=== PATIENT | female | born 1935 | race Caucasian/White ===

== ENCOUNTER 2023-08-30 10:30 | Inpatient (IN) ==
--- NOTE | 2023-08-30 11:06 | Emergency Department Note ---
Impression & Plan Closed left humeral fracture, Anterior subluxation of shoulder, Closed fracture of pubic ramus ED Provider Note NAME: FARHAT PACHECO AGE: 88 SEX: F : 1935 ARRIVES VIA: Ambulance INFORMANT: Patient, ED PROVIDER(S): Cedric Cui MD CHIEF COMPLAINT: Fall, shoulder and hip pain MEDICAL DECISION MAKING: Patient presents after a fall and associated shoulder and hip pain and was not ambulatory after the incident. No head strike or LOC with the patient does take Eliquis. CT of the head and cervical spine obtained along with plain films of the left upper and left lower extremity. Patient did not initially request any pain medication but was offered Tylenol which she was agreeable to. Patient also ordered an ice pack. Patient CT and cervical spine negative. The patient was noted be tachycardic and the patient did miss her morning medications the patient was ordered for Toprol 50 mg. EKG does show A-fib with RVR. Patient does not have any chest pains or shortness of breath. Patient's left upper extremity x-rays show concern for fracture dislocation of the left humerus. I did speak with Dr. Kerns stated that this could be secondary to hematoma but may be difficult for reduction in light of the patient's associated fracture pattern. He recommended CT of the shoulder which was ordered. Si[place] the shoulder does show impacted fracture subluxation. You further reviewed this and discussed this with some colleagues who recommended a splint. The patient and family were informed of the findings. The patient was trialed with a bout of ambulation given the patient's pubic rami fractures but the patient was unable to do this. Blood work was obtained and IV was established. Patient with a white count of 11.3 with hemoglobin 11 platelet count is unremarkable. Patient's creatinine 1.2. I did speak with case management to ascertain whether the patient could go to rehab today and they stated that this could not be done unless they were admitted. I subsequently did speak with the on-call hospitalist service and the patient was admitted by Dr. Skelton. Definitive Fracture Care note: Dx: Left humerus fracture sling, Plan: Immobilization, rest, ice, elevation, analgesia, orthopedic follow up in 3-5 days. Discussion w/ other healthcare providers: Dr. Skelton inpatient medicine service Dr. Kerns orthopedics ED case management Prior /Outside records reviewed: I reviewed the patient's outpatient medication list which includes atorvastatin metformin vitamin D3 metoprolol vitamin B12 Eliquis diltiazem furosemide glimepiride Differential diagnosis: Fracture, dislocation, contusion, strain, sprain, ICH, hemothorax, intra- abdominal injury, anemia among other causes were considered. Diagnostics, as interpreted by me: ECG: A-fib RVR, rate 107, normal QRS, left axis deviation no ST elevations. T wave inversions inferiorly and laterally. Cardiac monitoring: An order was placed for continuous cardiac monitoring. The monitor shows a rate of 95 with irregular irregular rhythm. Patient was placed on pulse oximetry Medical decision rules: None Imaging studies: I informally interpreted the patient's left shoulder x-ray which does show fracture dislocation of the left humerus with formal report to follow. I informally interpreted the patient's left hip and pelvis x-ray which does show pubic rami fracture. HPI: Patient presents due to concern for fall that occurred just prior to arrival. Patient reportedly was down for about an hour. The patient states that she was going to flower picker her dog when everything happened so quickly she fell to her left side. The patient was unable to get on her own. Patient currently complains of left shoulder and hip pain. Patient denies any chest pains or shortness of breath no head or neck pain. The patient does take Eliquis for what she believes is atrial flutter last took it yesterday morning. Patient denies any difficulty breathing or chest pain or shortness of breath no nausea vomiting and no LOC. PAST MEDICAL HISTORY: See Below PAST SURGICAL HISTORY: See Below SOCIAL HISTORY: See Below HOME MEDICATIONS: See Below ALLERGIES: See Below VITALS: See Below PHYSICAL EXAMINATION: GENERAL: NAD, non-toxic. EYE EXAM: Normal conjunctiva. PERRL, no anisocoria and EOM's grossly intact w/o pain. Head: Normocephalic atraumatic. OROPHARYNX: Moist mucus membranes, grossly normal dentition. NECK: Trachea midline, no stridor. No midline C-spine TTP. LUNGS: Clear to auscultation. Normal chest wall mechanics. HEART: NSR, no MRG. ABDOMEN: Abdomen soft, non-tender, no masses, no rebound or guarding. BACK: No CVA TTP. SKIN: No rashes and no bruising. UPPER EXTREMITIES: Left lateral shoulder pain with possible deformity, no pain to the distal humerus elbow forearm or wrist or hand. Median ulnar and radial nerves intact. LOWER EXTREMITIES: Grossly normal, no edema. Able to raise the right lower extremity off the bed decreased mobility left lower extremity secondary to pain, pain noted to the left lateral hip. NEURO EXAM: A&O x3, cranial nerves II-XII grossly intact, normal speech, moves all 4 extremities. Past Med/Surg History Medical History Atrial flutter Hyperlipidemia GERD (gastroesophageal reflux disease) Diabetes Surgical History H/O: hysterectomy Social History Smoking Status: Never smoker Preferred Language: Pashto Communication Ability: Effective Hearing Ability: Normal current occupational status: retired Feels Safe at Home: Yes Allergies Allergies Allergy/AdvReac Type Severity Reaction Status Date / Time No Known Allergies Allergy Unverified 08/30/23 16:14 Home Meds Home Medications Medication Instructions Recorded Confirmed apixaban 2.5 mg tablet (Eliquis) 2.5 mg PO BID 08/30/23 08/30/23 atorvastatin 10 mg tablet 10 mg PO DAILY 08/30/23 08/30/23 diltiazem HCl 240 mg 240 mg PO DAILY 08/30/23 08/30/23 capsule,extended release 24 hr, controlled (DILT-XR) metoprolol succinate 50 mg 50 mg PO DAILY 08/30/23 08/30/23 tablet,extended release 24 hr omeprazole 20 mg capsule,delayed 20 mg PO DAILYBB 08/30/23 08/30/23 release semaglutide 7 mg tablet (Rybelsus) 7 mg PO DAILY 08/30/23 08/30/23 Results & Data (ED) Vital Signs Vital Signs - 24 hr 08/30/23 10:46 08/30/23 11:37 08/30/23 13:57 Temperature 36.5 C Temperature Source Oral Pulse Rate 89 88 Pulse Rate [Right Finger] 95 H Respiratory Rate 20 20 22 Respiratory Effort / Characteristics Respiratory Depth Blood Pressure 135/104 H Blood Pressure [Right Arm] 116/84 Blood Pressure Mean 114 Blood Pressure Mean [Right Arm] 94 Blood Pressure Position [Right Arm] Pulse Oximetry 96 97 95 Oxygen Delivery Method Room Air Room Air Room Air Sepsis Recent Fever Within 48 Hours No Sepsis New/Unexplained Change in Mental Status N/A Sepsis Action Taken by Nursing No Action Required 08/30/23 14:00 08/30/23 15:00 08/30/23 16:25 Temperature Temperature Source Pulse Rate 109 H 131 H Pulse Rate [Right Finger] 130 H Respiratory Rate 20 18 Respiratory Effort / Characteristics Respiratory Depth Blood Pressure Blood Pressure [Right Arm] 131/85 Blood Pressure Mean Blood Pressure Mean [Right Arm] 100 Blood Pressure Position [Right Arm] Pulse Oximetry 96 95 Oxygen Delivery Method Room Air Room Air Sepsis Recent Fever Within 48 Hours Sepsis New/Unexplained Change in Mental Status Sepsis Action Taken by Nursing 08/30/23 17:00 Temperature Temperature Source Pulse Rate Pulse Rate [Right Finger] 133 H Respiratory Rate 18 Respiratory Effort / Characteristics Non-Labored Spontaneous Respiratory Depth Normal Blood Pressure Blood Pressure [Right Arm] 94/74 L Blood Pressure Mean Blood Pressure Mean [Right Arm] 80 Blood Pressure Position [Right Arm] Sitting Pulse Oximetry 96 Oxygen Delivery Method Room Air Sepsis Recent Fever Within 48 Hours Sepsis New/Unexplained Change in Mental Status Sepsis Action Taken by [facility] Medications Current Medication List: was personally reviewed by me Laboratory Data Attestation: I reviewed the patient's lab results. 08/30/23 16:08 08/30/23 16:08 Lab Results 08/30/23 Range/Units 16:08 WBC 11.32 H (4.8-10.8) K/ul RBC 3.75 L (4.20-5.40) M/uL Hgb 11.2 L (12.0-16.0) g/dl Hct 34.3 L (37.0-47.0) % MCV 91.5 (80.0-100.0) fL MCH 29.9 (25.0-34.0) pg MCHC 32.7 (32.0-36.0) g/dL RDW Std Deviation 41.5 (36.4-46.3) fL RDW Coeff of Joshua 12.4 (11.5-14.5) % Plt Count 171 (130-400) K/uL MPV 12.0 (9.4-12.4) fL Immature Gran % (Auto) 0.5 % Neut % (Auto) 85.0 % Lymph % (Auto) 7.7 % [place] % (Auto) 6.5 % Eos % (Auto) 0.1 % Baso % (Auto) 0.2 % Neut # (Auto) 9.62 H (1.40-6.50) K/uL Lymph # (Auto) 0.87 L (1.20-3.40) K/uL [place] # (Auto) 0.74 H (0.11-0.59) K/uL Eos # (Auto) 0.01 (0.00-0.50) K/uL Baso # (Auto) 0.02 (0.00-0.20) K/uL Immature Gran # (Auto) 0.06 (0.01-0.20) K/uL PT 11.8 (9.0-12.0) Seconds INR 1.1 (0.9-1.1) Sodium 138 (136-145) mmol/L Potassium 4.2 (3.5-5.1) mmol/L Chloride 106 (98-107) mmol/L Carbon Dioxide 22 (21-32) mmol/L Anion Gap 10 (3-11) BUN 31 H (6-23) mg/dl Creatinine 1.22 H (0.6-1.2) mg/dl Est Cr Clr Drug Dosing 31.0 ml/min Est GFR ( Amer) 46.5 ml/min Est GFR (Non-Af Amer) 40.1 ml/min BUN/Creatinine Ratio 25.4 H (10-20) Glucose 196 H (70-99(Fasting)) mg/dl Calcium 9.2 (8.6-10.3) mg/dl Magnesium 1.5 L (1.7-2.4) mg/dl Total Bilirubin 0.8 (0.2-1.0) mg/dl AST 18 (13-39) U/L ALT 15 (7-52) U/L Alkaline Phosphatase 72 (34-104) U/L Total Protein 6.7 (6.0-8.3) gm/dl Albumin 4.1 (3.4-5.0) gm/dl Globulin 2.6 (2.5-4.0) gm/dl Albumin/Globulin Ratio 1.6 (0.9-2) TSH 0.639 (0.300-4.500) uIu/ml Administered Medications Discontinued Medications Acetaminophen (Acetaminophen 500 Mg Tab) 1,000 mg PO NOW STA Stop: 08/30/23 11:25 Last Admin: 08/30/23 11:32 Dose: 1,000 mg Documented By: MICHAEL Metoprolol Tartrate (Metoprolol Tartrate 50 Mg Tab) 50 mg PO NOW STA Stop: 08/30/23 14:39 Last Admin: 08/30/23 14:46 Dose: 50 mg Documented By: DERIK Imaging Data Radiologist's Impression: Cervical Spine CT 08/30/23 11:23 CT cervical spine wo con CLINICAL HISTORY: Trauma TECHNIQUE: Multidetector row helical CT of the cervical spine was performed without administration of intravenous contrast. Coronal and sagittal reformations were obtained. Automated dose lowering techniques and/or adjustment according to patient size were utilized for this exam. Comparison: None available at the time of this dictation. FINDINGS: No acute fractures or subluxations are identified. Degenerative changes are seen in the visualized spine. The alignment is normal. Soft tissues are unremarkable. IMPRESSION: Degenerative changes without evidence of acute bony injury. ACT 112: Negative or not required by law. Electronically signed by: Kulwinder Blake M.D. 08/30/2023 12:30 PM Femur X-Ray 08/30/23 11:23 XR femur LT 2V routine HISTORY: 88 years-old Female fall, pain acute left thigh pain status post fall COMPARISON: Pelvis and left hip radiographs of same day TECHNIQUE: 2 views of the left femur FINDINGS: Age-indeterminate nondisplaced fracture of the left inferior pubic ramus. Demineralized appearance of the bones. Vascular calcifications. 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 No acute femoral fracture identified IMPRESSION: 1. No acute femoral fracture. 2. Age-indeterminate nondisplaced left inferior pubic ramus fracture. ACT 112: Negative or not required by law. The above report was generated using voice recognition software. It may contain grammatical, syntax or spelling errors. Electronically signed by: Juan Jose Boss M.D. 08/30/2023 1:[address] 08/30/23 11:23 CT head/brain wo con CLINICAL HISTORY: 88 years-old Female with Trauma. Acute head trauma TECHNIQUE: Multiple axial CT images of the head were obtained without contrast. A dose lowering technique was utilized adhering to the principles of ALARA. COMPARISON: CT cervical spine of same day FINDINGS: No acute intracranial hemorrhage, midline shift, intracranial mass, hydrocephalus, territorial ischemia or abnormal extra-axial collection. Involutional changes with chronic microvascular ischemic disease. The calvarium is intact. The paranasal sinuses, mastoid air cells, and middle ear cavities are clear. IMPRESSION: No acute intracranial abnormality or calvarial fracture. ACT 112: Negative or not required by law. The above report was generated using voice recognition software. It may contain grammatical, syntax or spelling errors. Electronically signed by: Juan Jose Boss M.D. 08/30/2023 12:40 PM Hip/Pelvis X-Ray 08/30/23 11:23 XR hip LT 2V w pelvis CLINICAL HISTORY: fall, pain COMPARISON STUDY: None. FINDINGS: Mild deformity at the left inferior pubic ramus consistent with an age-indeterminate fracture. Otherwise, no fracture or dislocation within the right or left femur. Soft tissues are unremarkable. Mild vascular calcifications are noted. IMPRESSION: Age-indeterminate nondisplaced fracture within the left inferior pubic ramus. ACT 112: Negative or not required by law. Electronically signed by: Nico Allen M.D. 08/30/2023 1:21 PM Humerus X-Ray 08/30/23 11:23 XR humerus LT 2V CLINICAL HISTORY: fall, pain COMPARISON STUDY: None. FINDINGS: There is a displaced left humeral head/neck fracture with anterior dislocation of the humeral head in relation to the glenoid. The mid to distal left humerus is intact. Soft tissue swelling within the left shoulder. IMPRESSION: Left humeral head/neck fracture with anterior dislocation. ACT 112: Negative or not required by law. Electronically signed by: Nico Allen M.D. 08/30/2023 1:22 PM Shoulder X-Ray 08/30/23 11:23 XR shoulder LT min 2V routine CLINICAL HISTORY: fall, pain TECHNIQUE: 3 views of the left shoulder were obtained. Comparison: None available at the time of this dictation. FINDINGS: Impacted fracture of the humeral head is seen. There is anterior dislocation of the glenohumeral joint. Soft tissue swelling is seen about the shoulder. IMPRESSION: Fracture dislocation of the humeral head. ACT 112: Negative or not required by law. Electronically signed by: Kulwinder Blake M.D. 08/30/2023 1:[address] 08/30/23 13:46 CT shoulder LT wo con HISTORY: 88 years-old Female eval shoulder dislocation/frx acute left shoulder pain with fracture status post fall COMPARISON: Radiographs of the left shoulder same day TECHNIQUE: Multiple axial CT images of the left shoulder were obtained without IV contrast. Additional 3-D rendering images were generated from a separate workstation and sent for review. A dose lowering technique was used consistent with the principals of KRISTINE. FINDINGS: Study is mildly motion degraded. Small moderate joint effusion/hemarthrosis of the glenohumeral joint with deep tissue edema/hemorrhage extending into the adjacent musculature and axillary space. Cardiomegaly with coronary arterial and mitral annular calcifications. The imaged lung mcallister appear clear. Demineralized appearance of the bones. Benign-appearing bone island of the glenoid. Moderate moderate osteophyte is the glenohumeral and AC joints. There is inferior subluxation of the glenohumeral joint with an acute comminuted, impacted and displaced proximal humeral fracture. Fractures involve the greater and lesser tuberosities and surgical neck. 3 cm of impaction with posterior lateral displacement measuring up to approximately 2 cm. No large intra- articular loose bodies identified. Tendons and ligaments are not well evaluated by CT technique. There is mild atrophy of the rotator cuff musculature. IMPRESSION: 1. Acute comminuted, impacted and displaced proximal humeral fracture as above. 2. Posttraumatic joint effusion/hemarthrosis with inferior glenohumeral subluxation. ACT 112: Negative or not required by law. The above report was generated using voice recognition software. It may contain grammatical, syntax or spelling errors. Electronically signed by: Juan Jose Boss M.D. 08/30/2023 3:02 PM Discharge Plan Visit Data Chief Complaint: Fall Stated Complaint: FALL, L SHOULDER PAIN ED Provider: Cedric Cui Discharge Problem: Closed left humeral fracture, Anterior subluxation of shoulder, Closed fracture of pubic ramus Patient Disposition: Admitted As Inpatient Discharge Instructions Interventions: ED Discharge Assessment Last Done: 08/30/23 17:59 Discharge Problem: Closed left humeral fracture Qualifiers: Encounter type: initial encounter Humerus Location: proximal Fracture morphology: other fracture Fracture alignment: displaced Qualified Code(s): S 42.292A - Other displaced fracture of upper end of left humerus, initial encounter for closed fracture Anterior subluxation of shoulder Qualifiers: Encounter type: initial encounter Laterality: left Qualified Code(s): S43.012A - Anterior subluxation of left humerus, initial encounter Closed fracture of pubic ramus Qualifiers: Encounter type: initial encounter Laterality: left Qualified Code(s): S32.592A - Other specified fracture of left pubis, initial encounter for closed fracture
[2023-08-30] MEDS: ACETAMINOPHEN 500 MG TAB PO STA (11:32)
--- NOTE | 2023-08-30 12:32 | CT Scan Report ---
CT cervical spine wo con CLINICAL HISTORY: Trauma TECHNIQUE: Multidetector row helical CT of the cervical spine was performed without administration of intravenous contrast. Coronal and sagittal reformations were obtained. Automated dose lowering techn iques and/or adjustment according to patient size were utilized for this exam. Comparison: None available at the time of this dictation. FINDINGS: No acute fractures or subluxations are identified. Degenerative changes are seen in the visualized sp ine. The alignment is normal. Soft tissues are unremarkable. IMPRESSION: Degenerative changes without evidence of acute bony injury. ACT 112: Negative or not required by law. Electronically signed by: Kulwinder Blake M.D. 08/30/2023 12:30 PM
--- NOTE | 2023-08-30 12:41 | CT Scan Report ---
CT head/brain wo con CLINICAL HISTORY: 88 years-old Female with Trauma. Acute head trauma TECHNIQUE: Multiple axial CT images of the head were obtained without contrast. A dose lowering tech nique was utilized adhering to the principles of ALARA. COMPARISON: CT cervical spine of same day FINDINGS: No acute intracranial hemorrhage, midline shift, intracranial mass, hydrocephalus, territorial ischem ia or abnormal extra-axial collection. Involutional changes with chronic microvascular ischemic disea se. The calvarium is intact. The paranasal sinuses, mastoid air cells, and middle ear cavities are clear . IMPRESSION: No acute intracranial abnormality or calvarial fracture. ACT 112: Negative or not required by law. The above report was generated using voice recognition software. It may contain grammatical, syntax o r spelling errors. Electronically signed by: Juan Jose Boss M.D. 08/30/2023 12:40 PM
--- NOTE | 2023-08-30 13:10 | XRay Report ---
XR shoulder LT min 2V routine CLINICAL HISTORY: fall, pain TECHNIQUE: 3 views of the left shoulder were obtained. Comparison: None available at the time of this dictation. FINDINGS: Impacted fracture of the humeral head is seen. There is anterior dislocation of the glenohumeral join t. Soft tissue swelling is seen about the shoulder. IMPRESSION: Fracture dislocation of the humeral head. ACT 112: Negative or not required by law. Electronically signed by: Kulwinder Blake M.D. 08/30/2023 1:08 PM
--- NOTE | 2023-08-30 13:22 | XRay Report ---
XR hip LT 2V w pelvis CLINICAL HISTORY: fall, pain COMPARISON STUDY: None. FINDINGS: Mild deformity at the left inferior pubic ramus consistent with an age-indeterminate fractu re. Otherwise, no fracture or dislocation within the right or left femur. Soft tissues are unremarkab le. Mild vascular calcifications are noted. IMPRESSION: Age-indeterminate nondisplaced fracture within the left inferior pubic ramus. ACT 112: Negative or not required by law. Electronically signed by: Nico Allen M.D. 08/30/2023 1:21 PM
--- NOTE | 2023-08-30 13:23 | XRay Report ---
XR humerus LT 2V CLINICAL HISTORY: fall, pain COMPARISON STUDY: None. FINDINGS: There is a displaced left humeral head/neck fracture with anterior dislocation of the humer al head in relation to the glenoid. The mid to distal left humerus is intact. Soft tissue swelling wi thin the left shoulder. IMPRESSION: Left humeral head/neck fracture with anterior dislocation. ACT 112: Negative or not required by law. Electronically signed by: Nico Allen M.D. 08/30/2023 1:22 PM
--- NOTE | 2023-08-30 13:34 | XRay Report ---
XR femur LT 2V routine HISTORY: 88 years-old Female fall, pain acute left thigh pain status post fall COMPARISON: Pelvis and left hip radiographs of same day TECHNIQUE: 2 views of the left femur FINDINGS: Age-indeterminate nondisplaced fracture of the left inferior pubic ramus. Demineralized appearance of the bones. Vascular calcifications. 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 No acute femoral fr acture identified IMPRESSION: 1. No acute femoral fracture. 2. Age-indeterminate nondisplaced left inferior pubic ramus fracture. ACT 112: Negative or not required by law. The above report was generated using voice recognition software. It may contain grammatical, syntax o r spelling errors. Electronically signed by: Juan Jose Boss M.D. 08/30/2023 1:33 PM
[2023-08-30] MEDS: METOPROLOL TARTRATE 50 MG TAB PO STA (14:46)
--- NOTE | 2023-08-30 15:03 | CT Scan Report ---
CT shoulder LT wo con HISTORY: 88 years-old Female eval shoulder dislocation/frx acute left shoulder pain with fracture st atus post fall COMPARISON: Radiographs of the left shoulder same day TECHNIQUE: Multiple axial CT images of the left shoulder were obtained without IV contrast. Additiona l 3-D rendering images were generated from a separate workstation and sent for review. A dose lowerin g technique was used consistent with the principals of KRISTINE. FINDINGS: Study is mildly motion degraded. Small moderate joint effusion/hemarthrosis of the glenohumeral joint with deep tissue edema/hemorrhage extending into the adjacent musculature and axillary space. Cardio megaly with coronary arterial and mitral annular calcifications. The imaged lung mcallister appear clear. Demineralized appearance of the bones. Benign-appearing bone island of the glenoid. Moderate moderate osteophyte is the glenohumeral and AC joints. There is inferior subluxation of the glenohumeral join t with an acute comminuted, impacted and displaced proximal humeral fracture. Fractures involve the g reater and lesser tuberosities and surgical neck. 3 cm of impaction with posterior lateral displaceme nt measuring up to approximately 2 cm. No large intra-articular loose bodies identified. Tendons and ligaments are not well evaluated by CT technique. There is mild atrophy of the rotator cu ff musculature. IMPRESSION: 1. Acute comminuted, impacted and displaced proximal humeral fracture as above. 2. Posttraumatic joint effusion/hemarthrosis with inferior glenohumeral subluxation. ACT 112: Negative or not required by law. The above report was generated using voice recognition software. It may contain grammatical, syntax o r spelling errors. Electronically signed by: Juan Jose Boss M.D. 08/30/2023 3:02 PM
[2023-08-30 16:31] LABS: Basophils # (auto) 0.02 K/uL (0.00-0.20); Basophils % (auto) 0.2 %; Eosinophils # (auto) 0.01 K/uL (0.00-0.50); Eosinophils % (auto) 0.1 %; Hematocrit (blood only) 34.3 % (37.0-47.0); Hemoglobin 11.2 g/dl (12.0-16.0); Immature Granulocytes # (auto) 0.06 K/uL (0.01-0.20); Immature Granulocytes % (auto) 0.5 %; Lymphocytes # (auto) 0.87 K/uL (1.20-3.40); Lymphocytes % (auto) 7.7 %; Mean Corpuscular Hemoglobin 29.9 pg (25.0-34.0); Mean Corpuscular Hgb Conc 32.7 g/dL (32.0-36.0); Mean Corpuscular Volume 91.5 fL (80.0-100.0); Monocytes # (auto) 0.74 K/uL (0.11-0.59); Monocytes % (auto) 6.5 %; Neutrophils # (auto) 9.62 K/uL (1.40-6.50); Platelet Count 171 K/uL (130-400); RDW Coefficient of Variation 12.4 % (11.5-14.5); RDW Standard Deviation 41.5 fL (36.4-46.3); Red Blood Count 3.75 M/uL (4.20-5.40); White Blood Count 11.32 K/ul (4.8-10.8)
[2023-08-30 16:44] LABS: Albumin Globulin Ratio 1.6 (0.9-2); Albumin Level 4.1 gm/dl (3.4-5.0); BUN Creatinine Ratio 25.4 (10-20); Bilirubin,Total 0.8 mg/dl (0.2-1.0); Calcium 9.2 mg/dl (8.6-10.3); Est GFR (African American) 46.5 ml/min; Est GFR (Non-African American) 40.1 ml/min; Globulin 2.6 gm/dl (2.5-4.0); Magnesium 1.5 mg/dl (1.7-2.4); Potassium 4.2 mmol/L (3.5-5.1); Total Protein 6.7 gm/dl (6.0-8.3)
[2023-08-30 16:57] LABS: INR 1.1 (0.9-1.1); Prothrombin Time 11.8 Seconds (9.0-12.0); Thyroid Stimulating Hormone 0.639 uIu/ml (0.300-4.500)
--- NOTE | 2023-08-30 17:47 | History & Physical Report ---
Date of Service August 30, 2023 Assessment & Plan (1) Atrial fibrillation with rapid ventricular response: Plan: Known diagnosis Suspected due to missing her usual medications - unknown if she has paroxysmal or permanent atrial fibrillation Her usual metoprolol was given in the ER, give diltiazem now Hold Eliquis due to acute fractures pending serial hemoglobin measurements (2) Fracture of left inferior pubic ramus: Plan: Hold Eliquis until hemoglobin stability established WBAT Consult orthopedics (3) Closed left humeral fracture: Plan: Arm sling consult orthopedics (4) Anterior subluxation of shoulder: (5) Hyperlipidemia: Plan: Continue atorvastatin (6) GERD (gastroesophageal reflux disease): Plan: Switch omeprazole for pantoprazole per hospital formuilary (7) Diabetes: Plan: HbA1C with AM labs Continue Rybelsus Novolog: --Goal BSG Range: Low 110 mg/dL, High 140 mg/dL --Correction Factor: 45 mg/dL/unit No carb coverage --BSGs ACHS if eating, q6h if npo Plan VTE Prophylaxis - deferred pending repeat serial hemoglobin Diet - T2DM Disposition - admit to med/tele Admission and Anticipated Discharge Date Admission Date: August 30, 2023 History of Present Illness Chief Complaint: Left shoulder pain Left hip pain Primary Care Provider: Keesha Younger MD Alicia Burden is an 88 year old female who presents to the ER after ground- level fall from standing while taking her dog outside this morning. Patient was on the ground for 1 hour when her family member went to check on her and found her on the ground. She did not hit her head but landed on the left side with left shoulder pain and left hip pain. She lives by herself at home. She is on Eliquis. Landed on grass. No chest pain, dizziness or shortness of breath prior to falling. No LOC. Lost her balance as she leaned over. Atrial fibrillation is known diagnosis. She missed all her morning medications. Poker Manager is Alfredo Pierce - Dr Gianna Luna. Allergies Allergy/AdvReac Type Severity Reaction Status Date / Time No Known Allergies Allergy Unverified 08/30/23 16:14 Home Medications Medication Instructions Recorded Confirmed Type apixaban 2.5 mg tablet (Eliquis) 2.5 mg PO BID 08/30/23 08/30/23 History atorvastatin 10 mg tablet 10 mg PO DAILY 08/30/23 08/30/23 History diltiazem HCl 240 mg 240 mg PO DAILY 08/30/23 08/30/23 History capsule,extended release 24 hr, controlled (DILT-XR) metoprolol succinate 50 mg 50 mg PO DAILY 08/30/23 08/30/23 History tablet,extended release 24 hr omeprazole 20 mg capsule,delayed 20 mg PO DAILYBB 08/30/23 08/30/23 History release semaglutide 7 mg tablet (Rybelsus) 7 mg PO DAILY 08/30/23 08/30/23 History Past Med/Surg History Medical History (Updated 08/30/23 @ 20:04 by Kendall Skelton MD) Atrial fibrillation Atrial flutter Hyperlipidemia GERD (gastroesophageal reflux disease) Diabetes Surgical History H/O: hysterectomy Social History Smoking Status: Never smoker Hx Alcohol Use: No Hx Substance Use: No Preferred Language: Urdu Communication Ability: Effective Hearing Ability: Normal Second Baker Required: No Beliefs That Will Affect Care: None Current Living Situation: Alone current occupational status: retired Other Information That Helps Us Care for You: No Feels Safe at Home: Yes Safety Concerns: Feels Safe At This Time Assistive Devices: Denture - Upper and Glasses Review of Systems Review of Systems: All systems reviewed & are unremarkable except as noted in HPI & below Physical Exam Constitutional: WD/WN, vitals as above Eyes: PERRL, conjunctivae normal, anicteric sclerae ENMT: Mouth: + dry oral mucous membranes Respiratory: normal respiratory effort, lungs clear to auscultation Cardiovascular: Rate/Rhythm: + tachycardic and + irregularly irregular Heart Sounds: no murmur Extremities: normal capillary refill; no calf tenderness and no pedal edema Gastrointestinal (Abdomen): normal bowel sounds, soft, nontender, no hepatosplenomegaly Musculoskeletal: painful swollen left shoulder, normal radial pulse distally with normal sensation 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 No pain on internal/external rotation of hips b/l Skin: no rashes, warm and dry Neurologic: awake; + does not move all extremities (movement of left shoulder painful) and not confused Psychiatric: A+Ox3, euthymic affect Results & Data Results & Data Vital Signs (Past 12 Hours) Vital Signs Temp Pulse Pulse Resp BP BP Pulse Ox 08/30/23 16:25 131 H 18 95 08/30/23 15:00 130 H 20 131/85 96 08/30/23 14:00 109 H 08/30/23 13:57 95 H 22 116/84 95 08/30/23 11:37 88 20 97 08/30/23 10:46 36.5 C 89 20 135/104 H 96 O2 Del Method 08/30/23 16:25 Room Air 08/30/23 15:00 Room Air 08/30/23 14:00 08/30/23 13:57 Room Air 08/30/23 11:37 Room Air 08/30/23 10:46 Room Air Laboratory Results Abnormal lab results 08/30/23 Range/Units 16:08 WBC 11.32 H (4.8-10.8) K/ul RBC 3.75 L (4.20-5.40) M/uL Hgb 11.2 L (12.0-16.0) g/dl Hct 34.3 L (37.0-47.0) % Neut # (Auto) 9.62 H (1.40-6.50) K/uL Lymph # (Auto) 0.87 L (1.20-3.40) K/uL [place] # (Auto) 0.74 H (0.11-0.59) K/uL BUN 31 H (6-23) mg/dl Creatinine 1.22 H (0.6-1.2) mg/dl BUN/Creatinine Ratio 25.4 H (10-20) Glucose 196 H (70-99(Fasting)) mg/dl Magnesium 1.5 L (1.7-2.4) mg/dl Diagnostic Findings CT head/brain wo con CLINICAL HISTORY: 88 years-old Female with Trauma. Acute head trauma TECHNIQUE: Multiple axial CT images of the head were obtained without contrast. A dose lowering technique was utilized adhering to the principles of ALARA. COMPARISON: CT cervical spine of same day FINDINGS: No acute intracranial hemorrhage, midline shift, intracranial mass, hydrocephalus, territorial ischemia or abnormal extra-axial collection. Involutional changes with chronic microvascular ischemic disease. The calvarium is intact. The paranasal sinuses, mastoid air cells, and middle ear cavities are clear. IMPRESSION: No acute intracranial abnormality or calvarial fracture. CT cervical spine wo con CLINICAL HISTORY: Trauma TECHNIQUE: Multidetector row helical CT of the cervical spine was performed without administration of intravenous contrast. Coronal and sagittal reformations were obtained. Automated dose lowering techniques and/or adjustment according to patient size were utilized for this exam. Comparison: None available at the time of this dictation. FINDINGS: No acute fractures or subluxations are identified. Degenerative changes are seen in the visualized spine. The alignment is normal. Soft tissues are unremarkable. IMPRESSION: Degenerative changes without evidence of acute bony injury. XR hip LT 2V w pelvis CLINICAL HISTORY: fall, pain COMPARISON STUDY: None. FINDINGS: Mild deformity at the left inferior pubic ramus consistent with an age-indeterminate fracture. Otherwise, no fracture or dislocation within the right or left femur. Soft tissues are unremarkable. Mild vascular calcifications are noted. IMPRESSION: Age-indeterminate nondisplaced fracture within the left inferior pubic ramus. XR humerus LT 2V CLINICAL HISTORY: fall, pain COMPARISON STUDY: None. FINDINGS: There is a displaced left humeral head/neck fracture with anterior dislocation of the humeral head in relation to the glenoid. The mid to distal left humerus is intact. Soft tissue swelling within the left shoulder. IMPRESSION: Left humeral head/neck fracture with anterior dislocation. XR shoulder LT min 2V routine CLINICAL HISTORY: fall, pain TECHNIQUE: 3 views of the left shoulder were obtained. Comparison: None available at the time of this dictation. FINDINGS: Impacted fracture of the humeral head is seen. There is anterior dislocation of the glenohumeral joint. Soft tissue swelling is seen about the shoulder. IMPRESSION: Fracture dislocation of the humeral head. CT shoulder LT wo con HISTORY: 88 years-old Female eval shoulder dislocation/frx acute left shoulder pain with fracture status post fall COMPARISON: Radiographs of the left shoulder same day TECHNIQUE: Multiple axial CT images of the left shoulder were obtained without IV contrast. Additional 3-D rendering images were generated from a separate workstation and sent for review. A dose lowering technique was used consistent with the principals of KRISTINE. FINDINGS: Study is mildly motion degraded. Small moderate joint effusion/hemarthrosis of the glenohumeral joint with deep tissue edema/hemorrhage extending into the adjacent musculature and axillary space. Cardiomegaly with coronary arterial and mitral annular calcifications. The imaged lung mcallister appear clear. Demineralized appearance of the bones. Benign-appearing bone island of the glenoid. Moderate moderate osteophyte is the glenohumeral and AC joints. There is inferior subluxation of the glenohumeral joint with an acute comminuted, impacted and displaced proximal humeral fracture. Fractures involve the greater and lesser tuberosities and surgical neck. 3 cm of impaction with posterior lateral displacement measuring up to approximately 2 cm. No large intra- articular loose bodies identified. Tendons and ligaments are not well evaluated by CT technique. There is mild atrophy of the rotator cuff musculature. IMPRESSION: 1. Acute comminuted, impacted and displaced proximal humeral fracture as above. 2. Posttraumatic joint effusion/hemarthrosis with inferior glenohumeral subluxation. XR femur LT 2V routine HISTORY: 88 years-old Female fall, pain acute left thigh pain status post fall COMPARISON: Pelvis and left hip radiographs of same day TECHNIQUE: 2 views of the left femur FINDINGS: Age-indeterminate nondisplaced fracture of the left inferior pubic ramus. Demineralized appearance of the bones. Vascular calcifications. 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 No acute femoral fracture identified IMPRESSION: 1. No acute femoral fracture. 2. Age-indeterminate nondisplaced left inferior pubic ramus fracture. Medications Administered ER Medications Given: Acetaminophen 1000mg PO Metoprolol tartrate 50mg PO ECG Rate (beats per minute): 107 Rhythm: atrial fibrillation Findings: + nonspecific-ST abn Comparison ECG Date: no prior available Code Status & VTE Plan Code Status DNR/DNI per patient wishes VTE Prophylaxis Plan VTE Prophylaxis will be ordered: No PG Care Time/CCT Total # of Minutes Spent Total Time Spent with Patient: Total time spent is greater than 50% in coordination of care (as documented) at patient's floor/unit and/or counseling patient: Coding Level of Care Code 48610 INT INP/OBS CARE 3/75MIN Diagnoses Atrial fibrillation with rapid ventricular response I48.91 Fracture of left inferior pubic ramus S32.592A Closed left humeral fracture S42.302A Anterior subluxation of shoulder S43.013A Hyperlipidemia E78.5 GERD (gastroesophageal reflux disease) K21.9 Diabetes E11.9
[2023-08-30] MEDS ORDERED: GLUCOSE 40% GEL 15 GM TUBE PO PRN (19:36)
[2023-08-30] MEDS ORDERED: DEXTROSE 50% 50 ML SYRINGE IV PRN (19:36)
[2023-08-30] MEDS ORDERED: CARBOHYDRATES FOR HYPOGLYCEMIA PO PRN (19:36)
[2023-08-30] MEDS ORDERED: GLUCOSE 10 TAB/TUBE PO PRN (19:36)
[2023-08-30] MEDS ORDERED: GLUCAGON FOR INJ 1 MG VIAL SQ PRN (19:36)
[2023-08-30] MEDS: LACTATED RINGER'S 500 ML IV ONE (19:45)
[2023-08-30] MEDS: dilTIAZem HCL 240 MG CAPCR PO STA (20:47)
[2023-08-30] MEDS ORDERED: APIXABAN 2.5 MG TAB PO SCH (21:00)
[2023-08-30] MEDS: INSULIN ASPART PER UNIT CHARGE SC SCH (23:05)
[2023-08-30] MEDS: MAGNESIUM SULFATE / D5W 1 GM/100 ML BAG IV SCH (23:07)
[2023-08-31] MEDS: METOPROLOL TARTRATE 1 MG/ML VIAL IV ONE (00:23)
[2023-08-31] MEDS: LACTATED RINGER'S 500 ML IV ONE (00:25)
[2023-08-31] MEDS: ACETAMINOPHEN 500 MG TAB PO PRN (00:30)
[2023-08-31 00:46] LABS: Hematocrit (blood only) 31.1 % (37.0-47.0); Hemoglobin 10.3 g/dl (12.0-16.0)
[2023-08-31] MEDS: PANTOprazole 40 MG TAB PO SCH (05:26)
[2023-08-31 05:27] LABS: Appearance Urine Clear (Clear); Bilirubin Urine Negative (Negative); Blood Urine Negative (Negative); Color Urine Yellow; Glucose Urine UA 3+ (Negative); Ketones Urine Trace (Negative); Leukocyte Esterase Urine Negative (Negative); Nitrite Urine Negative (Negative); Protein Urine Negative (Negative); Specific Gravity Urine 1.023 (1.000-1.030); Urobilinogen Urine Negative (Negative)
[2023-08-31 06:53] LABS: Basophils # (auto) 0.01 K/uL (0.00-0.20); Basophils % (auto) 0.1 %; Eosinophils # (auto) 0.03 K/uL (0.00-0.50); Eosinophils % (auto) 0.4 %; Hematocrit (blood only) 29.5 % (37.0-47.0); Hemoglobin 9.7 g/dl (12.0-16.0); Immature Granulocytes # (auto) 0.05 K/uL (0.01-0.20); Immature Granulocytes % (auto) 0.6 %; Lymphocytes # (auto) 1.35 K/uL (1.20-3.40); Lymphocytes % (auto) 15.8 %; Mean Corpuscular Hgb Conc 32.9 g/dL (32.0-36.0); Mean Corpuscular Volume 91.3 fL (80.0-100.0); Mean Platelet Volume 12.3 fL (9.4-12.4); Monocytes # (auto) 0.61 K/uL (0.11-0.59); Monocytes % (auto) 7.1 %; Platelet Count 134 K/uL (130-400); RDW Coefficient of Variation 12.7 % (11.5-14.5); RDW Standard Deviation 42.3 fL (36.4-46.3); Red Blood Count 3.23 M/uL (4.20-5.40); White Blood Count 8.55 K/ul (4.8-10.8)
[2023-08-31 07:03] LABS: Estimated Average Glucose 237 mg/dl; Hemoglobin A1C 9.9 % (4.5-5.6)
[2023-08-31 07:12] LABS: BUN Creatinine Ratio 26.2 (10-20); Calcium 8.7 mg/dl (8.6-10.3); Est GFR (African American) 46.5 ml/min; Est GFR (Non-African American) 40.1 ml/min; Potassium 4.1 mmol/L (3.5-5.1)
[2023-08-31] MEDS: METOPROLOL SUCC 50MG EXT REL TAB PO SCH (10:26)
[2023-08-31] MEDS: dilTIAZem HCL 240 MG CAPCR PO SCH (10:26)
[2023-08-31] MEDS: ATORVASTATIN 10 MG TAB PO SCH (12:58)
--- NOTE | 2023-08-31 14:30 | Orthopedic Consultation ---
Date of Consultation August 31, 2023 Assessment & Plan (1) Fracture of left inferior pubic ramus: -Non-operative management -May continue to WBAT -PT/OT -Follow up with Orthopedics as an outpatient after discharge (2) Closed left humeral fracture: -Discussed risks vs. benefits of non-operative treatment vs. surgical intervention for reverse shoulder replacement -At this point in time, non-operative treatment is a good option -Recommend sling and non-weight bearing activity through the left arm. May remove sling to practice elbow ROM a few times a day to avoid getting stiff -Follow up with Orthopedics as an outpatient for reevaluation and to discuss further plan. If she fails non-operative treatment, may consider reverse shoulder replacement if she is medically optimized -May continue Eliquis from an orthopedic standpoint as we are not currently planning to do surgery while she is inpatient Follow-up with Dr. Humphries in orthopedic surgery clinic after discharge. Please call [facility] at [phone] to make an appointment. Orthopedics will sign off. History of Present Illness Reason for Consultation: Left humeral fracture Left inferior pubic ramus fracture Attending Physician: Shayy Miller MD History of Present Illness Ms. Burden is an 88 year old female with history of a-fib with RVR on Eliquis who presents for evaluation after suffering a ground-level fall when she lost her balance and fell onto her left side in the grass while taking her dog out yesterday morning. She did present to the ED and was found to have a left humeral fracture as well as left inferior pubic ramus fracture. Orthopedics was consulted for further evaluation. Allergies Allergy/AdvReac Type Severity Reaction Status Date / Time No Known Allergies Allergy Unverified 08/30/23 16:14 Home Medications Medication Instructions Recorded Confirmed Type apixaban 2.5 mg tablet (Eliquis) 2.5 mg PO BID 08/30/23 08/30/23 History atorvastatin 10 mg tablet 10 mg PO DAILY 08/30/23 08/30/23 History diltiazem HCl 240 mg 240 mg PO DAILY 08/30/23 08/30/23 History capsule,extended release 24 hr, controlled (DILT-XR) metoprolol succinate 50 mg 50 mg PO DAILY 08/30/23 08/30/23 History tablet,extended release 24 hr omeprazole 20 mg capsule,delayed 20 mg PO DAILYBB 08/30/23 08/30/23 History release semaglutide 7 mg tablet (Rybelsus) 7 mg PO DAILY 08/30/23 08/30/23 History Patient History Medical History Atrial fibrillation Atrial flutter Hyperlipidemia GERD (gastroesophageal reflux disease) Diabetes Surgical History H/O: hysterectomy Social History Smoking Status: Never smoker Hx Alcohol Use: No Hx Substance Use: No Preferred Language: Serbian Communication Ability: Effective Hearing Ability: Normal 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 Edema and ecchymosis about the shoulder with tenderness to palpation. ROM limited secondary to pain. Full digital range of motion. Sensa tion and radial pulse intact LLE: No ecchymosis or significant edema. Tender to palpation over the left hip. Compartments soft. No pain with log roll. Notes pain with hip flexion but able to lift leg off bed. Dorsi/plantarflexion intact. D/p pulse intact Neurologic: Awake, alert and oriented x 3 Results & Data Vital Signs (Past 12 Hours) Vital Signs Temp Pulse Pulse Resp BP BP Pulse Ox 08/31/23 11:49 36.3 C L 89 17 95/61 L 94 08/31/23 08:20 36.8 C 79 18 108/77 96 08/31/23 07:31 91 H O2 Del Method 08/31/23 11:49 Room Air 08/31/23 08:20 Room Air 08/31/23 07:31 Diagnostic Findings Imaging reviewed by radiologist and myself as below: Left hip/pelvis XR: Age indeterminate non-displaced fracture within the left inferior pubic ramus Left humeral/shoulder XR: Fracture dislocation of humeral head Left shoulder CT: Acute comminuted, impacted and displaced proximal humeral fracture. Post-traumatic joint effusion/hemarthrosis with inferior glenohumeral subluxation (2) Closed left humeral fracture Encounter type: initial encounter Fracture alignment: displaced Fracture morphology: other fracture Humerus Location: proximal Qualified Code(s): S42.292A - Other displaced fracture of upper end of left humerus, initial encounter for closed fracture
--- NOTE | 2023-08-31 16:45 | Hospitalist Progress Note ---
Date of Service August 31, 2023 Assessment & Plan (1) Atrial fibrillation with rapid ventricular response: Plan: Known diagnosis Suspected due to missing her usual medications - unknown if she has paroxysmal or permanent atrial fibrillation Her usual metoprolol was given in the ER, give diltiazem now Hold Eliquis due to acute fractures pending serial hemoglobin measurements (2) Fracture of left inferior pubic ramus: Plan: continue Eliquis WBAT ortho input appreciated (3) Closed left humeral fracture: Plan: Arm sling pain control conservative treatment (4) Anterior subluxation of shoulder: (5) Hyperlipidemia: Plan: Continue atorvastatin (6) GERD (gastroesophageal reflux disease): Plan: Switch omeprazole for pantoprazole per hospital formuilary (7) Diabetes: Plan: HbA1C with AM labs Continue Ryzoiesus Novolog: --Goal BSG Range: Low 110 mg/dL, High 140 mg/dL --Correction Factor: 45 mg/dL/unit No carb coverage --BSGs ACHS if eating, q6h if npo Plan VTE Prophylaxis - deferred pending repeat serial hemoglobin Diet - T2DM Disposition - admit to med/tele Admission and Anticipated Discharge Date Admission Date: August 30, 2023 Subjective comfortable Review of Systems Review of Systems: pain in left arm, pelvis , denies CP, SOB, fever, chills Physical Exam Physical Exam: head atraumatic neck supple chest CTA b/l heart S1S2 regular abdomen soft , nt, nd extremities left arm in sling neuro AAO times 3 Results & Data Results & Data Vital Signs (Past 12 Hours) Vital Signs Temp Pulse Pulse Resp BP BP Pulse Ox 08/31/23 16:02 37.0 C 73 16 106/71 97 08/31/23 11:49 36.3 C L 89 17 95/61 L 94 08/31/23 08:20 36.8 C 79 18 108/77 96 08/31/23 07:31 91 H O2 Del Method 08/31/23 16:02 Room Air 08/31/23 11:49 Room Air 08/31/23 08:20 Room Air 08/31/23 07:31 PG Care Time/CCT Total # of Minutes Spent Total Time Spent with Patient: Total time spent is greater than 50% in coordination of care (as documented) at patient's floor/unit and/or counseling patient: Coding Level of Care Code 64416 SUB INP/OBS CARE MIN Diagnoses Atrial fibrillation with rapid ventricular response I48.91 Fracture of left inferior pubic ramus S32.592A Closed left humeral fracture S42.292A Encounter type: initial encounter Fracture alignment: displaced Fracture morphology: other fracture Humerus Location: proximal Anterior subluxation of shoulder S43.012A Encounter type: initial encounter Laterality: left Hyperlipidemia E78.5 GERD (gastroesophageal reflux disease) K21.9 Diabetes E11.9 (3) Closed left humeral fracture Encounter type: initial encounter Fracture alignment: displaced Fracture morphology: other fracture Humerus Location: proximal Qualified Code(s): S42.292A - Other displaced fracture of upper end of left humerus, initial encounter for closed fracture (4) Anterior subluxation of shoulder Encounter type: initial encounter Laterality: left Qualified Code(s): S43.012A - Anterior subluxation of left humerus, initial encounter
[2023-08-31] MEDS: APIXABAN 2.5 MG TAB PO SCH (20:37)
[2023-09-01 06:26] LABS: Hematocrit (blood only) 30.3 % (37.0-47.0); Mean Corpuscular Hemoglobin 30.2 pg (25.0-34.0); Mean Corpuscular Volume 91.5 fL (80.0-100.0); Mean Platelet Volume 12.2 fL (9.4-12.4); Platelet Count 136 K/uL (130-400); RDW Coefficient of Variation 12.8 % (11.5-14.5); RDW Standard Deviation 42.1 fL (36.4-46.3); Red Blood Count 3.31 M/uL (4.20-5.40); White Blood Count 8.64 K/ul (4.8-10.8)
[2023-09-01 06:51] LABS: Albumin Globulin Ratio 1.5 (0.9-2); Albumin Level 3.7 gm/dl (3.4-5.0); Bilirubin,Total 0.9 mg/dl (0.2-1.0); Calcium 8.7 mg/dl (8.6-10.3); Creatinine Clr Calc Pharmacy 34.4 ml/min; Est GFR (African American) 52.6 ml/min; Est GFR (Non-African American) 45.4 ml/min; Globulin 2.4 gm/dl (2.5-4.0); Magnesium 1.8 mg/dl (1.7-2.4); Potassium 3.9 mmol/L (3.5-5.1); Total Protein 6.1 gm/dl (6.0-8.3)
--- NOTE | 2023-09-01 07:07 | Electrocardiogram Report ---
Test Reason : Blood Pressure : / mmHG Vent. Rate : 107 BPM Atrial Rate : 000 BPM P-R Int : 000 ms QRS Dur : 078 ms QT Int : 348 ms P-R-T Axes : 000 008 -18 degrees QTc Int : 464 ms Atrial fibrillation with rapid ventricular response Nonspecific T wave abnormality Abnormal ECG No previous ECGs available Confirmed by Reilly Bro ([id number]) on 09/01/2023 7:07:06 AM Referred By: REFERRED SELF Confirmed By:Reilly Bro
[2023-09-01] MEDS: CHOLECALCIFEROL 25 MCG (1000 UNITS) TAB PO SCH (07:44)
[2023-09-01] MEDS: METOPROLOL TARTRATE 1 MG/ML VIAL IV PRN (08:49)
[2023-09-01] MEDS ORDERED: METOPROLOL TARTRATE 25 MG TAB PO SCH (11:30)
--- NOTE | 2023-09-01 11:55 | Hospitalist Progress Note ---
Date of Service September 01, 2023 Assessment & Plan (1) Atrial fibrillation with rapid ventricular response: Plan: Known diagnosis Suspected due to missing her usual medications - unknown if she has paroxysmal or permanent atrial fibrillation on Cardizem 240 mg , metoprolol 50 mg continue eliquis increase Metoprolol consult cdl b driver monitor on tele (2) Fracture of left inferior pubic ramus: Plan: continue Eliquis WBAT ortho input appreciated (3) Closed left humeral fracture: Plan: Arm sling pain control conservative treatment (4) Anterior subluxation of shoulder: (5) Hyperlipidemia: Plan: Continue atorvastatin (6) GERD (gastroesophageal reflux disease): Plan: Switch omeprazole for pantoprazole per hospital formuilary (7) Diabetes: Plan: HbA1C with AM labs Continue Rybelsus Novolog: --Goal BSG Range: Low 110 mg/dL, High 140 mg/dL --Correction Factor: 45 mg/dL/unit No carb coverage --BSGs ACHS if eating, q6h if npo (8) Age-related osteoporosis with current pathological fracture: Plan: conservative treatment ortho input appreciated pain control PT Plan VTE Prophylaxis - deferred pending repeat serial hemoglobin Diet - T2DM Disposition - admit to med/tele Admission and Anticipated Discharge Date Admission Date: August 30, 2023 Subjective comfortable , denies pain, HR is elevated Review of Systems Review of Systems: pain in left arm, pelvis , denies CP, SOB, fever, chills Physical Exam Physical Exam: head atraumatic neck supple chest CTA b/l heart S1S2 tachycardic abdomen soft , nt, nd extremities left arm in sling neuro AAO times 3 Results & Data Results & Data Vital Signs (Past 12 Hours) Vital Signs Temp Pulse Pulse Resp BP BP Pulse Ox 09/01/23 09:16 132 H 18 104/69 09/01/23 09:13 151 H 104/69 09/01/23 08:49 161 H 09/01/23 08:42 170 H 09/01/23 07:42 36.8 C 162 H 20 116/73 95 09/01/23 07:38 09/01/23 05:55 109 H 09/01/23 02:57 36.7 C 95 H 20 103/68 95 O2 Del Method 09/01/23 09:16 09/01/23 09:13 09/01/23 08:49 09/01/23 08:42 09/01/23 07:42 Room Air 09/01/23 07:38 Room Air 09/01/23 05:55 09/01/23 02:57 Room Air PG Care Time/CCT Total # of Minutes Spent Total Time Spent with Patient: Total time spent is greater than 50% in coordination of care (as documented) at patient's floor/unit and/or counseling patient: Coding Level of Care Code 31979 SUB INP/OBS CARE 2/35MIN Diagnoses Atrial fibrillation with rapid ventricular response I48.91 Fracture of left inferior pubic ramus S32.592A Closed left humeral fracture S42.292A Encounter type: initial encounter Fracture alignment: displaced Fracture morphology: other fracture Humerus Location: proximal Anterior subluxation of shoulder S43.012A Encounter type: initial encounter Laterality: left Hyperlipidemia E78.5 GERD (gastroesophageal reflux disease) K21.9 Diabetes E11.9 Age-related osteoporosis with current pathological fracture M80.00XA (3) Closed left humeral fracture Encounter type: initial encounter Fracture alignment: displaced Fracture morphology: other fracture Humerus Location: proximal Qualified Code(s): S42.292A - Other displaced fracture of upper end of left humerus, initial encounter for closed fracture (4) Anterior subluxation of shoulder Encounter type: initial encounter Laterality: left Qualified Code(s): S43.012A - Anterior subluxation of left humerus, initial encounter
[2023-09-01] MEDS: METOPROLOL SUCC 50MG EXT REL TAB PO SCH (12:57)
[2023-09-01] MEDS: DIGOXIN 250 MCG in SYRINGE 9 ML IV STA (13:51)
[2023-09-01] MEDS: DIGOXIN 0.25 MG TAB PO SCH (16:09)
--- NOTE | 2023-09-01 16:42 | Cardiology Consultation ---
Date of Consultation September 01, 2023 Assessment & Plan (1) Atrial fibrillation with rapid ventricular response: (2) Murmur: Plan ASSESSMENT/PLAN: 1. Atrial fibrillation: Likely permanent but details not known. Asymptomatic but heart rate more elevated at times while here. May be due to pain from her fractures. She has received digoxin from the primary hospitalist service in addition to beta-chaim and diltiazem. Mildly hypotensive today. Perhaps as more time elapses from her fractures, may be able to discontinue digoxin and use home doses of beta-chaim and calcium channel chaim. For now, can continue current regimen. Monitor digoxin level periodically. Continue anticoagulation for stroke risk reduction. Her weight is borderline above cutoff for increased dose of Eliquis. She chronically takes 2.5 mg twice daily and details not known. If her weight remains as is, would consider increasing Eliquis to 5 mg twice daily. 2. Murmur: Suspect aortic valve stenosis/sclerosis. Will order echo. 3. Disposition: Cardiology will continue to follow. Please call with questions or concerns. Echo likely tomorrow. When discharged, she should follow-up with her primary residential construction instructor within 1 to 2 weeks. Patient care communicated with primary hospitalist, Dr. Miller. Thank you for allowing me to participate in the care of your patient. Please call for any other questions or concerns. Sincerely, Miguel Bro M.D. History of Present Illness Reason for Consultation: Atrial fibrillation Requesting Physician: Shayy Miller MD Attending Physician: Shayy Miller MD History of Present Illness Ms. Burden is a very pleasant 88-year-old female with a history significant for permanent atrial fibrillation, dyslipidemia, type 2 diabetes and GERD. Her primary residential construction instructor is Dr. Luna in [place]. She was admitted on 08/30/2023 after falling and fracturing her left inferior pubic ramus and left humerus. She was initially significantly tachycardic, heart rate improved only to become more significantly tachycardic, especially this morning with heart rates in the 150s to 160s. She states that she has been compliant with her home dose of diltiazem 240 mg daily and metoprolol succinate 50 mg daily. She denies palpitations, chest pain, shortness of breath, syncope, near syncope, or worsening edema. She has occasional edema if she is on her feet for long periods of time. She has some discomfort from her fractures, but not significantly painful at this moment. Review of systems: As above. Review of systems otherwise negative/unremarkable. Family history: Brother had OK in his 50s and diabetes. Social history: She denies tobacco, alcohol, or drug abuse. She lives alone. No children. She lives in [place]. Her grand niece was present at the bedside and her nephew's listened and via speaker phone. Allergies Allergy/AdvReac Type Severity Reaction Status Date / Time No Known Allergies Allergy Unverified 08/30/23 16:14 Home Medications Medication Instructions Recorded Confirmed Type apixaban 2.5 mg tablet (Eliquis) 2.5 mg PO BID 08/30/23 08/30/23 History atorvastatin 10 mg tablet 10 mg PO DAILY 08/30/23 08/30/23 History diltiazem HCl 240 mg 240 mg PO DAILY 08/30/23 08/30/23 History capsule,extended release 24 hr, controlled (DILT-XR) metoprolol succinate 50 mg 50 mg PO DAILY 08/30/23 08/30/23 History tablet,extended release 24 hr omeprazole 20 mg capsule,delayed 20 mg PO DAILYBB 08/30/23 08/30/23 History release semaglutide 7 mg tablet (Rybelsus) 7 mg PO DAILY 08/30/23 08/30/23 History Patient History Medical History Atrial fibrillation Atrial flutter Hyperlipidemia GERD (gastroesophageal reflux disease) Diabetes Surgical History H/O: hysterectomy Social History Smoking Status: Never smoker Hx Alcohol Use: No Hx Substance Use: No Preferred Language: Spanish Communication Ability: Effective Hearing Ability: Normal 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 Alert and oriented. HEENT: Anicteric sclera. Neck: No JVD. Cardiac: No ventricular heave. Irregularly irregular. Normal heart rate. Normal S1-S2. 2/6 mid peaking systolic ejection murmur. Pulmonary: Clear to auscultation bilaterally without wheezes, rales, or rhonchi. Abdomen: Soft, nontender, nondistended, with normoactive bowel sounds. No bruits noted. Extremities: 2+ radial pulses bilaterally. 2+ posterior tibialis pulses bilaterally. Trace bilateral lower extremity edema. No cyanosis. Psychiatric: Affect appears appropriate. Results & Data Vital Signs (Past 12 Hours) Vital Signs Temp Pulse Pulse Resp BP BP BP 09/01/23 16:09 90 09/01/23 15:52 36.5 C 69 20 94/61 L 09/01/23 14:04 82 09/01/23 14:01 92 H 09/01/23 13:51 106 H 09/01/23 12:51 120 H 95/61 L 09/01/23 11:54 36.5 C 99 H 16 95/65 L 09/01/23 09:16 132 H 18 104/69 09/01/23 09:13 151 H 104/69 09/01/23 08:49 161 H 09/01/23 08:42 170 H 09/01/23 07:45 193 H 09/01/23 07:42 36.8 C 162 H 20 116/73 09/01/23 07:38 09/01/23 05:55 109 H Pulse Ox O2 Del Method 09/01/23 16:09 09/01/23 15:52 100 Room Air 09/01/23 14:04 09/01/23 14:01 09/01/23 13:51 09/01/23 12:51 09/01/23 11:54 95 Room Air 09/01/23 09:16 09/01/23 09:13 09/01/23 08:49 09/01/23 08:42 09/01/23 07:45 09/01/23 07:42 95 Room Air 09/01/23 07:38 Room Air 09/01/23 05:55 Laboratory Results - last 24 hr 08/31/23 08/31/23 09/01/23 16:55 19:43 06:02 WBC 8.64 RBC 3.31 L Hgb 10.0 L Hct 30.3 L MCV 91.5 MCH 30.2 MCHC 33.0 RDW Std Deviation 42.1 RDW Coeff of Joshua 12.8 Plt Count 136 MPV 12.2 Sodium 138 Potassium 3.9 Chloride 106 Carbon Dioxide 23 Anion Gap 9 BUN 22 Creatinine 1.10 Est Cr Clr Drug Dosing 34.4 Est GFR ( Amer) 52.6 Est GFR (Non-Af Amer) 45.4 BUN/Creatinine Ratio 20.0 Glucose 178 H POC Glucose 216 H 214 H Calcium 8.7 Magnesium 1.8 Total Bilirubin 0.9 AST 21 ALT 13 Alkaline Phosphatase 67 Total Protein 6.1 Albumin 3.7 Globulin 2.4 L Albumin/Globulin Ratio 1.5 09/01/23 09/01/23 08:10 12:04 WBC RBC Hgb Hct MCV MCH MCHC RDW Std Deviation RDW Coeff of Joshua Plt Count MPV Sodium Potassium Chloride Carbon Dioxide Anion Gap BUN Creatinine Est Cr Clr Drug Dosing Est GFR ( Amer) Est GFR (Non-Af Amer) BUN/Creatinine Ratio Glucose POC Glucose 206 H 232 H Calcium Magnesium Total Bilirubin AST ALT Alkaline Phosphatase Total Protein Albumin Globulin Albumin/Globulin Ratio Laboratory Results Laboratory Results - last 24 hr 08/31/23 08/31/23 09/01/23 16:55 19:43 06:02 WBC 8.64 RBC 3.31 L Hgb 10.0 L Hct 30.3 L MCV 91.5 MCH 30.2 MCHC 33.0 RDW Std Deviation 42.1 RDW Coeff of Joshua 12.8 Plt Count 136 MPV 12.2 Sodium 138 Potassium 3.9 Chloride 106 Carbon Dioxide 23 Anion Gap 9 BUN 22 Creatinine 1.10 Est Cr Clr Drug Dosing 34.4 Est GFR ( Amer) 52.6 Est GFR (Non-Af Amer) 45.4 BUN/Creatinine Ratio 20.0 Glucose 178 H POC Glucose 216 H 214 H Calcium 8.7 Magnesium 1.8 Total Bilirubin 0.9 AST 21 ALT 13 Alkaline Phosphatase 67 Total Protein 6.1 Albumin 3.7 Globulin 2.4 L Albumin/Globulin Ratio 1.5 09/01/23 09/01/23 08:10 12:04 WBC RBC Hgb Hct MCV MCH MCHC RDW Std Deviation RDW Coeff of Joshua Plt Count MPV Sodium Potassium Chloride Carbon Dioxide Anion Gap BUN Creatinine Est Cr Clr Drug Dosing Est GFR ( Amer) Est GFR (Non-Af Amer) BUN/Creatinine Ratio Glucose POC Glucose 206 H 232 H Calcium Magnesium Total Bilirubin AST ALT Alkaline Phosphatase Total Protein Albumin Globulin Albumin/Globulin Ratio Diagnostic Findings Telemetry personally reviewed: Atrial fibrillation with episodes of rapid ventricular response, especially this morning. Labs reviewed from 09/01/2023 notable for normal transaminase levels, stable renal function, normal potassium, mild but stable anemia. TSH normal on 08/30/2023. ECG personally reviewed for 824 1403: A-fib 107 bpm. Nonspecific T wave abnormality. History and physical report reviewed. Orthopedic consultation from 08/31/2023 reviewed. Medications Administered Current Inpatient Medications Acetaminophen (Acetaminophen 500 Mg Tab) 1,000 mg PO Q8H PRN PRN Reason: Pain or Fever Stop: 09/29/23 22:49 Last Admin: 09/01/23 14:27 Dose: 1,000 mg Apixaban (Apixaban 2.5 Mg Tab) 2.5 mg PO BID JOSE Stop: 09/30/23 20:59 Last Admin: 09/01/23 07:45 Dose: 2.5 mg Atorvastatin Calcium (Atorvastatin 10 Mg Tab) 10 mg PO DAILY JOSE Stop: 09/30/23 08:59 Last Admin: 09/01/23 07:45 Dose: 10 mg Dextrose (Dextrose 50% 50 Ml Syringe) 25 - 50 ml IV UD PRN; Protocol PRN Reason: Hypoglycemia Protocol Stop: 09/29/23 19:35 Digoxin (Digoxin 0.25 Mg Tab) 0.25 mg PO DAILY@1600 JOSE Stop: 10/01/23 15:59 Last Admin: 09/01/23 16:09 Dose: 0.25 mg Diltiazem HCl (Diltiazem Hcl 240 Mg Capcr) 240 mg PO DAILY JOSE Stop: 09/30/23 08:59 Last Admin: 09/01/23 07:45 Dose: 240 mg Glucagon (Glucagon For Inj 1 Mg Vial) 1 mg SQ UD PRN; Protocol PRN Reason: Hypoglycemia Protocol Stop: 09/29/23 19:35 Glucose (Glucose 40% Gel 15 Gm Tube) 15 - 30 gm PO UD PRN; Protocol PRN Reason: Hypoglycemia Protocol Stop: 09/29/23 19:35 Glucose (Glucose 10 Tab/Tube) 4 - 8 tab PO UD PRN; Protocol PRN Reason: Hypoglycemia Treatment Stop: 09/29/23 19:35 Insulin Aspart (Insulin Aspart Per Unit Charge) 0 units SC ACHS [facility] Stop: 09/29/23 20:59 Last Admin: 09/01/23 12:48 Dose: 3 units Metoprolol Succinate (Metoprolol Succ 50mg Ext Rel Tab) [facility] Stop: 10/02/23 08:59 Metoprolol Tartrate (Metoprolol Tartrate 1 Mg/Ml Vial) 5 mg IV Q4H PRN PRN Reason: Tachycardia HR > 140 Stop: 09/29/23 23:13 Last Admin: 09/01/23 08:49 Dose: 5 mg Miscellaneous (Order Awaiting Action: Semaglutide) 1 each N/A QS [facility] Stop: 09/30/23 00:00 Last Admin: 09/01/23 09:55 Dose: Not Given Miscellaneous (Carbohydrates For Hypoglycemia ) 15 - 30 gm PO UD PRN PRN Reason: Hypoglycemia Protocol Stop: 09/29/23 19:35 Pantoprazole Sodium ([facility]antoprazole 40 Mg Tab) [facility] Protocol Stop: 09/30/23 06:29 Last Admin: 09/01/23 05:09 Dose: 40 mg Vitamin D (Cholecalciferol 25 Mcg (1000 Units) Tab) 25 mcg PO [facility] Stop: 10/01/23 08:59 Last Admin: 09/01/23 07:44 Dose: 25 mcg PG Care Time/CCT Total # of Minutes Spent Total Time Spent with Patient: Total time spent is greater than 50% in coordination of care (as documented) at patient's floor/unit and/or counseling patient: Coding Level of Care Code 27698 INT INP/OBS CARE 3/75MIN Diagnoses Atrial fibrillation with rapid ventricular response I48.91 Murmur R01.1
[2023-09-02 06:29] LABS: Hematocrit (blood only) 31.8 % (37.0-47.0); Hemoglobin 10.3 g/dl (12.0-16.0); Mean Corpuscular Hemoglobin 29.8 pg (25.0-34.0); Mean Corpuscular Hgb Conc 32.4 g/dL (32.0-36.0); Mean Corpuscular Volume 91.9 fL (80.0-100.0); Mean Platelet Volume 12.1 fL (9.4-12.4); Platelet Count 136 K/uL (130-400); RDW Coefficient of Variation 12.6 % (11.5-14.5); RDW Standard Deviation 41.8 fL (36.4-46.3); Red Blood Count 3.46 M/uL (4.20-5.40); White Blood Count 7.33 K/ul (4.8-10.8)
[2023-09-02 06:51] LABS: Albumin Globulin Ratio 1.3 (0.9-2); Albumin Level 3.6 gm/dl (3.4-5.0); BUN Creatinine Ratio 19.6 (10-20); Calcium 8.8 mg/dl (8.6-10.3); Creatinine Clr Calc Pharmacy 35.3 ml/min; Est GFR (African American) 54.4 ml/min; Globulin 2.8 gm/dl (2.5-4.0); Magnesium 1.7 mg/dl (1.7-2.4); Potassium 3.9 mmol/L (3.5-5.1); Total Protein 6.4 gm/dl (6.0-8.3)
[2023-09-02] MEDS: METOPROLOL SUCC 50MG EXT REL TAB PO SCH (08:52)
--- NOTE | 2023-09-02 16:00 | Orthopedic Consultation ---
Date of Consultation September 02, 2023 Assessment & Plan (1) Closed fracture of left proximal humerus: I had a very long discussion with her regarding her injury and potential treatment options. Options include nonoperative management, initial nonoperative management with subsequent delayed conversion to reverse total shoulder arthroplasty, or immediate surgical management with reverse total shoulder arthroplasty. She is minimally active and this is her nondominant arm, and I think she would have reasonable function of that left shoulder with nonoperative management. We discussed expected long-term function of this option. I advised her that if we tried initial nonoperative management and she was unhappy with her function, we could always convert to reverse total shoulder arthroplasty on a delayed basis. Initial treatment with reverse total shoulder arthroplasty is a reasonable option and would likely lead to better, more predictable motion and function, but does carry some risk. This is a large surgical procedure done without tourniquet control. She is on Eliquis for atrial fibrillation. To proceed with surgery, we would have to get clearance from cardiology to stop her Eliquis for 3 days prior to surgery. This would increase her risk of stroke while she is off anticoagulation. This surgery is also performed in the beachchair position, also increasing her risk of stroke. After an extensive discussion of the pros and cons of each of these approaches, she elected for nonoperative management for now. Continue her sling for comfort and support. No weightbearing through the left arm. Follow-up with me in orthopedic surgery clinic in 1 to 2 weeks. Please call [facility] at [phone] to make an appointment. History of Present Illness Reason for Consultation: Left proximal humerus fracture Attending Physician: Shayy Miller MD History of Present Illness I was asked to see Ms. Burden by my partner, Dr. Kerns, for her left proximal humerus fracture. She is an 88-year-old [id number] female who injured her left shoulder during a ground-level fall on 08/30/23. She really cannot say how she fell, but it does not sound like she tripped. She denies loss of consciousness. She does recall the entire fall. She fell directly onto her left side and had immediate pain in her left shoulder. She does have atrial fibrillation with rapid ventricular response, and is on chronic Eliquis for this. Cardiology is actually recommending increase in her Eliquis dosing. She is scheduled for an echocardiogram tomorrow. She is resting comfortably in her bed. She denies significant pain in her left shoulder. She does endorse some mild discomfort in the shoulder with movement, but not a lot of pain at rest. She reports she is minimally active. She really only plays bingo. She denies any other hobbies or activities that involve significant shoulder motion or heavy lifting. Allergies Allergy/AdvReac Type Severity Reaction Status Date / Time No Known Allergies Allergy Unverified 08/30/23 16:14 Home Medications Medication Instructions Recorded Confirmed Type apixaban 2.5 mg tablet (Eliquis) 2.5 mg PO BID 08/30/23 08/30/23 History atorvastatin 10 mg tablet 10 mg PO DAILY 08/30/23 08/30/23 History diltiazem HCl 240 mg 240 mg PO DAILY 08/30/23 08/30/23 History capsule,extended release 24 hr, controlled (DILT-XR) metoprolol succinate 50 mg 50 mg PO DAILY 08/30/23 08/30/23 History tablet,extended release 24 hr omeprazole 20 mg capsule,delayed 20 mg PO DAILYBB 08/30/23 08/30/23 History release semaglutide 7 mg tablet (Rybelsus) 7 mg PO DAILY 08/30/23 08/30/23 History Patient History Medical History Atrial fibrillation Atrial flutter Hyperlipidemia GERD (gastroesophageal reflux disease) Diabetes Surgical History H/O: hysterectomy Social History Smoking Status: Never smoker Hx Alcohol Use: No Hx Substance Use: No Preferred Language: Ivorian Communication Ability: Effective Hearing Ability: Normal Store Team Member Required: No Beliefs That Will Affect Care: None Current Living Situation: Alone current occupational status: retired Other Information That Helps Us Care for You: No Feels Safe at Home: Yes Safety Concerns: Feels Safe At This Time Assistive Devices: None Physical Exam Physical Exam: Examination of the left shoulder reveals surprisingly minimal swelling and ecchymosis. No open wounds. Motor and sensory function is intact in the median, ulnar, radial, and axillary nerve distributions. Results & Data Vital Signs (Past 12 Hours) Vital Signs Temp Pulse Pulse Resp BP Pulse Ox O2 Del Method 09/02/23 14:00 121 H 09/02/23 11:48 106 H 09/02/23 11:44 18 09/02/23 11:34 36.6 C 84 104/68 96 Room Air 09/02/23 10:53 192 H 09/02/23 08:53 188 H 09/02/23 08:50 190 H 09/02/23 07:59 36.5 C 106 H 18 125/87 96 Room Air 09/02/23 07:10 Room Air 09/02/23 05:57 115 H Diagnostic Findings X-rays and CT scan of the left shoulder were reviewed. They show a relatively mildly comminuted but moderately displaced impacted left proximal humerus fracture. No articular surface head-splitting component to the fracture. (1) Closed fracture of left proximal humerus Encounter type: initial encounter Fracture morphology: other fracture Fracture alignment: displaced Qualified Code(s): S42.292A - Other displaced fracture of upper end of left humerus, initial encounter for closed fracture
--- NOTE | 2023-09-02 16:03 | Hospitalist Progress Note ---
Date of Service September 02, 2023 Assessment & Plan (1) Atrial fibrillation with rapid ventricular response: Plan: Known diagnosis Suspected due to missing her usual medications - unknown if she has paroxysmal or permanent atrial fibrillation on Cardizem 240 mg , metoprolol 50 mg continue eliquis continue Metoprolol cardiology input appreciated monitor on tele started on Digoxin, level 1.1 HR remains elevated (2) Fracture of left inferior pubic ramus: Plan: continue Eliquis WBAT ortho input appreciated rehab (3) Closed left humeral fracture: Plan: Arm sling pain control conservative treatment , will be evaluated by shoulder ortho (4) Anterior subluxation of shoulder: (5) Hyperlipidemia: Plan: Continue atorvastatin (6) GERD (gastroesophageal reflux disease): Plan: Switch omeprazole for pantoprazole per hospital formuilary (7) Diabetes: Plan: HbA1C with AM labs Continue Gloriafaheem Novolog: --Goal BSG Range: Low 110 mg/dL, High 140 mg/dL --Correction Factor: 45 mg/dL/unit No carb coverage --BSGs ACHS if eating, q6h if npo (8) Age-related osteoporosis with current pathological fracture: Plan: conservative treatment ortho input appreciated pain control PT (9) Anemia: Plan: obtain iron study b12, folate, monitor CBC Plan VTE Prophylaxis - deferred pending repeat serial hemoglobin Diet - T2DM Disposition - admit to med/tele Admission and Anticipated Discharge Date Admission Date: August 30, 2023 Subjective comfortable , denies pain, HR is elevated Review of Systems Review of Systems: pain in left arm, pelvis , denies CP, SOB, fever, chills Physical Exam Physical Exam: head atraumatic neck supple chest CTA b/l heart S1S2 tachycardic abdomen soft , nt, nd extremities left arm in sling neuro AAO times 3 Results & Data Results & Data Vital Signs (Past 12 Hours) Vital Signs Temp Pulse Pulse Resp BP Pulse Ox O2 Del Method 09/02/23 14:00 121 H 09/02/23 11:48 106 H 09/02/23 11:44 18 09/02/23 11:34 36.6 C 84 104/68 96 Room Air 09/02/23 10:53 192 H 09/02/23 08:53 188 H 09/02/23 08:50 190 H 09/02/23 07:59 36.5 C 106 H 18 125/87 96 Room Air 09/02/23 07:10 Room Air 09/02/23 05:57 115 H PG Care Time/CCT Total # of Minutes Spent Total Time Spent with Patient: Total time spent is greater than 50% in coordination of care (as documented) at patient's floor/unit and/or counseling patient: Coding Level of Care Code 78005 SUB INP/OBS CARE 2/35MIN Diagnoses Atrial fibrillation with rapid ventricular response I48.91 Fracture of left inferior pubic ramus S32.592A Closed left humeral fracture S42.292A Encounter type: initial encounter Fracture alignment: displaced Fracture morphology: other fracture Humerus Location: proximal Anterior subluxation of shoulder S43.012A Encounter type: initial encounter Laterality: left Hyperlipidemia E78.5 GERD (gastroesophageal reflux disease) K21.9 Diabetes E11.9 Age-related osteoporosis with current pathological fracture M80.00XA Anemia D64.9 (3) Closed left humeral fracture Encounter type: initial encounter Fracture alignment: displaced Fracture morphology: other fracture Humerus Location: proximal Qualified Code(s): S42.292A - Other displaced fracture of upper end of left humerus, initial encounter for closed fracture (4) Anterior subluxation of shoulder Encounter type: initial encounter Laterality: left Qualified Code(s): S43.012A - Anterior subluxation of left humerus, initial encounter
--- NOTE | 2023-09-02 19:02 | Cardiology Progress Note ---
Date of Service September 02, 2023 Assessment & Plan (1) Atrial fibrillation with rapid ventricular response: (2) Murmur: Plan ASSESSMENT/PLAN: 1. Atrial fibrillation: Likely permanent but details not known. Heart rate mostly elevated. Discontinue metoprolol succinate and start metoprolol tartrate 25 mg p.o. every 6 hours. Digoxin has already been added earlier this hospital stay by hospitalist service. Monitor digoxin levels. Ideally, would like to discontinue digoxin and controlled with beta-chaim and calcium channel chaim, or at very least reduce the dose of digoxin if heart rate can be better controlled with further adjustments of her other rate controlling meds. Continue anticoagulation for stroke risk reduction. Her weight is borderline above cutoff for increased dose of Eliquis. She chronically takes 2.5 mg twice daily and details not known. If her weight remains as is, would consider increasing Eliquis to 5 mg twice daily. Unclear if there were decisions made by her primary security shift supervisor for lower dose. 2. Murmur: Suspect aortic valve stenosis/sclerosis. Echo pending. 3. Disposition: Cardiology will continue to follow. Please call with questions or concerns. When discharged, she should follow-up with her primary security shift supervisor within 1 to 2 weeks. Admission and Anticipated Discharge Date Admission Date: August 30, 2023 Subjective Patient seen earlier today. She denies chest pain, shortness of breath, palpitations, syncope, or near syncope. She was seen by orthopedics earlier today and conservative measurements were decided upon. She was alone in her hospital room. Physical Exam Physical Exam: Gen.: No acute distress. Alert and oriented. HEENT: Anicteric sclera. Neck: No JVD. Cardiac: No ventricular heave. Irregularly irregular. Mild tachycardia. Normal S1-S2. 2/6 mid peaking systolic ejection murmur. Pulmonary: Clear to auscultation bilaterally without wheezes, rales, or rhonchi. Abdomen: Soft, nontender, nondistended, with normoactive bowel sounds. No bruits noted. Extremities: 2+ radial pulses bilaterally. 2+ posterior tibialis pulses bilaterally. Trace bilateral lower extremity edema. No cyanosis. Psychiatric: Affect appears appropriate. Results & Data Vital Signs (Past 12 Hours) Vital Signs Temp Pulse Pulse Resp BP BP Pulse Ox 09/02/23 16:42 140 H 09/02/23 16:08 36.6 C 104 H 16 102/68 94 09/02/23 14:00 121 H 09/02/23 11:48 106 H 09/02/23 11:44 18 09/02/23 11:34 36.6 C 84 104/68 96 09/02/23 10:53 192 H 09/02/23 08:53 188 H 09/02/23 08:50 190 H 09/02/23 07:59 36.5 C 106 H 18 125/87 96 09/02/23 07:10 O2 Del Method 09/02/23 16:42 09/02/23 16:08 Room Air 09/02/23 14:00 09/02/23 11:48 09/02/23 11:44 09/02/23 11:34 Room Air 09/02/23 10:53 09/02/23 08:53 09/02/23 08:50 09/02/23 07:59 Room Air 09/02/23 07:10 Room Air Laboratory Results Laboratory Results - last 24 hr 09/02/23 09/02/23 09/02/23 06:08 08:16 11:59 WBC 7.33 RBC 3.46 L Hgb 10.3 L Hct 31.8 L MCV 91.9 MCH 29.8 MCHC 32.4 RDW Std Deviation 41.8 RDW Coeff of Joshua 12.6 Plt Count 136 MPV 12.1 Sodium 138 Potassium 3.9 Chloride 106 Carbon Dioxide 23 Anion Gap 9 BUN 21 Creatinine 1.07 Est Cr Clr Drug Dosing 35.3 Est GFR ( Amer) 54.4 Est GFR (Non-Af Amer) 47.0 BUN/Creatinine Ratio 19.6 Glucose 192 H POC Glucose 178 H 207 H Calcium 8.8 Magnesium 1.7 Total Bilirubin 1.0 AST 17 ALT 12 Alkaline Phosphatase 71 Total Protein 6.4 Albumin 3.6 Globulin 2.8 Albumin/Globulin Ratio 1.3 Digoxin 1.1 Digitoxin Cancelled 09/02/23 09/02/23 16:50 20:19 WBC RBC Hgb Hct MCV MCH MCHC RDW Std Deviation RDW Coeff of Joshua Plt Count MPV Sodium Potassium Chloride Carbon Dioxide Anion Gap BUN Creatinine Est Cr Clr Drug Dosing Est GFR ( Amer) Est GFR (Non-Af Amer) BUN/Creatinine Ratio Glucose POC Glucose 181 H 224 H Calcium Magnesium Total Bilirubin AST ALT Alkaline Phosphatase Total Protein Albumin Globulin Albumin/Globulin Ratio Digoxin Digitoxin Diagnostic Findings Telemetry personally reviewed: Atrial fibrillation with rapid ventricular response. Orthopedic note reviewed. Hospitalist note reviewed. Labs reviewed and notable for mild anemia. Digoxin level 1.1 but not true trough. Normal transaminase levels. Medications Administered Current Inpatient Medications Acetaminophen (Acetaminophen 500 Mg Tab) 1,000 mg PO Q8H PRN PRN Reason: Pain or Fever Stop: 09/29/23 22:49 Last Admin: 09/02/23 21:18 Dose: 1,000 mg Apixaban (Apixaban 2.5 Mg Tab) 2.5 mg PO BID JOSE Stop: 09/30/23 20:59 Last Admin: 09/02/23 20:31 Dose: 2.5 mg Atorvastatin Calcium (Atorvastatin 10 Mg Tab) 10 mg PO DAILY JOSE Stop: 09/30/23 08:59 Last Admin: 09/02/23 08:52 Dose: 10 mg Dextrose (Dextrose 50% 50 Ml Syringe) 25 - 50 ml IV UD PRN; Protocol PRN Reason: Hypoglycemia Protocol Stop: 09/29/23 19:35 Digoxin (Digoxin 0.25 Mg Tab) 0.25 mg PO DAILY@1600 [facility] Stop: 10/01/23 15:59 Last Admin: 09/02/23 16:42 Dose: 0.25 mg Diltiazem HCl (Diltiazem Hcl 240 Mg Capcr) 240 mg PO DAILY JOSE Stop: 09/30/23 08:59 Last Admin: 09/02/23 08:53 Dose: 240 mg Glucagon (Glucagon For Inj 1 Mg Vial) 1 mg SQ UD PRN; Protocol PRN Reason: Hypoglycemia Protocol Stop: 09/29/23 19:35 Glucose (Glucose 40% Gel 15 Gm Tube) 15 - 30 gm PO UD PRN; Protocol PRN Reason: Hypoglycemia Protocol Stop: 09/29/23 19:35 Glucose (Glucose 10 Tab/Tube) 4 - 8 tab PO UD PRN; Protocol PRN Reason: Hypoglycemia Treatment Stop: 09/29/23 19:35 Insulin Aspart (Insulin Aspart Per Unit Charge) 0 units SC ACHS JOSE Stop: 09/29/23 20:59 Last Admin: 09/02/23 20:31 Dose: 2 units Metoprolol Tartrate (Metoprolol Tartrate 1 Mg/Ml Vial) 5 mg IV Q4H PRN PRN Reason: Tachycardia HR > 140 Stop: 09/29/23 23:13 Last Admin: 09/01/23 08:49 Dose: 5 mg Metoprolol Tartrate (Metoprolol Tartrate 25 Mg Tab) 25 mg PO Q6H [facility] Stop: 10/02/23 19:14 Last Admin: 09/02/23 20:31 Dose: 25 mg Miscellaneous (Order Awaiting Action: Semaglutide) 1 each N/A QS [facility] Stop: 09/30/23 00:00 Last Admin: 09/02/23 08:53 Dose: Not Given Miscellaneous (Carbohydrates For Hypoglycemia ) 15 - 30 gm PO UD PRN PRN Reason: Hypoglycemia Protocol Stop: 09/29/23 19:35 Pantoprazole Sodium ([facility]ole 40 Mg Tab) [facility] Protocol Stop: 09/30/23 06:29 Last Admin: 09/02/23 06:32 Dose: 40 mg Vitamin D (Cholecalciferol 25 Mcg (1000 Units) Tab) 25 mcg PO QAM [facility] Stop: 10/01/23 08:59 Last Admin: 09/02/23 08:52 Dose: 25 mcg PG Care Time/CCT Total # of Minutes Spent Total Time Spent with Patient: Total time spent is greater than 50% in coordination of care (as documented) at patient's floor/unit and/or counseling patient: Coding Level of Care Code 30217 SUB INP/OBS CARE 3/50MIN Diagnoses Atrial fibrillation with rapid ventricular response I48.91 Murmur R01.1
[2023-09-02] MEDS: METOPROLOL TARTRATE 25 MG TAB PO SCH (20:31)
[2023-09-03 05:55] LABS: Hematocrit (blood only) 32.3 % (37.0-47.0); Hemoglobin 10.6 g/dl (12.0-16.0); Mean Corpuscular Hgb Conc 32.8 g/dL (32.0-36.0); Mean Corpuscular Volume 91.5 fL (80.0-100.0); Mean Platelet Volume 11.9 fL (9.4-12.4); Platelet Count 159 K/uL (130-400); RDW Coefficient of Variation 12.5 % (11.5-14.5); RDW Standard Deviation 41.3 fL (36.4-46.3); Red Blood Count 3.53 M/uL (4.20-5.40); White Blood Count 7.48 K/ul (4.8-10.8)
[2023-09-03 06:09] LABS: Albumin Globulin Ratio 1.3 (0.9-2); Albumin Level 3.7 gm/dl (3.4-5.0); BUN Creatinine Ratio 23.4 (10-20); Bilirubin,Total 1.3 mg/dl (0.2-1.0); Creatinine Clr Calc Pharmacy 35.3 ml/min; Est GFR (African American) 54.4 ml/min; Globulin 2.8 gm/dl (2.5-4.0); Magnesium 1.7 mg/dl (1.7-2.4); Total Protein 6.5 gm/dl (6.0-8.3)
[2023-09-03 06:35] LABS: Folate (Folic Acid),Ser orPlas 9.79 ng/ml (>5.38)
--- NOTE | 2023-09-03 08:52 | Cardiology Progress Note ---
Date of Service September 03, 2023 Assessment & Plan (1) Atrial fibrillation with rapid ventricular response: (2) Aortic stenosis: Plan ASSESSMENT/PLAN: 1. Atrial fibrillation: Likely permanent but details not known. Heart rate mostly elevated but improved with increased metoprolol on 09/02/2023 evening. Will increase metoprolol to 50 mg every 6 hours and discontinue digoxin. Digoxin can be resumed if necessary but heart rate seems to increase with activity and beta-chaim and diltiazem should offer better control in such situations. If need be, diltiazem can be increased as well. On discharge, metoprolol can be condensed to once daily dosing with metoprolol succinate, or twice daily dosing of tartrate. Continue anticoagulation for stroke risk reduction. Her weight is borderline above cutoff for increased dose of Eliquis. She chronically takes 2.5 mg twice daily and details not known. If her weight remains as is, would consider increasing Eliquis to 5 mg twice daily. Unclear if there were decisions made by her primary patching machine operator for lower dose. 2. Aortic stenosis: Moderate. Recommend outpatient surveillance with her primary patching machine operator. 3. Disposition: I will be away from the hospital after this evening. Please call on-call patching machine operator for any questions or concerns. Cardiology will sign off at this time. She should follow-up with her primary patching machine operator upon discharge. Patient care communicated with primary hospitalist, Dr. Miller. Admission and Anticipated Discharge Date Admission Date: August 30, 2023 Subjective Patient seen this morning. She denies chest pain, shortness of breath, syncope, near syncope, palpitations, or edema. Family was present at the bedside. Physical Exam Physical Exam: Gen.: No acute distress. Alert and oriented. HEENT: Anicteric sclera. Neck: No JVD. Cardiac: No ventricular heave. Irregularly irregular. Normal S1-S2. 2/6 mid peaking systolic ejection murmur. Pulmonary: Clear to auscultation bilaterally without wheezes, rales, or rhonchi. Abdomen: Soft, nontender, nondistended, with normoactive bowel sounds. No bruits noted. Extremities: 2+ radial pulses bilaterally. 2+ posterior tibialis pulses bilaterally. No significant pitting edema. No cyanosis. Psychiatric: Affect appears appropriate. Results & Data Vital Signs (Past 12 Hours) Vital Signs Temp Pulse Pulse Resp BP BP Pulse Ox 09/03/23 08:40 93 H 09/03/23 07:58 36.6 C 101 H 18 125/90 94 09/03/23 04:04 36.7 C 65 17 122/63 95 09/02/23 22:49 36.4 C L 58 L 18 134/79 96 O2 Del Method 09/03/23 08:40 09/03/23 07:58 Room Air 09/03/23 04:04 Room Air 09/02/23 22:49 Room Air Laboratory Results Laboratory Results - last 24 hr 09/02/23 09/02/23 09/02/23 06:08 11:59 16:50 WBC RBC Hgb Hct MCV MCH MCHC RDW Std Deviation RDW Coeff of Joshua Plt Count MPV Sodium Potassium Chloride Carbon Dioxide Anion Gap BUN Creatinine Est Cr Clr Drug Dosing Est GFR ( Amer) Est GFR (Non-Af Amer) BUN/Creatinine Ratio Glucose POC Glucose 207 H 181 H Calcium Magnesium Iron Unsaturated IBC Total Bilirubin AST ALT Alkaline Phosphatase Total Protein Albumin Globulin Albumin/Globulin Ratio Vitamin B12 Folate Digoxin 1.1 Digitoxin Cancelled 09/02/23 09/03/23 09/03/23 20:19 05:35 08:12 WBC 7.48 RBC 3.53 L Hgb 10.6 L Hct 32.3 L MCV 91.5 MCH 30.0 MCHC 32.8 RDW Std Deviation 41.3 RDW Coeff of Joshua 12.5 Plt Count 159 MPV 11.9 Sodium 137 Potassium 4.0 Chloride 105 Carbon Dioxide 22 Anion Gap 10 BUN 25 H Creatinine 1.07 Est Cr Clr Drug Dosing 35.3 Est GFR ( Amer) 54.4 Est GFR (Non-Af Amer) 47.0 BUN/Creatinine Ratio 23.4 H Glucose 215 H POC Glucose 224 H 203 H Calcium 9.0 Magnesium 1.7 Iron 25 L Unsaturated IBC 278 Total Bilirubin 1.3 H AST 16 ALT 12 Alkaline Phosphatase 71 Total Protein 6.5 Albumin 3.7 Globulin 2.8 Albumin/Globulin Ratio 1.3 Vitamin B12 352 Folate 9.79 Digoxin Digitoxin Pending Diagnostic Findings Labs reviewed from 09/03/2023 demonstrated stable renal function, mild anemia. Telemetry personally reviewed: Atrial fibrillation with improved heart rate. During daylight hours, heart rate became more tachycardic, but improved from the previous days. ECHO 09/03/23: 1. Normal left ventricular size and systolic function. EF 60-65%. No regional wall motion abnormalities. Moderate concentric left ventricular hypertrophy. 2. Severe left atrial dilation. 3. Moderate aortic stenosis. 4. Moderate mitral annular calcification. Mild mitral regurgitation. 5. Top normal right ventricular systolic pressure; RVSP 37 mmHg. 6. Technically difficult study, enhanced with IV Definity. 7. No prior study available for comparison. Medications Administered Current Inpatient Medications Acetaminophen (Acetaminophen 500 Mg Tab) 1,000 mg PO Q8H PRN PRN Reason: Pain or Fever Stop: 09/29/23 22:49 Last Admin: 09/03/23 04:49 Dose: 1,000 mg Apixaban (Apixaban 2.5 Mg Tab) 2.5 mg PO BID JOSE Stop: 09/30/23 20:59 Last Admin: 09/02/23 20:31 Dose: 2.5 mg Atorvastatin Calcium (Atorvastatin 10 Mg Tab) 10 mg PO DAILY JOSE Stop: 09/30/23 08:59 Last Admin: 09/02/23 08:52 Dose: 10 mg Dextrose (Dextrose 50% 50 Ml Syringe) 25 - 50 ml IV UD PRN; Protocol PRN Reason: Hypoglycemia Protocol Stop: 09/29/23 19:35 Digoxin (Digoxin 0.25 Mg Tab) 0.25 mg PO DAILY@1600 [facility] Stop: 10/01/23 15:59 Last Admin: 09/02/23 16:42 Dose: 0.25 mg Diltiazem HCl (Diltiazem Hcl 240 Mg Capcr) 240 mg PO DAILY JOSE Stop: 09/30/23 08:59 Last Admin: 09/02/23 08:53 Dose: 240 mg Glucagon (Glucagon For Inj 1 Mg Vial) 1 mg SQ UD PRN; Protocol PRN Reason: Hypoglycemia Protocol Stop: 09/29/23 19:35 Glucose (Glucose 40% Gel 15 Gm Tube) 15 - 30 gm PO UD PRN; Protocol PRN Reason: Hypoglycemia Protocol Stop: 09/29/23 19:35 Glucose (Glucose 10 Tab/Tube) 4 - 8 tab PO UD PRN; Protocol PRN Reason: Hypoglycemia Treatment Stop: 09/29/23 19:35 Insulin Aspart (Insulin Aspart Per Unit Charge) 0 units SC ACHS JOSE Stop: 09/29/23 20:59 Last Admin: 09/02/23 20:31 Dose: 2 units Metoprolol Tartrate (Metoprolol Tartrate 1 Mg/Ml Vial) 5 mg IV Q4H PRN PRN Reason: Tachycardia HR > 140 Stop: 09/29/23 23:13 Last Admin: 09/01/23 08:49 Dose: 5 mg Metoprolol Tartrate (Metoprolol Tartrate 25 Mg Tab) 25 mg PO Q6H [facility] Stop: 10/02/23 19:14 Last Admin: 09/03/23 01:25 Dose: 25 mg Miscellaneous (Order Awaiting Action: Semaglutide) 1 each N/A QS [facility] Stop: 09/30/23 00:00 Last Admin: 09/02/23 21:53 Dose: Not Given Miscellaneous (Carbohydrates For Hypoglycemia ) 15 - 30 gm PO UD PRN PRN Reason: Hypoglycemia Protocol Stop: 09/29/23 19:35 Pantoprazole Sodium (Pantoprazole 40 Mg Tab) [facility] Protocol Stop: 09/30/23 06:29 Last Admin: 09/03/23 04:49 Dose: 40 mg Vitamin D (Cholecalciferol 25 Mcg (1000 Units) Tab) 25 mcg PO QAM [facility] Stop: 10/01/23 08:59 Last Admin: 09/02/23 08:52 Dose: 25 mcg PG Care Time/CCT Total # of Minutes Spent Total Time Spent with Patient: Total time spent is greater than 50% in coordination of care (as documented) at patient's floor/unit and/or counseling patient: Coding Level of Care Code 27234 SUB INP/OBS CARE 3/50MIN Diagnoses Atrial fibrillation with rapid ventricular response I48.91 Aortic stenosis I35.0
--- NOTE | 2023-09-03 14:17 | Hospitalist Progress Note ---
Date of Service September 03, 2023 Assessment & Plan (1) Atrial fibrillation with rapid ventricular response: Plan: Known diagnosis Suspected due to missing her usual medications - unknown if she has paroxysmal or permanent atrial fibrillation on Cardizem 240 mg , metoprolol 25 mg Q6 continue eliquis continue Metoprolol cardiology input appreciated monitor on tele started on Digoxin, level 1.1 (2) Fracture of left inferior pubic ramus: Plan: continue Eliquis WBAT ortho input appreciated rehab (3) Closed left humeral fracture: Plan: Arm sling pain control conservative treatment , patient wants conservative approach, no surgery (4) Anterior subluxation of shoulder: (5) Hyperlipidemia: Plan: Continue atorvastatin (6) GERD (gastroesophageal reflux disease): Plan: Switch omeprazole for pantoprazole per hospital formuilary (7) Diabetes: Plan: HbA1C with AM labs Continue Rybelsus Novolog: --Goal BSG Range: Low 110 mg/dL, High 140 mg/dL --Correction Factor: 45 mg/dL/unit No carb coverage --BSGs ACHS if eating, q6h if npo (8) Age-related osteoporosis with current pathological fracture: Plan: conservative treatment ortho input appreciated pain control PT (9) Anemia: Plan: iron deficiency b12, folate, monitor CBC venofer monitor CBC Plan VTE Prophylaxis - deferred pending repeat serial hemoglobin Diet - T2DM Disposition - admit to med/tele Admission and Anticipated Discharge Date Admission Date: August 30, 2023 Subjective reports feeling better, no shoulder surgery, HR is better controlled, insurance denied rehab Review of Systems Review of Systems: pain in left arm, pelvis , denies CP, SOB, fever, chills , HR is better Physical Exam Physical Exam: head atraumatic neck supple chest CTA b/l heart irregularly irregular abdomen soft , nt, nd extremities left arm in sling neuro AAO times 3 Results & Data Results & Data Vital Signs (Past 12 Hours) Vital Signs Temp Pulse Pulse Resp BP BP Pulse Ox 09/03/23 11:21 36.3 C L 96 H 20 109/77 97 09/03/23 08:40 93 H 09/03/23 07:58 36.6 C 101 H 18 125/90 94 09/03/23 04:04 36.7 C 65 17 122/63 95 O2 Del Method 09/03/23 11:21 Room Air 09/03/23 08:40 09/03/23 07:58 Room Air 09/03/23 04:04 Room Air Laboratory Results Abnormal lab results 09/02/23 09/02/23 09/03/23 Range/Units 16:50 20:19 05:35 RBC 3.53 L (4.20-5.40) M/uL Hgb 10.6 L (12.0-16.0) g/dl Hct 32.3 L (37.0-47.0) % BUN 25 H (6-23) mg/dl BUN/Creatinine Ratio 23.4 H (10-20) Glucose 215 H (70-99(Fasting)) mg/dl POC Glucose 181 H 224 H (70-99) mg/dl Iron 25 L (35-150) mcg/dl Total Bilirubin 1.3 H (0.2-1.0) mg/dl 09/03/23 09/03/23 Range/Units 08:12 12:13 RBC (4.20-5.40) M/uL Hgb (12.0-16.0) g/dl Hct (37.0-47.0) % BUN (6-23) mg/dl BUN/Creatinine Ratio (10-20) Glucose (70-99(Fasting)) mg/dl POC Glucose 203 H 216 H (70-99) mg/dl Iron (35-150) mcg/dl Total Bilirubin (0.2-1.0) mg/dl PG Care Time/CCT Total # of Minutes Spent Total Time Spent with Patient: Total time spent is greater than 50% in coordination of care (as documented) at patient's floor/unit and/or counseling patient: Coding Level of Care Code 28885 SUB INP/OBS CARE 2/35MIN Diagnoses Atrial fibrillation with rapid ventricular response I48.91 Fracture of left inferior pubic ramus S32.592A Closed left humeral fracture S42.292A Encounter type: initial encounter Fracture alignment: displaced Fracture morphology: other fracture Humerus Location: proximal Anterior subluxation of shoulder S43.012A Encounter type: initial encounter Laterality: left Hyperlipidemia E78.5 GERD (gastroesophageal reflux disease) K21.9 Diabetes E11.9 Age-related osteoporosis with current pathological fracture M80.00XA Anemia D64.9 (3) Closed left humeral fracture Encounter type: initial encounter Fracture alignment: displaced Fracture morphology: other fracture Humerus Location: proximal Qualified Code(s): S42.292A - Other displaced fracture of upper end of left humerus, initial encounter for closed fracture (4) Anterior subluxation of shoulder Encounter type: initial encounter Laterality: left Qualified Code(s): S43.012A - Anterior subluxation of left humerus, initial encounter
--- NOTE | 2023-09-03 14:40 | XCELERA ---
[id number] [id number]
[2023-09-03] MEDS: METOPROLOL TARTRATE 50 MG TAB PO SCH (15:55)
[2023-09-04 07:49] LABS: Hematocrit (blood only) 32.9 % (37.0-47.0); Hemoglobin 11.1 g/dl (12.0-16.0); Mean Corpuscular Hemoglobin 30.4 pg (25.0-34.0); Mean Corpuscular Hgb Conc 33.7 g/dL (32.0-36.0); Mean Corpuscular Volume 90.1 fL (80.0-100.0); Platelet Count 212 K/uL (130-400); RDW Coefficient of Variation 12.6 % (11.5-14.5); RDW Standard Deviation 40.9 fL (36.4-46.3); Red Blood Count 3.65 M/uL (4.20-5.40); White Blood Count 7.92 K/ul (4.8-10.8)
--- NOTE | 2023-09-04 12:17 | Hospitalist Progress Note ---
Date of Service September 04, 2023 Assessment & Plan (1) Atrial fibrillation with rapid ventricular response: Plan: much better controlled rate Suspected due to missing her usual medications - unknown if she has paroxysmal or permanent atrial fibrillation on Cardizem 240 mg , metoprolol 25 mg Q6 continue eliquis continue Metoprolol cardiology input appreciated monitor on tele started on Digoxin, level 1.1 ECHO EF 60-65 %, severely dilated left atrium , moderate (2) Fracture of left inferior pubic ramus: Plan: continue Eliquis WBAT ortho input appreciated rehab (3) Closed left humeral fracture: Plan: Arm sling pain control conservative treatment , patient wants conservative approach, no surgery (4) Anterior subluxation of shoulder: (5) Hyperlipidemia: Plan: Continue atorvastatin (6) GERD (gastroesophageal reflux disease): Plan: Switch omeprazole for pantoprazole per hospital formuilary (7) Diabetes: Plan: HbA1C with AM labs Continue Rybelsus Novolog: --Goal BSG Range: Low 110 mg/dL, High 140 mg/dL --Correction Factor: 45 mg/dL/unit No carb coverage --BSGs ACHS if eating, q6h if npo (8) Age-related osteoporosis with current pathological fracture: Plan: conservative treatment ortho input appreciated pain control PT (9) Anemia: Plan: iron deficiency b12, folate, monitor CBC venofer monitor CBC Plan VTE Prophylaxis - deferred pending repeat serial hemoglobin Diet - T2DM Disposition - admit to med/tele Admission and Anticipated Discharge Date Admission Date: August 30, 2023 Subjective reports feeling better, no shoulder surgery, HR is better controlled, insurance denied rehab , SNF on Wednesday Review of Systems Review of Systems: pain in left arm, pelvis , denies CP, SOB, fever, chills , HR is better Physical Exam Physical Exam: head atraumatic neck supple chest CTA b/l heart irregularly irregular , murmur abdomen soft , nt, nd extremities left arm in sling neuro AAO times 3 Results & Data Results & Data Vital Signs (Past 12 Hours) Vital Signs Temp Pulse Pulse Resp BP Pulse Ox O2 Del Method 09/04/23 08:32 105 H 09/04/23 08:02 36.2 C L 96 H 18 108/71 96 Room Air 09/04/23 03:43 36.4 C L 82 18 121/84 94 Room Air PG Care Time/CCT Total # of Minutes Spent Total Time Spent with Patient: Total time spent is greater than 50% in coordination of care (as documented) at patient's floor/unit and/or counseling patient: Coding Level of Care Code 77431 SUB INP/OBS CARE 2/35MIN Diagnoses Atrial fibrillation with rapid ventricular response I48.91 Fracture of left inferior pubic ramus S32.592A Closed left humeral fracture S42.292A Encounter type: initial encounter Fracture alignment: displaced Fracture morphology: other fracture Humerus Location: proximal Anterior subluxation of shoulder S43.012A Encounter type: initial encounter Laterality: left Hyperlipidemia E78.5 GERD (gastroesophageal reflux disease) K21.9 Diabetes E11.9 Age-related osteoporosis with current pathological fracture M80.00XA Anemia D64.9 (3) Closed left humeral fracture Encounter type: initial encounter Fracture alignment: displaced Fracture morphology: other fracture Humerus Location: proximal Qualified Code(s): S42.292A - Other displaced fracture of upper end of left humerus, initial encounter for closed fracture (4) Anterior subluxation of shoulder Encounter type: initial encounter Laterality: left Qualified Code(s): S43.012A - Anterior subluxation of left humerus, initial encounter
[2023-09-04] MEDS: IRON SUCROSE 200 MG in 0.9 % SODIUM CHLORIDE 100 ML IV ONE (13:12)
[2023-09-05 08:17] LABS: Basophils # (auto) 0.03 K/uL (0.00-0.20); Basophils % (auto) 0.5 %; Eosinophils # (auto) 0.22 K/uL (0.00-0.50); Eosinophils % (auto) 3.5 %; Hematocrit (blood only) 33.8 % (37.0-47.0); Hemoglobin 10.9 g/dl (12.0-16.0); Immature Granulocytes # (auto) 0.05 K/uL (0.01-0.20); Immature Granulocytes % (auto) 0.8 %; Lymphocytes # (auto) 0.91 K/uL (1.20-3.40); Lymphocytes % (auto) 14.6 %; Mean Corpuscular Hemoglobin 29.7 pg (25.0-34.0); Mean Corpuscular Hgb Conc 32.2 g/dL (32.0-36.0); Mean Corpuscular Volume 92.1 fL (80.0-100.0); Monocytes # (auto) 0.54 K/uL (0.11-0.59); Monocytes % (auto) 8.7 %; Neutrophils # (auto) 4.47 K/uL (1.40-6.50); Neutrophils % (auto) 71.9 %; Platelet Count 222 K/uL (130-400); RDW Coefficient of Variation 12.5 % (11.5-14.5); RDW Standard Deviation 42.2 fL (36.4-46.3); Red Blood Count 3.67 M/uL (4.20-5.40); White Blood Count 6.22 K/ul (4.8-10.8)
[2023-09-05 08:31] LABS: BUN Creatinine Ratio 28.3 (10-20); Calcium 9.2 mg/dl (8.6-10.3); Creatinine Clr Calc Pharmacy 41.1 ml/min; Est GFR (African American) 65.3 ml/min; Est GFR (Non-African American) 56.4 ml/min
--- NOTE | 2023-09-05 14:14 | Hospitalist Progress Note ---
Date of Service September 05, 2023 Assessment & Plan (1) Atrial fibrillation with rapid ventricular response: Plan: much better controlled rate Suspected due to missing her usual medications - unknown if she has paroxysmal or permanent atrial fibrillation on Cardizem 240 mg , metoprolol 50 mg Q6 , Digoxin 0.25 continue eliquis cardiology input appreciated monitor on tele started on Digoxin, level 1.1 ECHO EF 60-65 %, severely dilated left atrium , moderate (2) Fracture of left inferior pubic ramus: Plan: pain control WBAT ortho input appreciated SNF on Wednesday (3) Closed left humeral fracture: Plan: Arm sling pain control conservative treatment , patient wants conservative approach, no surgery (4) Anterior subluxation of shoulder: Plan: conservative treatment , no surgery , needs XR in 2 weeks (5) Hyperlipidemia: Plan: Continue atorvastatin (6) GERD (gastroesophageal reflux disease): Plan: Switch omeprazole for pantoprazole per hospital formuilary (7) Diabetes: Plan: HbA1C with AM labs Continue Ryzoies Novolog: --Goal BSG Range: Low 110 mg/dL, High 140 mg/dL --Correction Factor: 45 mg/dL/unit No carb coverage --BSGs ACHS if eating, q6h if npo (8) Age-related osteoporosis with current pathological fracture: Plan: conservative treatment ortho input appreciated pain control PT (9) Anemia: Plan: iron deficiency , stable b12, folate, monitor CBC venofer monitor CBC Plan VTE Prophylaxis - deferred pending repeat serial hemoglobin Diet - T2DM Disposition - admit to med/tele Admission and Anticipated Discharge Date Admission Date: August 30, 2023 Subjective reports feeling better, no shoulder surgery, HR is better controlled, insurance denied rehab , SNF on Wednesday Review of Systems Review of Systems: pain in left arm, pelvis , denies CP, SOB, fever, chills , HR is better , no palpitations, no constipation, diarrhea, able to transfer to the chair with help, reports feeling tired, generalized weakness Physical Exam Physical Exam: head atraumatic neck supple chest CTA b/l heart irregularly irregular , murmur abdomen soft , nt, nd extremities left arm in sling neuro AAO times 3 Results & Data Results & Data Vital Signs (Past 12 Hours) Vital Signs Temp Pulse Resp BP Pulse Ox O2 Del Method 09/05/23 11:44 36.4 C L 86 18 110/67 97 Room Air 09/05/23 07:30 36.3 C L 86 18 129/83 96 Room Air 09/05/23 03:41 36.5 C 89 18 122/74 93 Room Air PG Care Time/CCT Total # of Minutes Spent Total Time Spent with Patient: Total time spent is greater than 50% in coordination of care (as documented) at patient's floor/unit and/or counseling patient: Coding Level of Care Code 11773 SUB INP/OBS CARE 2/35MIN Diagnoses Atrial fibrillation with rapid ventricular response I48.91 Fracture of left inferior pubic ramus S32.592A Closed left humeral fracture S42.292A Encounter type: initial encounter Fracture alignment: displaced Fracture morphology: other fracture Humerus Location: proximal Anterior subluxation of shoulder S43.012A Encounter type: initial encounter Laterality: left Hyperlipidemia E78.5 GERD (gastroesophageal reflux disease) K21.9 Diabetes E11.9 Age-related osteoporosis with current pathological fracture M80.00XA Anemia D64.9 (3) Closed left humeral fracture Encounter type: initial encounter Fracture alignment: displaced Fracture morphology: other fracture Humerus Location: proximal Qualified Code(s): S42.292A - Other displaced fracture of upper end of left humerus, initial enco unter for closed fracture (4) Anterior subluxation of shoulder Encounter type: initial encounter Laterality: left Qualified Code(s): S43.012A - Anterior subluxation of left humerus, initial encounter
[2023-09-06 06:59] LABS: Basophils # (auto) 0.03 K/uL (0.00-0.20); Basophils % (auto) 0.5 %; Eosinophils # (auto) 0.21 K/uL (0.00-0.50); Eosinophils % (auto) 3.3 %; Hematocrit (blood only) 31.7 % (37.0-47.0); Hemoglobin 10.6 g/dl (12.0-16.0); Immature Granulocytes # (auto) 0.05 K/uL (0.01-0.20); Immature Granulocytes % (auto) 0.8 %; Lymphocytes # (auto) 1.02 K/uL (1.20-3.40); Lymphocytes % (auto) 16.1 %; Mean Corpuscular Hemoglobin 30.5 pg (25.0-34.0); Mean Corpuscular Hgb Conc 33.4 g/dL (32.0-36.0); Mean Corpuscular Volume 91.4 fL (80.0-100.0); Monocytes # (auto) 0.53 K/uL (0.11-0.59); Monocytes % (auto) 8.3 %; Neutrophils # (auto) 4.51 K/uL (1.40-6.50); Platelet Count 241 K/uL (130-400); RDW Coefficient of Variation 12.4 % (11.5-14.5); RDW Standard Deviation 41.3 fL (36.4-46.3); Red Blood Count 3.47 M/uL (4.20-5.40); White Blood Count 6.35 K/ul (4.8-10.8)
[2023-09-06 07:28] LABS: BUN Creatinine Ratio 27.6 (10-20); Calcium 9.2 mg/dl (8.6-10.3); Creatinine Clr Calc Pharmacy 38.6 ml/min; Est GFR (African American) 60.5 ml/min; Est GFR (Non-African American) 52.2 ml/min; Potassium 4.1 mmol/L (3.5-5.1)
[2023-09-06] MEDS: CYANOCOBALAMIN (B-12) 500 MCG TABLET PO SCH (09:09)
[2023-09-06] MEDS: CHOLECALCIFEROL 125 MCG (5,000 UNITS) TAB PO SCH (12:30)
--- NOTE | 2023-09-06 16:13 | Billing Data ---
Date of Service September 06, 2023 Coding Level of Care Code 37745 IN/OBS DISCH 30 MIN/LESS
--- NOTE | 2023-09-06 16:13 | Discharge Summary ---
Discharge Summary Date of Service September 06, 2023 Notes For Next Care Provider anticipate being able to adjust metoprolol from current dosing of tartrate 50mg qid back to prior home dosing of succinate 50mg daily as she recovers Medication Changes From Visit metoprolol currently at 50mg qid Admission HPI Per Admitting Provider Alicia Burden is an 88 year old female who presents to the ER after ground- level fall from standing while taking her dog outside this morning. Patient was on the ground for 1 hour when her family member went to check on her and found her on the ground. She did not hit her head but landed on the left side with left shoulder pain and left hip pain. She lives by herself at home. She is on Eliquis. Landed on grass. No chest pain, dizziness or shortness of breath prior to falling. No LOC. Lost her balance as she leaned over. Atrial fibrillation is known diagnosis. She missed all her morning medications. Hand Dry Cleaner is Alfredo Pierce - Dr Gianna Luna. Principal Dx & Hospital Course #1 = Principal Diagnosis (1) Atrial fibrillation with rapid ventricular response: much better controlled rate Suspected due to missing her usual medications - unknown if she has paroxysmal or permanent atrial fibrillation on Cardizem 240 mg , metoprolol 50 mg Q6 continue eliquis cardiology input appreciated ECHO EF 60-65 %, severely dilated left atrium , moderate safe for SNF (2) Fracture of left inferior pubic ramus: pain control WBAT ortho input appreciated rehab at SNF (3) Closed left humeral fracture: Arm sling pain control conservative treatment, patient wants conservative approach, no surgery outpatient ortho follow up ([facility]) (4) Anterior subluxation of shoulder: conservative treatment , no surgery , needs XR in 2 weeks ([facility]) (5) Hyperlipidemia: Continue atorvastatin (6) GERD (gastroesophageal reflux disease): PPI (7) Diabetes: A1c 9.9 (8) Age-related osteoporosis with current pathological fracture: vitamin D, outpatient bone health management (not clear what's been done before and therefore beyond calcium/vitamin D what would be appropriate next steps); vitamin D level w labs as outpt (9) Anemia: iron deficiency , stable b12 borderline - PO replacement, repeat B12 level in a few months monitor CBC periodically as outpt Plan SNF, rehab emphasis Updated Medication List Medication Instructions Recorded Confirmed Type apixaban 2.5 mg tablet (Eliquis) 2.5 mg PO BID 08/30/23 08/30/23 History atorvastatin 10 mg tablet 10 mg PO DAILY 08/30/23 08/30/23 History diltiazem HCl 240 mg 240 mg PO DAILY 08/30/23 08/30/23 History capsule,extended release 24 hr, controlled (DILT-XR) omeprazole 20 mg capsule,delayed 20 mg PO DAILYBB 08/30/23 08/30/23 History release semaglutide 7 mg tablet (Rybelsus) 7 mg PO DAILY 08/30/23 08/30/23 History acetaminophen 500 mg tablet 1,000 mg (2 x 500 mg) PO Q8H PRN 09/06/23 Rx (Tylenol Extra Strength) pain #10 tabs cholecalciferol (vitamin D3) 125 125 mcg PO QAM #30 tabs 09/06/23 Rx mcg (5,000 unit) tablet cyanocobalamin (vitamin B-12) 500 1,000 mcg (2 x 500 mcg) PO QAM #30 09/06/23 Rx mcg tablet tabs metoprolol tartrate 50 mg tablet 50 mg PO Q6H #30 tabs 09/06/23 Rx Hospital Stay Data Consultations 08/30/23 15:51 ED Decision to Admit Stat 08/30/23 23:38 Consult Orthopedic Surgery Routine 08/31/23 07:30 HIM [Consult Health Information Management] Routine 09/01/23 11:21 Consult Cardiology Routine Diagnostic Imagining Performed 08/30/23 11:23 CT cervical spine wo con Stat CT head/brain wo con Stat 08/30/23 13:46 CT shoulder LT wo con Stat Pending Results Patient Have Any Pending Studies at Discharge: No Discharge Instructions Given to Patient (Per Discharging Provider) Humerus fracture, pelvic fracturepain control has been quite easy with Tylenol as needed. Initiated vitamin Dwould consider vitamin D level in a few months to gauge progress; uncertain what other measures have been taken for her bone health prior to admissionwould have PCP follow-up in this respect A-fib/RVRseems to be improving pretty nicelywas on Toprol XL 50 mg daily and diltiazem 240 mg daily prior to admission. Current escalation of metoprolol to metoprolol tartrate 50 mg every 6 hours is assumed to likely be temporaryas she settles back to baseline, hopefully we can have her metoprolol titrated back to her previous home dosing B12 was borderline at 350supplementation initiated, repeat labs in 3-4 months Total Time Total Time Spent Total Time Spent (In Minutes): <30
== END 2023-09-06 17:55 | DRG 543 ==
LOC: ED 10:30 → SUATTDRO 17:45 → EDINP 17:45 → 2N 17:59

== ENCOUNTER 2023-12-18 15:02 | Inpatient (IN) ==
--- OUTSIDE RECORDS SUMMARY | 2023-12-18 15:06 | External Medical Summary ---
Author Name Unknown Address Unknown Organization K1F:LABORATORY [facility] [address] [facility] [place] [address] Laboratory Report Ordering Provider Test Date Status DEBRA RUBI 10/04/2023 04:56:00 Final Observation Date Value Abnormality Reference (Units ) Status SYNC LEUKOCYTES IN BLOOD BY AUTOMATED COUNT 10/04/2023 04:56:00 4.68 4.00-10.80 (K/uL) Final Segs 10/04/2023 04:56:00 57.7 40.0-75.0 (%) Final Lymphs % 10/04/2023 04:56:00 32.1 18.0-42.0 (%) Final Monos 10/04/2023 04:56:00 7.9 1.0-11.0 (%) Final Eosinophils 10/04/2023 04:56:00 1.5 0.0-6.0 (%) Final Basos 10/04/2023 04:56:00 0.4 0.0-2.0 (%) Final Immature Granulocyte, Percent 10/04/2023 04:56:00 0.4 0.0-2.0 (%) Final Absolute Segs 10/04/2023 04:56:00 2.70 1.80-7.70 (K/uL) Final Lymphs, absolute 10/04/2023 04:56:00 1.50 1.00-4.80 (K/ul) Final Monos, Abs 10/04/2023 04:56:00 0.37 0.00-1.10 (K/uL) Final Eos, Abs 10/04/2023 04:56:00 0.07 0.00-0.70 (K/uL) Final Basos, Abs 10/04/2023 04:56:00 0.02 0.00-0.20 (K/uL) Final Immature Granulocytes, Number 10/04/2023 04:56:00 0.02 0.00-0.20 (K/uL) Final Performing Location LABORATORY [facility] - [facility] [address]. [place] [address]
--- OUTSIDE RECORDS SUMMARY | 2023-12-18 15:06 | External Medical Summary ---
Author Name Unknown Address Unknown Organization K1F:LAB[facility]ATORY [facility] - [address] [facility] [place] [address] Laboratory Report Ordering Provider Test Date Status DEBRA RUBI 09/27/2023 05:40:00 Final Observation Date Value Abnormality Reference (Units ) Status SYNC LEUKOCYTES IN BLOOD BY AUTOMATED COUNT 09/27/2023 05:40:00 4.00 4.00-10.80 (K/uL) Final Segs 09/27/2023 05:40:00 53.6 40.0-75.0 (%) Final Lymphs % 09/27/2023 05:40:00 32.3 18.0-42.0 (%) Final Monos 09/27/2023 05:40:00 9.0 1.0-11.0 (%) Final Eosinophils 09/27/2023 05:40:00 3.8 0.0-6.0 (%) Final Basos 09/27/2023 05:40:00 0.8 0.0-2.0 (%) Final Immature Granulocyte, Percent 09/27/2023 05:40:00 0.5 0.0-2.0 (%) Final Absolute Segs 09/27/2023 05:40:00 2.15 1.80-7.70 (K/uL) Final Lymphs, absolute 09/27/2023 05:40:00 1.29 1.00-4.80 (K/ul) Final Monos, Abs 09/27/2023 05:40:00 0.36 0.00-1.10 (K/uL) Final Eos, Abs 09/27/2023 05:40:00 0.15 0.00-0.70 (K/uL) Final Basos, Abs 09/27/2023 05:40:00 0.03 0.00-0.20 (K/uL) Final Immature Granulocytes, Number 09/27/2023 05:40:00 0.02 0.00-0.20 (K/uL) Final Performing Location LABORATORY [facility] - [address] [place] [address]
--- OUTSIDE RECORDS SUMMARY | 2023-12-18 15:06 | External Medical Summary ---
Author Name Unknown Address Unknown Organization K1F:LABORATORY [facility] - [address] [place] [address] Laboratory Report Ordering Provider Test Date Status DEBRA RUBI 10/04/2023 04:56:00 Final Observation Date Value Abnormality Reference (Units ) Status BUN 10/04/2023 04:56:00 23 Above high normal 6-20 (mg/dL) Final Creatinine 10/04/2023 04:56:00 1.1 Above high normal 0.5-1.0 (mg/dL) Final Glomerular filtration rate/1.73 sq M.predicted [Volume Rate/Area] in Serum, Plasma or Blood by Creatinine-based formula (CKD-EPI) 10/04/2023 04:56:00 49 Below low normal >=60 (mL/min) Final eGFR is calculated based on the CKD-EPI 2020 equation Sodium 10/04/2023 04:56:00 141 135-146 (m mol/L) Final Potassium 10/04/2023 04:56:00 4.2 3.5-5.1 (m mol/L) Final Cl 10/04/2023 04:56:00 104 98-107 (mm ol/L) Final CO2 10/04/2023 04:56:00 23 22-32 (mmo l/L) Final Anion gap 10/04/2023 04:56:00 14 7-15 (mmol /L) Final Glucose 10/04/2023 04:56:00 154 Above high normal 70 -120 (mg/dL) Final Calcium 10/04/2023 04:56:00 9.6 8.4-10.2 ( mg/dL) Final Performing Location LABORATORY [facility] - [address] [address]
--- OUTSIDE RECORDS SUMMARY | 2023-12-18 15:06 | External Medical Summary ---
Author Name Unknown Address Unknown Organization K1F:LABORATORY [facility] - [facility] [place] [address] Laboratory Report Ordering Provider Test Date Status DEBRA RUBI 10/04/2023 04:56:00 Final Observation Date Value Abnormality Reference (Units ) Status WBC, Total 10/04/2023 04:56:00 4.68 4.00-10.80 (K/uL) Final RBC 10/04/2023 04:56:00 3.81 3.85-5.15 (M/uL) Final Hemoglobin 10/04/2023 04:56:00 11.9 Below low normal 12.0-15.3 (g/dL) Final HCT 10/04/2023 04:56:00 36.4 36.0-45.2 (%) Final MCV 10/04/2023 04:56:00 95.5 81.5-97.5 (fL) Final MCH 10/04/2023 04:56:00 31.2 27.0-34.0 (pg) Final MCHC 10/04/2023 04:56:00 32.7 32.0-36.0 (g/dL) Final RDW 10/04/2023 04:56:00 13.7 11.5-15.5 (%) Final Platelets 10/04/2023 04:56:00 205 140-400 (K/uL) Final MPV 10/04/2023 04:56:00 11.6 6.6-11.1 (fL) Final Nucleated erythrocytes/100 leukocytes [Ratio] in Blood by Automated count 10/04/2023 04:56:00 0 <=0 (/100 WBCs) Final Performing Location LABORATORY [facility] - [address] [place] [address]
--- OUTSIDE RECORDS SUMMARY | 2023-12-18 15:07 | External Medical Summary ---
Author Name Unknown Address Unknown Organization K1F:LABORATORY [facility] - [address] [facility] [place] [address] Laboratory Report Ordering Provider Test Date Status DEBRA RUIB 09/13/2023 06:46:00 Final Observation Date Value Abnormality Reference (Units ) Status SYNC LEUKOCYTES IN BLOOD BY AUTOMATED COUNT 09/13/2023 06:46:00 5.50 4.00-10.80 (K/uL) Final Segs 09/13/2023 06:46:00 67.5 40.0-75.0 (%) Final Lymphs % 09/13/2023 06:46:00 22.2 18.0-42.0 (%) Final Monos 09/13/2023 06:46:00 6.5 1.0-11.0 (%) Final Eosinophils 09/13/2023 06:46:00 2.5 0.0-6.0 (%) Final Basos 09/13/2023 06:46:00 0.4 0.0-2.0 (%) Final Immature Granulocyte, Percent 09/13/2023 06:46:00 0.9 0.0-2.0 (%) Final Absolute Segs 09/13/2023 06:46:00 3.71 1.80-7.70 (K/uL) Final Lymphs, absolute 09/13/2023 06:46:00 1.22 1.00-4.80 (K/ul) Final Monos, Abs 09/13/2023 06:46:00 0.36 0.00-1.10 (K/uL) Final Eos, Abs 09/13/2023 06:46:00 0.14 0.00-0.70 (K/uL) Final Basos, Abs 09/13/2023 06:46:00 0.02 0.00-0.20 (K/uL) Final Immature Granulocytes, Number 09/13/2023 06:46:00 0.05 0.00-0.20 (K/uL) Final Performing Location LABORATORY [facility] - [facility] [address]. [place] [address]
--- OUTSIDE RECORDS SUMMARY | 2023-12-18 15:07 | External Medical Summary ---
Author Name Unknown Address Unknown Organization K1F:LABORATORY [facility] - [address] [place] [address] Laboratory Report Ordering Provider Test Date Status DEBRA RUBI 09/20/2023 06:31:00 Final Observation Date Value Abnormality Reference (Units ) Status BUN 09/20/2023 06:31:00 20 6-20 (mg/dL) Final Creatinine 09/20/2023 06:31:00 1.0 0.5-1.0 (mg/dL) Final Glomerular filtration rate/1.73 sq M.predicted [Volume Rate/Area] in Serum, Plasma or Blood by Creatinine-based formula (CKD-EPI) 09/20/2023 06:31:00 54 Below low normal >=60 (mL/min) Final eGFR is calculated based on the CKD-EPI 2020 equation Sodium 09/20/2023 06:31:00 139 135-146 (m mol/L) Final Potassium 09/20/2023 06:31:00 4.6 3.5-5.1 (m mol/L) Final Cl 09/20/2023 06:31:00 105 98-107 (mm ol/L) Final CO2 09/20/2023 06:31:00 22 22-32 (mmo l/L) Final Anion gap 09/20/2023 06:31:00 12 7-15 (mmol /L) Final Glucose 09/20/2023 06:31:00 175 Above high normal 70 -120 (mg/dL) Final Calcium 09/20/2023 06:31:00 9.6 8.4-10.2 ( mg/dL) Final Performing Location LABORATORY [facility] - [address] [place] [address]
--- OUTSIDE RECORDS SUMMARY | 2023-12-18 15:07 | External Medical Summary ---
Author Name Unknown Address Unknown Organization K1F:LABORATORY [facility] - [facility] [place] [address] Laboratory Report Ordering Provider Test Date Status DEBRA RUBI 09/20/2023 06:31:00 Final Observation Date Value Abnormality Reference (Units ) Status WBC, Total 09/20/2023 06:31:00 5.62 4.00-10.80 (K/uL) Final RBC 09/20/2023 06:31:00 3.78 3.85-5.15 (M/uL) Final Hemoglobin 09/20/2023 06:31:00 11.8 Below low normal 12.0-15.3 (g/dL) Final HCT 09/20/2023 06:31:00 36.6 36.0-45.2 (%) Final MCV 09/20/2023 06:31:00 96.8 81.5-97.5 (fL) Final MCH 09/20/2023 06:31:00 31.2 27.0-34.0 (pg) Final MCHC 09/20/2023 06:31:00 32.2 32.0-36.0 (g/dL) Final RDW 09/20/2023 06:31:00 13.5 11.5-15.5 (%) Final Platelets 09/20/2023 06:31:00 290 140-400 (K/uL) Final MPV 09/20/2023 06:31:00 11.5 6.6-11.1 (fL) Final Nucleated erythrocytes/100 leukocytes [Ratio] in Blood by Automated count 09/20/2023 06:31:00 0 <=0 (/100 WBCs) Final Performing Location LABORATORY [facility] - [address] [place] [address]
--- OUTSIDE RECORDS SUMMARY | 2023-12-18 15:07 | External Medical Summary ---
Author Name Unknown Address Unknown Organization K01:[facility]ORY [facility] [place] [facility] [address] [facility] [address] Laboratory Report Ordering Provider Test Date Status DEBRA RUBI 09/13/2023 06:46:00 Final Observation Date Value Abnormality Reference (Units ) Status HbA1C 09/13/2023 06:46:00 9.4 Above high normal 4. 0-5.6 (%) Final The use of HbA1c to monitor glycemic status is based on normal hemoglobin and HbA composition. This test should not be used in patients with abnormal hemoglobin that affects the half life of the red blood cell or the in vivo glycation rates. Glucose, estimated average 09/13/2023 06:46:00 223 Above high normal <126 (mg/dL) Fin al Performing Location LAB[facility]ATORY [facility] [place] - [address] [facility] [address]
--- OUTSIDE RECORDS SUMMARY | 2023-12-18 15:07 | External Medical Summary ---
Author Name Unknown Address Unknown Organization K1F:LABORATORY [facility] - [address] [facility] [place] [address] Laboratory Report Ordering Provider Test Date Status DEBRA RUBI 09/20/2023 06:31:00 Final Observation Date Value Abnormality Reference (Units ) Status SYNC LEUKOCYTES IN BLOOD BY AUTOMATED COUNT 09/20/2023 06:31:00 5.62 4.00-10.80 (K/uL) Final Segs 09/20/2023 06:31:00 66.4 40.0-75.0 (%) Final Lymphs % 09/20/2023 06:31:00 23.5 18.0-42.0 (%) Final Monos 09/20/2023 06:31:00 7.1 1.0-11.0 (%) Final Eosinophils 09/20/2023 06:31:00 2.0 0.0-6.0 (%) Final Basos 09/20/2023 06:31:00 0.5 0.0-2.0 (%) Final Immature Granulocyte, Percent 09/20/2023 06:31:00 0.5 0.0-2.0 (%) Final Absolute Segs 09/20/2023 06:31:00 3.73 1.80-7.70 (K/uL) Final Lymphs, absolute 09/20/2023 06:31:00 1.32 1.00-4.80 (K/ul) Final Monos, Abs 09/20/2023 06:31:00 0.40 0.00-1.10 (K/uL) Final Eos, Abs 09/20/2023 06:31:00 0.11 0.00-0.70 (K/uL) Final Basos, Abs 09/20/2023 06:31:00 0.03 0.00-0.20 (K/uL) Final Immature Granulocytes, Number 09/20/2023 06:31:00 0.03 0.00-0.20 (K/uL) Final Performing Location LABORATORY [facility] - [facility] [address]. [place] [address]
--- OUTSIDE RECORDS SUMMARY | 2023-12-18 15:07 | External Medical Summary ---
Author Name Unknown Address Unknown Organization K1F:LABORATORY [facility] - [address] [place] [address] Laboratory Report Ordering Provider Test Date Status DEBRA RUBI 09/13/2023 06:46:00 Final Observation Date Value Abnormality Reference (Units ) Status BUN 09/13/2023 06:46:00 22 Above high normal 6-20 (mg/dL) Final Creatinine 09/13/2023 06:46:00 0.9 0.5-1.0 (mg/dL) Final Glomerular filtration rate/1.73 sq M.predicted [Volume Rate/Area] in Serum, Plasma or Blood by Creatinine-based formula (CKD-EPI) 09/13/2023 06:46:00 61 >=60 (mL/min) Final eGFR is calculated based on the CKD-EPI 2020 equation Sodium 09/13/2023 06:46:00 141 135-146 (m mol/L) Final Potassium 09/13/2023 06:46:00 4.4 3.5-5.1 (m mol/L) Final Cl 09/13/2023 06:46:00 105 98-107 (mm ol/L) Final CO2 09/13/2023 06:46:00 26 22-32 (mmo l/L) Final Anion gap 09/13/2023 06:46:00 10 7-15 (mmol /L) Final Glucose 09/13/2023 06:46:00 203 Above high normal 70 -120 (mg/dL) Final Calcium 09/13/2023 06:46:00 9.2 8.4-10.2 ( mg/dL) Final Performing Location LABORATORY [facility] - [address] [place] [address]
--- OUTSIDE RECORDS SUMMARY | 2023-12-18 15:07 | External Medical Summary ---
Author Name Unknown Address Unknown Organization K1F:LABORATORY [facility] - [address] [facility] [place] [address] Laboratory Report Ordering Provider Test Date Status DEBRA RUBI 09/07/2023 06:03:00 Final Observation Date Value Abnormality Reference (Units ) Status SYNC LEUKOCYTES IN BLOOD BY AUTOMATED COUNT 09/07/2023 06:03:00 5.78 4.00-10.80 (K/uL) Final Segs 09/07/2023 06:03:00 61.8 40.0-75.0 (%) Final Lymphs % 09/07/2023 06:03:00 24.6 18.0-42.0 (%) Final Monos 09/07/2023 06:03:00 9.2 1.0-11.0 (%) Final Eosinophils 09/07/2023 06:03:00 2.9 0.0-6.0 (%) Final Basos 09/07/2023 06:03:00 0.5 0.0-2.0 (%) Final Immature Granulocyte, Percent 09/07/2023 06:03:00 1.0 0.0-2.0 (%) Final Absolute Segs 09/07/2023 06:03:00 3.57 1.80-7.70 (K/uL) Final Lymphs, absolute 09/07/2023 06:03:00 1.42 1.00-4.80 (K/ul) Final Monos, Abs 09/07/2023 06:03:00 0.53 0.00-1.10 (K/uL) Final Eos, Abs 09/07/2023 06:03:00 0.17 0.00-0.70 (K/uL) Final Basos, Abs 09/07/2023 06:03:00 0.03 0.00-0.20 (K/uL) Final Immature Granulocytes, Number 09/07/2023 06:03:00 0.06 0.00-0.20 (K/uL) Final Performing Location LABORATORY [facility] - [facility] [address]. [place] [address]
--- OUTSIDE RECORDS SUMMARY | 2023-12-18 15:07 | External Medical Summary ---
Author Name Unknown Address Unknown Organization K1F:LABORATORY [facility] - [facility] [place] [address] Laboratory Report Ordering Provider Test Date Status DEBRA RUBI 09/13/2023 06:46:00 Final Observation Date Value Abnormality Reference (Units ) Status WBC, Total 09/13/2023 06:46:00 5.50 4.00-10.80 (K/uL) Final RBC 09/13/2023 06:46:00 3.57 3.85-5.15 (M/uL) Final Hemoglobin 09/13/2023 06:46:00 10.8 Below low normal 12.0-15.3 (g/dL) Final HCT 09/13/2023 06:46:00 34.2 Below low normal 36.0-45.2 (%) Final MCV 09/13/2023 06:46:00 95.8 81.5-97.5 (fL) Final MCH 09/13/2023 06:46:00 30.3 27.0-34.0 (pg) Final MCHC 09/13/2023 06:46:00 31.6 32.0-36.0 (g/dL) Final RDW 09/13/2023 06:46:00 13.2 11.5-15.5 (%) Final Platelets 09/13/2023 06:46:00 333 140-400 (K/uL) Final MPV 09/13/2023 06:46:00 11.6 6.6-11.1 (fL) Final Nucleated erythrocytes/100 leukocytes [Ratio] in Blood by Automated count 09/13/2023 06:46:00 0 <=0 (/100 WBCs) Final Performing Location LABORATORY [facility] - [address] [place] [address]
--- OUTSIDE RECORDS SUMMARY | 2023-12-18 15:07 | External Medical Summary ---
Author Name Unknown Address Unknown Organization K1F:LABORATORY [facility] - [address] [place] [address] Laboratory Report Ordering Provider Test Date Status DEBRA RUBI 09/07/2023 06:03:00 Final Observation Date Value Abnormality Reference (Units ) Status WBC, Total 09/07/2023 06:03:00 5.78 4.00-10.80 (K/uL) Final RBC 09/07/2023 06:03:00 3.60 3.85-5.15 (M/uL) Final Hemoglobin 09/07/2023 06:03:00 11.0 Below low normal 12.0-15.3 (g/dL) Final HCT 09/07/2023 06:03:00 33.9 Below low normal 36.0-45.2 (%) Final MCV 09/07/2023 06:03:00 94.2 81.5-97.5 (fL) Final MCH 09/07/2023 06:03:00 30.6 27.0-34.0 (pg) Final MCHC 09/07/2023 06:03:00 32.4 32.0-36.0 (g/dL) Final RDW 09/07/2023 06:03:00 12.7 11.5-15.5 (%) Final Platelets 09/07/2023 06:03:00 269 140-400 (K/uL) Final MPV 09/07/2023 06:03:00 11.8 6.6-11.1 (fL) Final Nucleated erythrocytes/100 leukocytes [Ratio] in Blood by Automated count 09/07/2023 06:03:00 0 <=0 (/100 WBCs) Final Performing Location [facility] - [address] [id number]
--- OUTSIDE RECORDS SUMMARY | 2023-12-18 15:07 | External Medical Summary ---
Author Name Unknown Address Unknown Organization K1F:LABORATORY [facility] - [facility] [address] [place] [id number] Laboratory Report Ordering Provider Test Date Status DEBRA RUBI 09/27/2023 05:40:00 Final Observation Date Value Abnormality Reference (Units ) Status WBC, Total 09/27/2023 05:40:00 4.00 4.00-10.80 (K/uL) Final RBC 09/27/2023 05:40:00 3.82 3.85-5.15 (M/uL) Final Hemoglobin 09/27/2023 05:40:00 11.8 Below low normal 12.0-15.3 (g/dL) Final HCT 09/27/2023 05:40:00 36.5 36.0-45.2 (%) Final MCV 09/27/2023 05:40:00 95.5 81.5-97.5 (fL) Final MCH 09/27/2023 05:40:00 30.9 27.0-34.0 (pg) Final MCHC 09/27/2023 05:40:00 32.3 32.0-36.0 (g/dL) Final RDW 09/27/2023 05:40:00 13.9 11.5-15.5 (%) Final Platelets 09/27/2023 05:40:00 192 140-400 (K/uL) Final MPV 09/27/2023 05:40:00 11.4 6.6-11.1 (fL) Final Nucleated erythrocytes/100 leukocytes [Ratio] in Blood by Automated count 09/27/2023 05:40:00 0 <=0 (/100 WBCs) Final Performing Location LABORATORY [facility] - [address] [place] [address]
--- OUTSIDE RECORDS SUMMARY | 2023-12-18 15:07 | External Medical Summary ---
Author Name Unknown Address Unknown Organization K1F:LABORATORY [facility] - [address] [place] [id number] Laboratory Report Ordering Provider Test Date Status DEBRA RUBI 09/07/2023 06:03:00 Final Observation Date Value Abnormality Reference (Units ) Status BUN 09/07/2023 06:03:00 26 Above high normal 6-20 (mg/dL) Final Creatinine 09/07/2023 06:03:00 1.0 0.5-1.0 (mg/dL) Final Glomerular filtration rate/1.73 sq M.predicted [Volume Rate/Area] in Serum, Plasma or Blood by Creatinine-based formula (CKD-EPI) 09/07/2023 06:03:00 54 Below low normal >=60 (mL/min) Final eGFR is calculated based on the CKD-EPI 2020 equation Sodium 09/07/2023 06:03:00 140 135-146 (m mol/L) Final Potassium 09/07/2023 06:03:00 4.2 3.5-5.1 (m mol/L) Final Cl 09/07/2023 06:03:00 101 98-107 (mm ol/L) Final CO2 09/07/2023 06:03:00 23 22-32 (mmo l/L) Final Anion gap 09/07/2023 06:03:00 16 Above high normal 7- 15 (mmol/L) Final Glucose 09/07/2023 06:03:00 178 Above high normal 70 -120 (mg/dL) Final Calcium 09/07/2023 06:03:00 9.4 8.4-10.2 ( mg/dL) Final Performing Location LABORATORY [facility] - [address] [place] [address]
--- OUTSIDE RECORDS SUMMARY | 2023-12-18 15:07 | External Medical Summary ---
Author Name Unknown Address Unknown Organization K1F:LABORATORY [facility] - [address] [place] [id number] Laboratory Report Ordering Provider Test Date Status DEBRA RUBI 09/27/2023 05:40:00 Final Observation Date Value Abnormality Reference (Units ) Status BUN 09/27/2023 05:40:00 20 6-20 (mg/dL) Final Creatinine 09/27/2023 05:40:00 1.0 0.5-1.0 (mg/dL) Final Glomerular filtration rate/1.73 sq M.predicted [Volume Rate/Area] in Serum, Plasma or Blood by Creatinine-based formula (CKD-EPI) 09/27/2023 05:40:00 54 Below low normal >=60 (mL/min) Final eGFR is calculated based on the CKD-EPI 2020 equation Sodium 09/27/2023 05:40:00 139 135-146 (m mol/L) Final Potassium 09/27/2023 05:40:00 4.4 3.5-5.1 (m mol/L) Final Cl 09/27/2023 05:40:00 102 98-107 (mm ol/L) Final CO2 09/27/2023 05:40:00 24 22-32 (mmo l/L) Final Anion gap 09/27/2023 05:40:00 13 7-15 (mmol /L) Final Glucose 09/27/2023 05:40:00 142 Above high normal 70 -120 (mg/dL) Final Calcium 09/27/2023 05:40:00 9.5 8.4-10.2 ( mg/dL) Final Performing Location LABORATORY [facility] - [address] [place] [address]
--- NOTE | 2023-12-18 15:41 | Emergency Department Note ---
History of Present Illness General Chief complaint: Trauma Stated complaint: FELL THIS AM, R HIP PAIN Time Seen by Provider: 12/18/23 15:22 History of Present Illness Provider complaint: Fall right hip pain Maximum Pain Intensity: 9 88-year-old female presents emergency department for fall. Patient [place] and fell while trying to get into her wheelchair. She states she landed on her right hip. Patient states she is not sure if she hit her head. She denies any headache or neck pain though. Patient is on Eliquis. Home Medications Medication Instructions Recorded Confirmed Type apixaban 2.5 mg tablet (Eliquis) 2.5 mg PO BID 08/30/23 12/18/23 History atorvastatin 10 mg tablet 10 mg PO QAM 08/30/23 12/18/23 History diltiazem HCl 240 mg 240 mg PO QAM 08/30/23 12/18/23 History capsule,extended release 24 hr, controlled (DILT-XR) omeprazole 20 mg capsule,delayed 20 mg PO DAILYBB 08/30/23 12/18/23 History release acetaminophen 500 mg tablet 1,000 mg (2 x 500 mg) PO Q8H PRN 09/06/23 12/18/23 Rx (Tylenol Extra Strength) pain #10 tabs cholecalciferol (vitamin D3) 125 125 mcg PO QAM #30 tabs 09/06/23 12/18/23 Rx mcg (5,000 unit) tablet cyanocobalamin (vitamin B-12) 500 1,000 mcg (2 x 500 mcg) PO QAM #30 09/06/23 12/18/23 Rx mcg tablet tabs amiodarone 200 mg tablet See Rx Instructions .Route .COMPLEX 12/18/23 12/18/23 History digoxin 125 mcg (0.125 mg) tablet 125 mcg PO Q OTHER DAY 12/18/23 12/18/23 History magnesium oxide 400 mg (241.3 mg 800 mg PO QAM 12/18/23 12/18/23 History magnesium) tablet metoprolol tartrate 25 mg tablet 25 mg PO TID 12/18/23 12/18/23 History semaglutide 3 mg tablet (Rybelsus) 3 mg PO QAM 12/18/23 12/18/23 History Allergies Allergy/AdvReac Type Severity Reaction Status Date / Time No Known Allergies Allergy Unverified 12/18/23 17:51 Past Med/Surg History Problem List (Updated 12/18/23 @ 21:42 by Mele Washburn MD) Closed right hip fracture (Acute) Fall Aortic stenosis Anemia Closed fracture of left proximal humerus Murmur Age-related osteoporosis with current pathological fracture Closed fracture of pubic ramus (Acute) Fracture of left inferior pubic ramus Atrial fibrillation with rapid ventricular response Anterior subluxation of shoulder (Acute) Closed left humeral fracture (Acute) Hyperlipidemia GERD (gastroesophageal reflux disease) Diabetes Medical History Atrial fibrillation Atrial flutter Surgical History H/O: hysterectomy Social History Smoking Status: Never smoker Hx Alcohol Use: No Hx Substance Use: No Preferred Language: Lithuanian Communication Ability: Effective Hearing Ability: Normal Mechanics Supervisor Required: No Beliefs That Will Affect Care: None Current Living Situation: Alone current occupational status: retired Feels Safe at Home: Yes Safety Concerns: Feels Safe At This Time Assistive Devices: Cane Physical Exam Vital Signs Vital Signs - 24 hr 12/18/23 15:10 12/18/23 15:29 12/18/23 15:29 Temperature 36.4 C L Temperature Source Temporal Artery Scan Pulse Rate 104 H Pulse Rate from SpO2 Sensor Respiratory Rate 18 Respiratory Effort / Characteristics Non-Labored Spontaneous Respiratory Depth Normal Blood Pressure 113/73 Blood Pressure [Left Arm] 104/86 Blood Pressure Mean 86 Blood Pressure Mean [Left Arm] 92 Pulse Oximetry 100 Oxygen Delivery Method Room Air Room Air Oxygen Flow Rate 94 Sepsis Recent Fever Within 48 Hours No Sepsis New/Unexplained Change in Mental Status No Sepsis Action Taken by Nursing No Action Required 12/18/23 15:52 12/18/23 15:58 12/18/23 16:00 Temperature Temperature Source Pulse Rate 88 69 Pulse Rate from SpO2 Sensor Respiratory Rate Respiratory Effort / Characteristics Respiratory Depth Blood Pressure 105/67 Blood Pressure [Left Arm] Blood Pressure Mean 76 Blood Pressure Mean [Left Arm] Pulse Oximetry 93 Oxygen Delivery Method Room Air Oxygen Flow Rate Sepsis Recent Fever Within 48 Hours Sepsis New/Unexplained Change in Mental Status Sepsis Action Taken by Nursing 12/18/23 16:48 12/18/23 17:00 12/18/23 17:06 Temperature Temperature Source Pulse Rate 83 76 69 Pulse Rate from SpO2 Sensor 88 77 75 Respiratory Rate 12 15 16 Respiratory Effort / Characteristics Respiratory Depth Blood Pressure 115/76 97/57 L Blood Pressure [Left Arm] Blood Pressure Mean 89 70 Blood Pressure Mean [Left Arm] Pulse Oximetry 94 94 93 Oxygen Delivery Method Oxygen Flow Rate Sepsis Recent Fever Within 48 Hours Sepsis New/Unexplained Change in Mental Status Sepsis Action Taken by Nursing Physical Exam GENERAL: She does not appear distressed. HENT: Exam performed. -Head: Normocephalic and atraumatic. -Right Ear: External ear normal. No mastoid erythema -Left Ear: External ear normal. No mastoid erythema NECK: Normal range of motion. Neck supple. No JVD present. No spinous process tenderness present. CV: Normal rate, irregular rhythm, normal heart sounds and intact distal pulses. There is no peripheral edema. Palpable radial pulses bue. PULM/CHEST: Effort normal and breath sounds normal. No respiratory distress. No stridor. She has no wheezes. She has no rales. -Chest Wall: She exhibits no tenderness. ABD: The abdomen is soft.There is no tenderness. There is no rebound, no guarding MUSC/SKEL: Pain on palpation of the right hip. Right lower extremity are shortened and externally rotated. NEURO: Motor and sensation grossly intact. Course Course 152: The patient was evaluated in room C2. A complete history and physical exam was performed Cardiac monitoring: An order was placed for continuous cardiac monitoring. The monitor shows a rate of 80 with atrial flutter rhythm interpreted by or Trauma alert paged as the patient is on Eliquis. 1535: X-ray shows right femoral neck fracture. 1737: Vital signs stable. Labs are unremarkable. Imaging shows no other traumatic injuries other than the right femoral neck fracture. Discussed case with Dr. Kennedy Daniels orthopedics on-call he states to admit to medicine hold [facility]. Spoke with Dr. Yamel Daniels hospitalist who states she will admit to their service. Administered Medications Acetaminophen (Acetaminophen 325 Mg Tab) 650 mg PO Q6H JOSE Stop: 01/18/24 00:00 Last Admin: 12/18/23 18:58 Dose: 650 mg Documented By: BS Morphine Sulfate (Morphine Sulfate 4 Mg/Ml 1 Ml Carp\Vial) 4 mg IV Q1H PRN PRN Reason: Severe Pain (Rating 7,8,9,10) Stop: 01/01/24 15:51 Last Admin: 12/18/23 16:35 Dose: 4 mg Documented By: LUZ MARIA Discontinued Medications Acetaminophen (Acetaminophen 500 Mg Tab) 1,000 mg PO NOW STA Stop: 12/18/23 17:58 Last Admin: 12/18/23 19:00 Dose: Not Given Documented By: LUZ MARIA Lactated Ringer's (Lr) 500 mls @ 999 mls/hr IV .Q31M ONE Stop: 12/18/23 18:31 Last Infusion: 12/18/23 20:13 Dose: Infused Documented By: LUZ MARIA Admin: 12/18/23 19:27 Dose: 999 mls/hr Documented By: LUZ MARIA Ioversol (Optiray 320 100ml) 91 ml IV ONCE ONE Stop: 12/18/23 16:25 Last Admin: 12/18/23 16:24 Dose: 91 ml Documented By: NAIF Lidocaine (Lidocaine 5% 1 Patch) 1 patch TD NOW STA Stop: 12/18/23 18:16 Last Admin: 12/18/23 18:59 Dose: 1 patch Documented By: LUZ MARIA Metoprolol Tartrate (Metoprolol Tartrate 25 Mg Tab) 25 mg PO NOW STA Stop: 12/18/23 17:59 Last Admin: 12/18/23 18:59 Dose: 25 mg Documented By: LUZ MARIA Medical Decision Making Laboratory Data Attestation: I reviewed the patient's lab results. 12/18/23 15:22 12/18/23 15:22 Lab Results 12/18/23 Range/Units 15:22 WBC 10.81 H (4.8-10.8) K/ul RBC 4.13 L (4.20-5.40) M/uL Hgb 12.6 (12.0-16.0) g/dl Hct 38.6 (37.0-47.0) % MCV 93.5 (80.0-100.0) fL MCH 30.5 (25.0-34.0) pg MCHC 32.6 (32.0-36.0) g/dL RDW Std Deviation 45.7 (36.4-46.3) fL RDW Coeff of Joshua 13.4 (11.5-14.5) % Plt Count 271 (130-400) K/uL MPV 11.6 (9.4-12.4) fL Immature Gran % (Auto) 0.9 % Neut % (Auto) 83.1 % Lymph % (Auto) 9.0 % [place] % (Auto) 6.0 % Eos % (Auto) 0.7 % Baso % (Auto) 0.3 % Neut # (Auto) 8.98 H (1.40-6.50) K/uL Lymph # (Auto) 0.97 L (1.20-3.40) K/uL [place] # (Auto) 0.65 H (0.11-0.59) K/uL Eos # (Auto) 0.08 (0.00-0.50) K/uL Baso # (Auto) 0.03 (0.00-0.20) K/uL Immature Gran # (Auto) 0.10 (0.01-0.20) K/uL PT 12.0 (9.0-12.0) Seconds INR 1.1 (0.9-1.1) APTT 24 (21-31) Seconds PTT Ratio 0.9 Sodium 136 (136-145) mmol/L Potassium 4.2 (3.5-5.1) mmol/L Chloride 99 (98-107) mmol/L Carbon Dioxide 25 (21-32) mmol/L Anion Gap 12 H (3-11) BUN 17 (6-23) mg/dl Creatinine 1.30 H (0.6-1.2) mg/dl Est Cr Clr Drug Dosing 25.4 ml/min Est GFR ( Amer) 43.0 ml/min Est GFR (Non-Af Amer) 37.1 ml/min BUN/Creatinine Ratio 13.1 (10-20) Glucose 161 H (70-99(Fasting)) mg/dl Calcium 9.9 (8.6-10.3) mg/dl Magnesium 2.2 (1.7-2.4) mg/dl Imaging Data Attestation: I personally reviewed and interpreted this imaging study as follows: My Impression: Pelvis x-ray: Right femoral neck fracture. Radiologist's Impression: Chest X-Ray 12/18/23 15:30 XR chest 1V portable HISTORY: 88 years-old Female fall acute chest trauma status post fall COMPARISON: None TECHNIQUE: AP view the chest FINDINGS: Cardiac silhouette is enlarged. Mitral annular calcifications. No pneumothorax, pleural effusion or airspace consolidation. Bones appear grossly intact. Chronic appearing left proximal humeral fracture deformity. IMPRESSION: Cardiomegaly without acute process. ACT 112: Negative or not required by law. The above report was generated using voice recognition software. It may contain grammatical, syntax or spelling errors. Electronically signed by: Juan Jose Boss M.D. 12/18/2023 4:59 PM Femur X-Ray 12/18/23 15:30 XR pelvis 1-2V routine, XR femur RT 2V routine HISTORY: 88 years-old Female fall acute pain of the pelvis and right hip status post fall COMPARISON: None TECHNIQUE: AP view the pelvis with one view of the right femur FINDINGS: PELVIS: Moderate osteoarthritis of the hips. Demineralized appearance of the bones. Arterial calcifications. Acute proximal right femoral fracture as below. FEMUR: There is an acute and impacted fracture of the right femoral neck which appears transcervical demonstrating superior displacement of approximately 1.6 cm. No dislocation. Moderate soft tissue swelling. IMPRESSION: Acute impacted and displaced transcervical right femoral fracture. ACT 112: Negative or not required by law. The above report was generated using voice recognition software. It may contain grammatical, syntax or spelling errors. Electronically signed by: Juan Jose Boss M.D. 12/18/2023 3:55 PM Pelvis X-Ray 12/18/23 15:30 XR pelvis 1-2V routine, XR femur RT 2V routine HISTORY: 88 years-old Female fall acute pain of the pelvis and right hip status post fall COMPARISON: None TECHNIQUE: AP view the pelvis with one view of the right femur FINDINGS: PELVIS: Moderate osteoarthritis of the hips. Demineralized appearance of the bones. Arterial calcifications. Acute proximal right femoral fracture as below. FEMUR: There is an acute and impacted fracture of the right femoral neck which appears transcervical demonstrating superior displacement of approximately 1.6 cm. No dislocation. Moderate soft tissue swelling. IMPRESSION: Acute impacted and displaced transcervical right femoral fracture. ACT 112: Negative or not required by law. The above report was generated using voice recognition software. It may contain grammatical, syntax or spelling errors. Electronically signed by: Juan Jose Boss M.D. 12/18/2023 3:55 PM Abdomen/Pelvis CT 12/18/23 15:[address] WITH IV CONTRAST HISTORY: Acute abdominal trauma status post fall fall TECHNIQUE: Multiaxial CT images of the abdomen and pelvis were performed following the IV administration of 91 cc of Optiray, A dose lowering technique was utilized adhering to the principles of ALARA. COMPARISON STUDY: Right femur radiographs of same day. FINDINGS: Cardiomegaly with dense mitral annular and annular calcifications. Mild bibasilar atelectasis. No free air. Unremarkable spleen, moderately atrophic pancreas and liver. Patent hepatic and portal veins. Thickening of the adrenal glands suggestive of hyperplasia. Filling defects in the gallbladder lumen suggestive of tumefactive sludge versus cholelithiasis. There are a few cysts noted within the kidneys. 4 mm nonobstructing right renal calculus. 4 mm calculus at the interpolar left kidney. No ureteral calculi or hydronephrosis. Pelvic basin phleboliths. Decompressed urinary bladder. Atherosclerosis of the aorta. No lymphadenopathy. No retroperitoneal hemorrhage identified. Mild distal esophageal wall thickening. Duodenal diverticulum. No bowel obstruction or bowel wall thickening. No free fluid. Colonic diverticulosis. The appendix is not well visualized. Degenerative changes of the spine, pelvis and hips. Chronic right-sided rib fractures. Nondisplaced left sacral insufficiency fracture with marginal sclerosis. Acute comminuted, impacted and mildly displaced right femoral neck fracture. Healing subacute left pelvic ring fractures with healing sclerosis. IMPRESSION: 1. Acute, comminuted, mildly angulated, displaced and impacted right femoral neck fracture. 2. Healing subacute nondisplaced left sacral and pelvic ring fracture deformities. 3. No evidence of acute solid organ injury. 4. Nonobstructing bilateral nephrolithiasis. 5. Gallbladder sludge versus cholelithiasis. 6. Additional findings as above. ACT 112: Negative or not required by law. The above report was generated using voice recognition software. It may contain grammatical, syntax or spelling errors. Electronically signed by: Juan Jose Boss M.D. 12/18/2023 4:[address] 12/18/23 15:38 CT cervical spine wo con CLINICAL HISTORY: 88 years-old Female with fall. Acute neck injury status post fall COMPARISON: Head CT of same day, CT cervical spine 08/30/2023 TECHNIQUE: Multiple axial CT images of the cervical spine were obtained without contrast. A dose lowering technique was utilized adhering to the principles of ALARA. FINDINGS: Demineralized appearance of the bones with multilevel degenerative changes redemonstrated. No acute fracture or subluxation is identified. Thyroid goiter. Intralobular septal thickening of the lungs. Small right mastoid effusion. No pneumothorax. IMPRESSION: No acute cervical spine fracture or subluxation identified. ACT 112: Negative or not required by law. The above report was generated using voice recognition software. It may contain grammatical, syntax or spelling errors. Electronically signed by: Juan Jose Boss M.D. 12/18/2023 4:[address] 12/18/23 15:38 CT head/brain wo con CLINICAL HISTORY: 88 years-old Female with fall. Acute head trauma status post fall TECHNIQUE: Multiple axial CT images of the head were obtained without contrast. A dose lowering technique was utilized adhering to the principles of ALARA. CT DOSE: 1466.24 mGy.cm COMPARISON: None. FINDINGS: No acute intracranial hemorrhage, midline shift, intra-axial mass, hydrocephalus, territorial ischemia or abnormal extra-axial collection. Involutional changes with chronic microvascular ischemic disease. Cerebral vascular calcifications. Unchanged 7 mm ossification adjacent to the posterior right superior cerebrum on image 25 series 2. The calvarium is intact. The paranasal sinuses, mastoid air cells, and middle ear cavities are clear. IMPRESSION: No acute intracranial abnormality. ACT 112: Negative or not required by law. The above report was generated using voice recognition software. It may contain grammatical, syntax or spelling errors. Electronically signed by: Juan Jose Boss M.D. 12/18/2023 4:28 PM ECG Data Attestation: I personally reviewed and interpreted this ECG as follows: Rate (beats per minute): 81 Rhythm: + atrial flutter ECG Intervals/blocks: + Normal QRS and + Normal QT-c ECG ST segments: + Normal ST segments [facility] Narrative 1522: The patient was evaluated in room C2. A complete history and physical exam was performed Cardiac monitoring: An order was placed for continuous cardiac monitoring. The monitor shows a rate of 80 with atrial flutter rhythm interpreted by or Trauma alert paged as the patient is on Eliquis. 1535: X-ray shows right femoral neck fracture. 1737: Vital signs stable. Labs are unremarkable. Imaging shows no other traumatic injuries other than the right femoral neck fracture. Discussed case with Dr. Kennedy Daniels orthopedics on-call he states to admit to medicine hold [facility]. Spoke with Dr. Yamel Daniels hospitalist who states she will admit to their service. Impression & Plan Closed right hip fracture Discharge Plan Visit Data Chief Complaint: Trauma Stated Complaint: FELL THIS AM, R HIP PAIN ED Provider: Mele Washburn Discharge Problem: Closed right hip fracture Patient Disposition: Admitted As Inpatient Discharge Instructions Interventions: ED Discharge Assessment Last Done: 12/18/23 18:51 Discharge Problem: Closed right hip fracture Qualifiers: Encounter type: initial encounter Qualified Code(s): S72.001A - Fracture of unspecified part of neck of right femur, initial encounter for closed fracture
[2023-12-18 15:43] LABS: Basophils # (auto) 0.03 K/uL (0.00-0.20); Basophils % (auto) 0.3 %; Eosinophils # (auto) 0.08 K/uL (0.00-0.50); Eosinophils % (auto) 0.7 %; Hematocrit (blood only) 38.6 % (37.0-47.0); Hemoglobin 12.6 g/dl (12.0-16.0); Immature Granulocytes % (auto) 0.9 %; Lymphocytes # (auto) 0.97 K/uL (1.20-3.40); Mean Corpuscular Hemoglobin 30.5 pg (25.0-34.0); Mean Corpuscular Hgb Conc 32.6 g/dL (32.0-36.0); Mean Corpuscular Volume 93.5 fL (80.0-100.0); Mean Platelet Volume 11.6 fL (9.4-12.4); Monocytes # (auto) 0.65 K/uL (0.11-0.59); Neutrophils # (auto) 8.98 K/uL (1.40-6.50); Neutrophils % (auto) 83.1 %; Platelet Count 271 K/uL (130-400); RDW Coefficient of Variation 13.4 % (11.5-14.5); RDW Standard Deviation 45.7 fL (36.4-46.3); Red Blood Count 4.13 M/uL (4.20-5.40); White Blood Count 10.81 K/ul (4.8-10.8)
[2023-12-18] MEDS ORDERED: MoRPHine SULFATE 2 MG/ML CARP IV PRN (15:52)
--- NOTE | 2023-12-18 15:56 | XRay Report ---
XR pelvis 1-2V routine, XR femur RT 2V routine HISTORY: 88 years-old Female fall acute pain of the pelvis and right hip status post fall COMPARISON: None TECHNIQUE: AP view the pelvis with one view of the right femur FINDINGS: PELVIS: Moderate osteoarthritis of the hips. Demineralized appearance of the bones. Arterial calcific ations. Acute proximal right femoral fracture as below. FEMUR: There is an acute and impacted fracture of the right femoral neck which appears transcervical demonstrating superior displacement of approximately 1.6 cm. No dislocation. Moderate soft tissue swe lling. IMPRESSION: Acute impacted and displaced transcervical right femoral fracture. ACT 112: Negative or not required by law. The above report was generated using voice recognition software. It may contain grammatical, syntax o r spelling errors. Electronically signed by: Juan Jose Boss M.D. 12/18/2023 3:55 PM
[2023-12-18 15:57] LABS: BUN Creatinine Ratio 13.1 (10-20); Calcium 9.9 mg/dl (8.6-10.3); Creatinine Clr Calc Pharmacy 25.4 ml/min; Est GFR (Non-African American) 37.1 ml/min; Potassium 4.2 mmol/L (3.5-5.1)
[2023-12-18 16:10] LABS: INR 1.1 (0.9-1.1); Partial Thromboplastin Ratio 0.9; Partial Thromboplastin Time 24 Seconds (21-31)
[2023-12-18] MEDS: OPTIRAY 320 100ml IV ONE (16:24)
--- NOTE | 2023-12-18 16:31 | CT Scan Report ---
CT head/brain wo con CLINICAL HISTORY: 88 years-old Female with fall. Acute head trauma status post fall TECHNIQUE: Multiple axial CT images of the head were obtained without contrast. A dose lowering tech nique was utilized adhering to the principles of ALARA. CT DOSE: 1466.24 mGy.cm COMPARISON: None. FINDINGS: No acute intracranial hemorrhage, midline shift, intra-axial mass, hydrocephalus, territorial ischemi a or abnormal extra-axial collection. Involutional changes with chronic microvascular ischemic diseas e. Cerebral vascular calcifications. Unchanged 7 mm ossification adjacent to the posterior right supe rior cerebrum on image 25 series 2. The calvarium is intact. The paranasal sinuses, mastoid air cells, and middle ear cavities are clear . IMPRESSION: No acute intracranial abnormality. ACT 112: Negative or not required by law. The above report was generated using voice recognition software. It may contain grammatical, syntax o r spelling errors. Electronically signed by: Juan Jose Boss M.D. 12/18/2023 4:28 PM
--- NOTE | 2023-12-18 16:32 | CT Scan Report ---
CT cervical spine wo con CLINICAL HISTORY: 88 years-old Female with fall. Acute neck injury status post fall COMPARISON: Head CT of same day, CT cervical spine 08/30/2023 TECHNIQUE: Multiple axial CT images of the cervical spine were obtained without contrast. A dose low ering technique was utilized adhering to the principles of ALARA. FINDINGS: Demineralized appearance of the bones with multilevel degenerative changes redemonstrated. No acute fracture or subluxation is identified. Thyroid goiter. Intralobular septal thickening of the lungs. Small right mastoid effusion. No pneumothorax. IMPRESSION: No acute cervical spine fracture or subluxation identified. ACT 112: Negative or not required by law. The above report was generated using voice recognition software. It may contain grammatical, syntax o r spelling errors. Electronically signed by: Juan Jose Boss M.D. 12/18/2023 4:31 PM
[2023-12-18] MEDS: MoRPHine SULFATE 4 MG/ML 1 ML CARP\\VIAL IV PRN (16:35)
--- NOTE | 2023-12-18 16:55 | CT Scan Report ---
ABDOMEN AND PELVIS CT WITH IV CONTRAST HISTORY: Acute abdominal trauma status post fall fall TECHNIQUE: Multiaxial CT images of the abdomen and pelvis were performed following the IV administrat ion of 91 cc of Optiray, A dose lowering technique was utilized adhering to the principles of ALARA. COMPARISON STUDY: Right femur radiographs of same day. FINDINGS: Cardiomegaly with dense mitral annular and annular calcifications. Mild bibasilar atelectas is. No free air. Unremarkable spleen, moderately atrophic pancreas and liver. Patent hepatic and port al veins. Thickening of the adrenal glands suggestive of hyperplasia. Filling defects in the gallblad josi lumen suggestive of tumefactive sludge versus cholelithiasis. There are a few cysts noted within the kidneys. 4 mm nonobstructing right renal calculus. 4 mm calcul us at the interpolar left kidney. No ureteral calculi or hydronephrosis. Pelvic basin phleboliths. De compressed urinary bladder. Atherosclerosis of the aorta. No lymphadenopathy. No retroperitoneal hemo rrhage identified. Mild distal esophageal wall thickening. Duodenal diverticulum. No bowel obstructio n or bowel wall thickening. No free fluid. Colonic diverticulosis. The appendix is not well visualize d. Degenerative changes of the spine, pelvis and hips. Chronic right-sided rib fractures. Nondisplace d left sacral insufficiency fracture with marginal sclerosis. Acute comminuted, impacted and mildly d isplaced right femoral neck fracture. Healing subacute left pelvic ring fractures with healing sclero sis. IMPRESSION: 1. Acute, comminuted, mildly angulated, displaced and impacted right femoral neck fracture. 2. Healing subacute nondisplaced left sacral and pelvic ring fracture deformities. 3. No evidence of acute solid organ injury. 4. Nonobstructing bilateral nephrolithiasis. 5. Gallbladder sludge versus cholelithiasis. 6. Additional findings as above. ACT 112: Negative or not required by law. The above report was generated using voice recognition software. It may contain grammatical, syntax o r spelling errors. Electronically signed by: Juan Jose Boss M.D. 12/18/2023 4:53 PM
--- NOTE | 2023-12-18 17:00 | XRay Report ---
XR chest 1V portable HISTORY: 88 years-old Female fall acute chest trauma status post fall COMPARISON: None TECHNIQUE: AP view the chest FINDINGS: Cardiac silhouette is enlarged. Mitral annular calcifications. No pneumothorax, pleural effusion or a irspace consolidation. Bones appear grossly intact. Chronic appearing left proximal humeral fracture deformity. IMPRESSION: Cardiomegaly without acute process. ACT 112: Negative or not required by law. The above report was generated using voice recognition software. It may contain grammatical, syntax o r spelling errors. Electronically signed by: Juan Jose Boss M.D. 12/18/2023 4:59 PM
--- NOTE | 2023-12-18 17:39 | History & Physical Report ---
<Statement entered by Pascale House MD - 12/18/23 19:31> 88 y/o with afib/flutter, moderate aortic stenosis, diabetes who fell when her partially locked wheelchair rolled away, sustaining right hip fracture Recently she was admitted for L humerus fracture and pelvic fracture after a fall and was found to have afib/flutter Her family reports she was admitted at [facility] 3 weeks ago and was cardioverted, had medication adjustments pain currently controlled with morphine on my exam AOx4, family in room, appears comfortable heart regularly irregular with systolic crescendo/decrescendo murmur lungs CTAB nonlabored abd s/nt/nd +BT RLE rotated and foreshortened, no thigh swelling or ecchymosis, foot wwp and DP pulse intact. No LE edema Plan: Osteoporotic right hip fracture - consulted Dr. Benavides. Pain control Afib/flutter Hold apixaban (last dose was this AM). This will be cleared in 48h from last dose (Wednesday) at that time okay to proceed to OR -consider bridging anticoagulation starting tomorrow AM with dose of enoxaparin or heparin drip. [id number] is 4. -continue rate control meds She has asymptomatic moderate , no hx chest pain CHF or syncope. Anesthesiologist should be aware and caution with fluid shifts and vasodilators Agree with documentation below by Kevon Morrow PA-C Date of Service December 18, 2023 Assessment & Plan (1) Closed right hip fracture: Plan: Admit to med telemetry on pulse oximetry Currently stable, nontoxic-appearing, and with symptoms currently under control at rest Presented to the ED after experiencing a fall while trying to transfer from a chair to her wheelchair, she fell after her wheelchair slid away Did not hit her head or lose consciousness, no symptoms prior to the fall suggest different pathology such as neurologic or cardiac Extensive imaging obtained on arrival shows an Acute, comminuted, mildly angulated, displaced and impacted right femoral neck fracture. No current signs of active bleeding on exam Orthopedic surgery has been consulted and will follow for eventual surgical fixation, but will need to wait approximately 48 hours due to patient taking her a.m. dose of Eliquis Pain control with scheduled Tylenol, as needed morphine, ice, lidocaine patch Will order [id number] mattress as she will have to remain in bed until surgical fixation Hold chemical DVT prophylaxis for now until we can confirm she is without signs of bleeding, bilateral SCDs for now Heart healthy/DM type II diet, aspiration precautions Fall precautions PT/OT consulted and placed AM CBC, CMP, mag, PT/INR (2) Atrial fibrillation: Plan: ECG on arrival showed atrial flutter, on exam she is currently in atrial fibrillation Holding Eliquis at this time due to ventral OR plans We will hold anticoagulation tonight to reduce her risk of bleeding with recent trauma. Can discuss anticoagulation with the patient tomorrow based on risk versus benefit discussion Continue metoprolol, diltiazem, and every other day digoxin Will obtain a.m. dig level daily (3) Fall: Plan: See close right hip fracture (4) Diabetes: Plan: Monitor BSG ACHS, goal is [id number] Holding basal insulin at this time as she is not on a basal bolus regimen at home Will start with CF of 50 ACHS for now as this is what she had been on during previous admissions No carb ratio at this time Adjust regimen as Plan The patient was discussed with Dr. House at the time of the admission History of Present Illness Chief Complaint: Fall, right hip pain Primary Care Provider: Keesha Younger MD Alicia is an 88-year-old female with a past medical history significant for atrial fibrillation (on Eliquis), DMII, recurrent falls, GERD, anemia, and osteoporosis who presented to [facility] ED on 12/18/2023 due to right hip pain after falling off a chair at home. On arrival to the ED she was noted to be tachycardic with heart rate of 104 but otherwise stable. Labs were significant for leukocytosis of 10 with neutrophil predominance of 8, creatinine of 1.30 (baseline is near 1.0). CT of the head and brain without contrast, cervical spine CT, and chest x-ray were read as negative for acute findings. CT of the abdomen pelvis with IV contrast showed an acute comminuted, mildly angulated, displaced and impacted right femoral neck fracture. Healing subacute nondisplaced left sacral and pelvic ring fracture deformities. Gall bladder sludge versus cholelithiasis but otherwise without acute findings. X- ray of the pelvis and right femur confirmed findings of the CT of the abdomen pelvis with contrast. Orthopedics was consulted and will follow with eventual plans for OR but patient will need to be off Eliquis for approximately 48 hours. Prior to admission the patient was given 4 mg IV morphine. Patient was lying in bed in no acute distress at the time exam with her nephew (Phani Salomon) and his (Sade Salomon) sitting bedside, history is obtained from all. The patient states that she was at a casino earlier today at a slot machine. She attempted to transition herself from the slot machine chair to her wheelchair but states that she must have forgotten to put one of the brakes on her wheelchair on. As she stood and put weight on her wheelchair it gave way causing her to fall to the ground, landing on her right side. She denies hitting her head or losing consciousness. Denies symptoms prior to her fall such as lightheadedness, dizziness, chest pain, shortness of breath, palpitations, paresthesias, or unilateral weakness. Her only pain at this time is right hip pain with any movement. She confirms that she had her a.m. dose of Eliquis, Sade explains that the patient is due for her afternoon dose of metoprolol. Patient denies recent fever, chills, chest pain, shortness of breath, cough, abdominal pain, nausea/vomiting, dysuria, hematuria, increased urinary frequency, diarrhea, or lower extremity swelling. We discussed CODE STATUS, the patient has a living will and is a DNR/DNI. If the patient cannot make decisions herself she clearly stated that she would want Phani Salomon and his Sade Salomon, who are bedside, to make medical decisions for her as they know her wishes. Please refer to Dr. House's attestation for any changes to the treatment plan. Allergies Allergy/AdvReac Type Severity Reaction Status Date / Time No Known Allergies Allergy Unverified 12/18/23 17:51 Home Medications Medication Instructions Recorded Confirmed Type apixaban 2.5 mg tablet (Eliquis) 2.5 mg PO BID 08/30/23 12/18/23 History atorvastatin 10 mg tablet 10 mg PO QAM 08/30/23 12/18/23 History diltiazem HCl 240 mg 240 mg PO QAM 08/30/23 12/18/23 History capsule,extended release 24 hr, controlled (DILT-XR) omeprazole 20 mg capsule,delayed 20 mg PO DAILYBB 08/30/23 12/18/23 History release acetaminophen 500 mg tablet 1,000 mg (2 x 500 mg) PO Q8H PRN 09/06/23 12/18/23 Rx (Tylenol Extra Strength) pain #10 tabs cholecalciferol (vitamin D3) 125 125 mcg PO QAM #30 tabs 09/06/23 12/18/23 Rx mcg (5,000 unit) tablet cyanocobalamin (vitamin B-12) 500 1,000 mcg (2 x 500 mcg) PO QAM #30 09/06/23 12/18/23 Rx mcg tablet tabs digoxin 125 mcg (0.125 mg) tablet 125 mcg PO Q OTHER DAY 12/18/23 12/18/23 History magnesium oxide 400 mg (241.3 mg 800 mg PO QAM 12/18/23 12/18/23 History magnesium) tablet metoprolol tartrate 25 mg tablet 25 mg PO TID 12/18/23 12/18/23 History Past Med/Surg History Problem List (Updated 12/18/23 @ 18:08 by Kevon Morrow PA-C) Closed right hip fracture Fall Aortic stenosis Anemia Closed fracture of left proximal humerus Murmur Age-related osteoporosis with current pathological fracture Closed fracture of pubic ramus (Acute) Fracture of left inferior pubic ramus Atrial fibrillation with rapid ventricular response Anterior subluxation of shoulder (Acute) Closed left humeral fracture (Acute) Hyperlipidemia GERD (gastroesophageal reflux disease) Diabetes Medical History Atrial fibrillation Atrial flutter Surgical History H/O: hysterectomy Social History Smoking Status: Never smoker Hx Alcohol Use: No Hx Substance Use: No Preferred Language: Setswana Communication Ability: Effective Hearing Ability: Normal 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[employer] 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: No Beliefs That Will Affect Care: None Current Living Situation: Alone current occupational status: retired Feels Safe at Home: Yes Assistive Devices: None Physical Exam Physical Exam: Physical Exam: General: In no acute distress, stated age, non-toxic appearing HEENT: Normocephalic, atraumatic, no scleral icterus, pupils around round, symmetrical, and reactive to light, dry mucus membranes, trachea midline, no thyromegaly Chest/Pulm: No respiratory distress, symmetrical chest expansion, clear breat h sounds throughout Cardiac: irregular rate and rhythm, 3/6 systolic murmur noted Abdomen: Negative for ascites and bruising, normoactive bowel sounds, soft, non-tender to palpation throughout : Wheatley catheter is in place and draining clear, yellow urine Musculoskeletal: RLE is currently shortened and externally rotated, otherwise no acute trauma noted on exam Extremities: Radial, dorsalis pedis, and posterior tibial pulses are intact and symmetrical, no edema noted in the BL LE's Skin: No signs of bruising or bleeding on inspection of the chest, abdomen, pelvis, or BL LE's Neuro: Alert and oriented to person, place, month, year, and president, no focal defects, no tremors noted Psych: No acute distress, calm and cooperative during the exam Results & Data Results & Data Vital Signs (Past 12 Hours) Vital Signs Temp Pulse Resp BP BP Pulse Ox O2 Del Method 12/18/23 17:00 76 15 94 12/18/23 16:48 83 12 115/76 94 12/18/23 16:00 105/67 12/18/23 15:58 69 12/18/23 15:52 88 93 Room Air 12/18/23 15:29 104/86 12/18/23 15:29 Room Air 12/18/23 15:10 36.4 C L 104 H 18 113/73 100 Room Air O2 Flow Rate 12/18/23 17:00 12/18/23 16:48 12/18/23 16:00 12/18/23 15:58 12/18/23 15:52 12/18/23 15:29 12/18/23 15:29 94 12/18/23 15:10 Laboratory Results Abnormal lab results 12/18/23 Range/Units 15:22 WBC 10.81 H (4.8-10.8) K/ul RBC 4.13 L (4.20-5.40) M/uL Neut # (Auto) 8.98 H (1.40-6.50) K/uL Lymph # (Auto) 0.97 L (1.20-3.40) K/uL [place] # (Auto) 0.65 H (0.11-0.59) K/uL Anion Gap 12 H (3-11) Creatinine 1.30 H (0.6-1.2) mg/dl Glucose 161 H (70-99(Fasting)) mg/dl Diagnostic Findings Chest X-Ray 12/18/23 15:30 XR chest 1V portable HISTORY: 88 years-old Female fall acute chest trauma status post fall COMPARISON: None TECHNIQUE: AP view the chest FINDINGS: Cardiac silhouette is enlarged. Mitral annular calcifications. No pneumothorax, pleural effusion or airspace consolidation. Bones appear grossly intact. Chronic appearing left proximal humeral fracture deformity. IMPRESSION: Cardiomegaly without acute process. ACT 112: Negative or not required by law. The above report was generated using voice recognition software. It may contain grammatical, syntax or spelling errors. Electronically signed by: Juan Jose Boss M.D. 12/18/2023 4:59 PM Femur X-Ray 12/18/23 15:30 XR pelvis 1-2V routine, XR femur RT 2V routine HISTORY: 88 years-old Female fall acute pain of the pelvis and right hip status post fall COMPARISON: None TECHNIQUE: AP view the pelvis with one view of the right femur FINDINGS: PELVIS: Moderate osteoarthritis of the hips. Demineralized appearance of the bones. Arterial calcifications. Acute proximal right femoral fracture as below. FEMUR: There is an acute and impacted fracture of the right femoral neck which appears transcervical demonstrating superior displacement of approximately 1.6 cm. No dislocation. Moderate soft tissue swelling. IMPRESSION: Acute impacted and displaced transcervical right femoral fracture. ACT 112: Negative or not required by law. The above report was generated using voice recognition software. It may contain grammatical, syntax or spelling errors. Electronically signed by: Juan Jose Boss M.D. 12/18/2023 3:55 PM Pelvis X-Ray 12/18/23 15:30 XR pelvis 1-2V routine, XR femur RT 2V routine HISTORY: 88 years-old Female fall acute pain of the pelvis and right hip status post fall COMPARISON: None TECHNIQUE: AP view the pelvis with one view of the right femur FINDINGS: PELVIS: Moderate osteoarthritis of the hips. Demineralized appearance of the bones. Arterial calcifications. Acute proximal right femoral fracture as below. FEMUR: There is an acute and impacted fracture of the right femoral neck which appears transcervical demonstrating superior displacement of approximately 1.6 cm. No dislocation. Moderate soft tissue swelling. IMPRESSION: Acute impacted and displaced transcervical right femoral fracture. ACT 112: Negative or not required by law. The above report was generated using voice recognition software. It may contain grammatical, syntax or spelling errors. Electronically signed by: Juan Jose Boss M.D. 12/18/2023 3:55 PM Abdomen/Pelvis CT 12/18/23 15:[address] WITH IV CONTRAST HISTORY: Acute abdominal trauma status post fall fall TECHNIQUE: Multiaxial CT images of the abdomen and pelvis were performed following the IV administration of 91 cc of Optiray, A dose lowering technique was utilized adhering to the principles of ALARA. COMPARISON STUDY: Right femur radiographs of same day. FINDINGS: Cardiomegaly with dense mitral annular and annular calcifications. Mild bibasilar atelectasis. No free air. Unremarkable spleen, moderately atrophic pancreas and liver. Patent hepatic and portal veins. Thickening of the adrenal glands suggestive of hyperplasia. Filling defects in the gallbladder lumen suggestive of tumefactive sludge versus cholelithiasis. There are a few cysts noted within the kidneys. 4 mm nonobstructing right renal calculus. 4 mm calculus at the interpolar left kidney. No ureteral calculi or hydronephrosis. Pelvic basin phleboliths. Decompressed urinary bladder. Atherosclerosis of the aorta. No lymphadenopathy. No retroperitoneal hemorrhage identified. Mild distal esophageal wall thickening. Duodenal diverticulum. No bowel obstruction or bowel wall thickening. No free fluid. Colonic diverticulosis. The appendix is not well visualized. Degenerative changes of the spine, pelvis and hips. Chronic right-sided rib fractures. Nondisplaced left sacral insufficiency fracture with marginal sclerosis. Acute comminuted, impacted and mildly displaced right femoral neck fracture. Healing subacute left pelvic ring fractures with healing sclerosis. IMPRESSION: 1. Acute, comminuted, mildly angulated, displaced and impacted right femoral neck fracture. 2. Healing subacute nondisplaced left sacral and pelvic ring fracture deformities. 3. No evidence of acute solid organ injury. 4. Nonobstructing bilateral nephrolithiasis. 5. Gallbladder sludge versus cholelithiasis. 6. Additional findings as above. ACT 112: Negative or not required by law. The above report was generated using voice recognition software. It may contain grammatical, syntax or spelling errors. Electronically signed by: Juan Jose Boss M.D. 12/18/2023 4:[address] 12/18/23 15:38 CT cervical spine wo con CLINICAL HISTORY: 88 years-old Female with fall. Acute neck injury status post fall COMPARISON: Head CT of same day, CT cervical spine 08/30/2023 TECHNIQUE: Multiple axial CT images of the cervical spine were obtained without contrast. A dose lowering technique was utilized adhering to the principles of ALARA. FINDINGS: Demineralized appearance of the bones with multilevel degenerative changes redemonstrated. No acute fracture or subluxation is identified. Thyroid goiter. Intralobular septal thickening of the lungs. Small right mastoid effusion. No pneumothorax. IMPRESSION: No acute cervical spine fracture or subluxation identified. ACT 112: Negative or not required by law. The above report was generated using voice recognition software. It may contain grammatical, syntax or spelling errors. Electronically signed by: Juan Jose Boss M.D. 12/18/2023 4:[address] 12/18/23 15:38 CT head/brain wo con CLINICAL HISTORY: 88 years-old Female with fall. Acute head trauma status post fall TECHNIQUE: Multiple axial CT images of the head were obtained without contrast. A dose lowering technique was utilized adhering to the principles of ALARA. CT DOSE: 1466.24 mGy.cm COMPARISON: None. FINDINGS: No acute intracranial hemorrhage, midline shift, intra-axial mass, hydrocephalus, territorial ischemia or abnormal extra-axial collection. Involutional changes with chronic microvascular ischemic disease. Cerebral vascular calcifications. Unchanged 7 mm ossification adjacent to the posterior right superior cerebrum on image 25 series 2. The calvarium is intact. The paranasal sinuses, mastoid air cells, and middle ear cavities are clear. IMPRESSION: No acute intracranial abnormality. ACT 112: Negative or not required by law. The above report was generated using voice recognition software. It may contain grammatical, syntax or spelling errors. Electronically signed by: Juan Jose Boss M.D. 12/18/2023 4:28 PM ECG Additional Comments: Atrial flutter with variable A-V block ST & T wave abnormality, consider inferolateral ischemia Abnormal ECG When compared with ECG of 30-AUG-2023 14:03, Atrial flutter has replaced Atrial fibrillation Inverted T waves have replaced nonspecific T wave abnormality in Lateral leads Code Status & VTE Plan Code Status DNR/DNI VTE Prophylaxis Plan VTE Prophylaxis will be ordered: Yes PG Care Time/CCT Total # of Minutes Spent Total Time Spent with Patient: Total time spent is greater than 50% in coordination of care (as documented) at patient's floor/unit and/or counseling patient: Coding [place] [address] INT INP/OBS CARE 2/55MIN Patient Type Established History Comprehensive Exam Comprehensive Medical Decision Making Moderate Complexity Diagnoses Closed right hip fracture S72.001A Atrial fibrillation I48.91 Fall W19.XXXA Diabetes E11.9
[2023-12-18] MEDS ORDERED: CARBOHYDRATES FOR HYPOGLYCEMIA PO PRN (17:43)
[2023-12-18] MEDS ORDERED: GLUCOSE 40% GEL 15 GM TUBE PO PRN (17:43)
[2023-12-18] MEDS ORDERED: GLUCAGON FOR INJ 1 MG VIAL SQ PRN (17:43)
[2023-12-18] MEDS ORDERED: GLUCOSE 10 TAB/TUBE PO PRN (17:43)
[2023-12-18] MEDS ORDERED: DEXTROSE 50% 50 ML SYRINGE IV PRN (17:43)
[2023-12-18] MEDS ORDERED: NALOXONE HCL 0.4 MG/1 ML VIAL/CARP IV PRN (17:59)
[2023-12-18] MEDS ORDERED: MAGNESIUM HYDROXIDE SUSP 30 ML UDC PO PRN (17:59)
[2023-12-18] MEDS ORDERED: bisacodyL 10 MG SUPP PR PRN (17:59)
[2023-12-18 18:25] LABS: Magnesium 2.2 mg/dl (1.7-2.4)
[2023-12-18 18:41] LABS: Appearance Urine Clear (Clear); Bacteria Urine Automated None Seen (None Seen); Bilirubin Urine Negative (Negative); Blood Urine Negative (Negative); Color Urine Yellow; Epithelial Cell Urine Auto 0-2 /hpf (0-2); Glucose Urine UA Negative (Negative); Ketones Urine 1+ (Negative); Leukocyte Esterase Urine Negative (Negative); Nitrite Urine Negative (Negative); Protein Urine Trace (Negative); RBC Urine Automated 0-2 /hpf (0-2); Specific Gravity Urine > 1.045 (1.000-1.030); Urobilinogen Urine Negative (Negative); WBC Urine Automated 0-5 /hpf (0-5)
[2023-12-18] MEDS: ACETAMINOPHEN 325 MG TAB PO SCH (18:58)
[2023-12-18] MEDS: LIDOCAINE 5% 1 PATCH TD STA (18:59)
[2023-12-18] MEDS: METOPROLOL TARTRATE 25 MG TAB PO STA (18:59)
[2023-12-18] MEDS: ACETAMINOPHEN 500 MG TAB PO STA (19:00)
[2023-12-18] MEDS: LACTATED RINGER'S 500 ML IV ONE (19:27)
[2023-12-18] MEDS: INSULIN ASPART PER UNIT CHARGE SC SCH (21:38)
[2023-12-19] MEDS: METOPROLOL TARTRATE 25 MG TAB PO SCH (00:29)
[2023-12-19 05:25] LABS: Basophils # (auto) 0.02 K/uL (0.00-0.20); Basophils % (auto) 0.3 %; Eosinophils # (auto) 0.16 K/uL (0.00-0.50); Eosinophils % (auto) 2.2 %; Hematocrit (blood only) 32.5 % (37.0-47.0); Hemoglobin 10.6 g/dl (12.0-16.0); Immature Granulocytes # (auto) 0.05 K/uL (0.01-0.20); Immature Granulocytes % (auto) 0.7 %; Lymphocytes % (auto) 12.2 %; Mean Corpuscular Hemoglobin 30.6 pg (25.0-34.0); Mean Corpuscular Hgb Conc 32.6 g/dL (32.0-36.0); Mean Corpuscular Volume 93.9 fL (80.0-100.0); Mean Platelet Volume 11.8 fL (9.4-12.4); Monocytes # (auto) 0.69 K/uL (0.11-0.59); Monocytes % (auto) 9.4 %; Neutrophils # (auto) 5.54 K/uL (1.40-6.50); Neutrophils % (auto) 75.2 %; Platelet Count 196 K/uL (130-400); RDW Coefficient of Variation 13.7 % (11.5-14.5); RDW Standard Deviation 46.5 fL (36.4-46.3); Red Blood Count 3.46 M/uL (4.20-5.40); White Blood Count 7.36 K/ul (4.8-10.8)
[2023-12-19 05:49] LABS: INR 1.1 (0.9-1.1); Prothrombin Time 11.8 Seconds (9.0-12.0)
[2023-12-19 05:53] LABS: Albumin Globulin Ratio 1.3 (0.9-2); Albumin Level 3.6 gm/dl (3.4-5.0); BUN Creatinine Ratio 15.8 (10-20); Bilirubin,Total 0.6 mg/dl (0.2-1.0); Calcium 8.7 mg/dl (8.6-10.3); Creatinine Clr Calc Pharmacy 34.7 ml/min; Est GFR (African American) 62.9 ml/min; Est GFR (Non-African American) 54.2 ml/min; Globulin 2.7 gm/dl (2.5-4.0); Magnesium 1.9 mg/dl (1.7-2.4); Potassium 3.9 mmol/L (3.5-5.1); Total Protein 6.3 gm/dl (6.0-8.3)
[2023-12-19] MEDS: PANTOprazole 40 MG TAB PO SCH (06:06)
--- NOTE | 2023-12-19 07:49 | Orthopedic Consultation ---
Date of Consultation December 19, 2023 Assessment & Plan (1) Closed right hip fracture: The patient is a 88 year old female who sustained a right hip fracture from a ground level fall attempting to sit in a wheel [place] a [place] in [place]. The patients treatment options of conservative versus surgical intervention were discussed. Since the patient is in significant pain and wants to avoid the risks of bed sores, pulmonary complications, and to give the best chance for any mobility, she wished to proceed with surgery. The patient understands the risks of surgery, which include but are not limited to: bleeding, infection, re-operation, damage to nerves and arteries, continued pain, failure of the hardware, mal-union, non-union, DVT, and . In addition the patient is aware of the 20-30% morbidity associated with hip fracture for up to 1 year following a hip fracture. The patient has elected to proceed with surgery and the informed consent was signed. The patient understands all of these instructions and explanations, all of their questions have been satisfactorily addressed. Placed on the add-on schedule Wednesday as last dose of Eliquis was yesterday AM, and will proceed if medically stable. Patient may eat now from an ortho standpoint, but will be NPO after midnight prior to surgery. The patient will be NWB. TEDs and foot pumps to LLE. Antibiotics and TXA sustainable design consultant to OR. Present on Admission?: Yes History of Present Illness Reason for Consultation: Right hip fracture Requesting Physician: Ramiro Benavides MD Attending Physician: Pascale House MD History of Present Illness 88 yo female who fell getting into a wheel [place] a [place] in [place] 12/18/27 injuring her right hip. She is an ambulator, but has been using a wheel chair when there has been no assistance since another fall resulting in shoulder fracture. She came to the ED where x-rays and CT where obtained. She has been admitted to Hospitalist service, her Eliquis which she last took 12/18/23 in the AM has been held. I was consulted for further evaluation and treatment of her right hip fracture. Allergies Allergy/AdvReac Type Severity Reaction Status Date / Time No Known Allergies Allergy Unverified 12/18/23 17:51 Home Medications Medication Instructions Recorded Confirmed Type apixaban 2.5 mg tablet (Eliquis) 2.5 mg PO BID 08/30/23 12/18/23 History atorvastatin 10 mg tablet 10 mg PO QAM 08/30/23 12/18/23 History diltiazem HCl 240 mg 240 mg PO QAM 08/30/23 12/18/23 History capsule,extended release 24 hr, controlled (DILT-XR) omeprazole 20 mg capsule,delayed 20 mg PO DAILYBB 08/30/23 12/18/23 History release acetaminophen 500 mg tablet 1,000 mg (2 x 500 mg) PO Q8H PRN 09/06/23 12/18/23 Rx (Tylenol Extra Strength) pain #10 tabs cholecalciferol (vitamin D3) 125 125 mcg PO QAM #30 tabs 09/06/23 12/18/23 Rx mcg (5,000 unit) tablet cyanocobalamin (vitamin B-12) 500 1,000 mcg (2 x 500 mcg) PO QAM #30 09/06/23 12/18/23 Rx mcg tablet tabs amiodarone 200 mg tablet See Rx Instructions .Route .COMPLEX 12/18/23 12/18/23 History digoxin 125 mcg (0.125 mg) tablet 125 mcg PO Q OTHER DAY 12/18/23 12/18/23 History magnesium oxide 400 mg (241.3 mg 800 mg PO QAM 12/18/23 12/18/23 History magnesium) tablet metoprolol tartrate 25 mg tablet 25 mg PO TID 12/18/23 12/18/23 History semaglutide 3 mg tablet (Rybelsus) 3 mg PO QAM 12/18/23 12/18/23 History Patient History Medical History Atrial fibrillation Atrial flutter Surgical History H/O: hysterectomy Social History Smoking Status: Never smoker Hx Alcohol Use: No Hx Substance Use: No Preferred Language: Chinese Communication Ability: Effective Hearing Ability: Normal Strategy Analyst Required: No Beliefs That Will Affect Care: None Current Living Situation: Alone current occupational status: retired Feels Safe at Home: Yes Safety Concerns: Feels Safe At This Time Assistive Devices: Cane Review of Systems Review of Systems: All systems reviewed & are unremarkable except as noted in HPI & below Physical Exam Physical Exam: RLE: Sensation to light touch intact distally. Wiggling toes and ankle. 1+ PT pulse. + Log Roll hip Results & Data Vital Signs (Past 12 Hours) Vital Signs Pulse Pulse Resp BP Pulse Ox O2 Del Method 12/19/23 07:00 68 20 104/66 98 Room Air 12/19/23 06:00 68 21 93/73 L 98 Room Air 12/19/23 05:00 69 17 100/63 95 Room Air 12/19/23 04:00 75 18 101/57 L 94 Room Air 12/19/23 03:00 63 19 102/63 93 Room Air 12/19/23 02:00 63 19 98/66 L 95 Room Air 12/19/23 01:00 63 18 112/79 97 Room Air 12/19/23 00:00 65 18 98/61 L 95 Room Air 12/18/23 23:58 61 12/18/23 20:00 78 13 97 Laboratory Results Laboratory Results WBC 7.36 K/ul (4.8-10.8) 12/19/23 04:49 RBC 3.46 M/uL (4.20-5.40) L 12/19/23 04:49 Hgb 10.6 g/dl (12.0-16.0) L 12/19/23 04:49 Hct 32.5 % (37.0-47.0) L 12/19/23 04:49 MCV 93.9 fL (80.0-100.0) 12/19/23 04:49 MCH 30.6 pg (25.0-34.0) 12/19/23 04:49 MCHC 32.6 g/dL (32.0-36.0) 12/19/23 04:49 RDW Std Deviation 46.5 fL (36.4-46.3) H 12/19/23 04:49 RDW Coeff of Joshua 13.7 % (11.5-14.5) 12/19/23 04:49 Plt Count 196 K/uL (130-400) 12/19/23 04:49 MPV 11.8 fL (9.4-12.4) 12/19/23 04:49 Immature Gran % (Auto) 0.7 % 12/19/23 04:49 Neut % (Auto) 75.2 % 12/19/23 04:49 Lymph % (Auto) 12.2 % 12/19/23 04:49 [place] % (Auto) 9.4 % 12/19/23 04:49 Eos % (Auto) 2.2 % 12/19/23 04:49 Baso % (Auto) 0.3 % 12/19/23 04:49 Neut # (Auto) 5.54 K/uL (1.40-6.50) 12/19/23 04:49 Lymph # (Auto) 0.90 K/uL (1.20-3.40) L 12/19/23 04:49 [place] # (Auto) 0.69 K/uL (0.11-0.59) H 12/19/23 04:49 Eos # (Auto) 0.16 K/uL (0.00-0.50) 12/19/23 04:49 Baso # (Auto) 0.02 K/uL (0.00-0.20) 12/19/23 04:49 Immature Gran # (Auto) 0.05 K/uL (0.01-0.20) 12/19/23 04:49 PT 11.8 Seconds (9.0-12.0) 12/19/23 04:49 INR 1.1 (0.9-1.1) 12/19/23 04:49 APTT 24 Seconds (21-31) 12/18/23 15:22 PTT Ratio 0.9 12/18/23 15:22 Sodium 138 mmol/L (136-145) 12/19/23 04:49 Potassium 3.9 mmol/L (3.5-5.1) 12/19/23 04:49 Chloride 103 mmol/L (98-107) 12/19/23 04:49 Carbon Dioxide 25 mmol/L (21-32) 12/19/23 04:49 Anion Gap 10 (3-11) 12/19/23 04:49 BUN 15 mg/dl (6-23) 12/19/23 04:49 Creatinine 0.95 mg/dl (0.6-1.2) D 12/19/23 04:49 Est Cr Clr Drug Dosing 34.7 ml/min 12/19/23 04:49 Est GFR ( Amer) 62.9 ml/min 12/19/23 04:49 Est GFR (Non-Af Amer) 54.2 ml/min 12/19/23 04:49 BUN/Creatinine Ratio 15.8 (10-20) 12/19/23 04:49 Glucose 98 mg/dl (70-99(Fasting)) 12/19/23 04:49 POC Glucose 127 mg/dl (70-99) H 12/18/23 21:35 Calcium 8.7 mg/dl (8.6-10.3) 12/19/23 04:49 Magnesium 1.9 mg/dl (1.7-2.4) 12/19/23 04:49 Total Bilirubin 0.6 mg/dl (0.2-1.0) 12/19/23 04:49 AST 13 U/L (13-39) 12/19/23 04:49 ALT 11 U/L (7-52) 12/19/23 04:49 Alkaline Phosphatase 71 U/L (34-104) 12/19/23 04:49 Total Protein 6.3 gm/dl (6.0-8.3) 12/19/23 04:49 Albumin 3.6 gm/dl (3.4-5.0) 12/19/23 04:49 Globulin 2.7 gm/dl (2.5-4.0) 12/19/23 04:49 Albumin/Globulin Ratio 1.3 (0.9-2) 12/19/23 04:49 Urine Color Yellow 12/18/23 18:15 Urine Appearance Clear (Clear) 12/18/23 18:15 Urine pH 5.0 (4.5-7.5) 12/18/23 18:15 Ur Specific [place] > 1.045 (1.000-1.030) H 12/18/23 18:15 Urine Protein Trace (Negative) H 12/18/23 18:15 Urine Glucose (UA) Negative (Negative) 12/18/23 18:15 Urine Ketones 1+ (Negative) H 12/18/23 18:15 Urine Blood Negative (Negative) 12/18/23 18:15 Urine Nitrite Negative (Negative) 12/18/23 18:15 Urine Bilirubin Negative (Negative) 12/18/23 18:15 Urine Urobilinogen Negative (Negative) 12/18/23 18:15 Ur Leukocyte Esterase Negative (Negative) 12/18/23 18:15 Urine WBC (Auto) 0-5 /hpf (0-5) 12/18/23 18:15 Urine RBC (Auto) 0-2 /hpf (0-2) 12/18/23 18:15 U Hyaline Cast (Auto) 11-20 /lpf (0-2) H 12/18/23 18:15 U Epithel Cells (Auto) 0-2 /hpf (0-2) 12/18/23 18:15 Urine Bacteria (Auto) None Seen (None Seen) 12/18/23 18:15 Impressions Chest X-Ray 12/18/23 15:30 XR chest 1V portable HISTORY: 88 years-old Female fall acute chest trauma status post fall COMPARISON: None TECHNIQUE: AP view the chest FINDINGS: Cardiac silhouette is enlarged. Mitral annular calcifications. No pneumothorax, pleural effusion or airspace consolidation. Bones appear grossly intact. Chronic appearing left proximal humeral fracture deformity. IMPRESSION: Cardiomegaly without acute process. ACT 112: Negative or not required by law. The above report was generated using voice recognition software. It may contain grammatical, syntax or spelling errors. Electronically signed by: Juan Jose Boss M.D. 12/18/2023 4:59 PM Femur X-Ray 12/18/23 15:30 XR pelvis 1-2V routine, XR femur RT 2V routine HISTORY: 88 years-old Female fall acute pain of the pelvis and right hip status post fall COMPARISON: None TECHNIQUE: AP view the pelvis with one view of the right femur FINDINGS: PELVIS: Moderate osteoarthritis of the hips. Demineralized appearance of the bones. Arterial calcifications. Acute proximal right femoral fracture as below. FEMUR: There is an acute and impacted fracture of the right femoral neck which appears transcervical demonstrating superior displacement of approximately 1.6 cm. No dislocation. Moderate soft tissue swelling. IMPRESSION: Acute impacted and displaced transcervical right femoral fracture. ACT 112: Negative or not required by law. The above report was generated using voice recognition software. It may contain grammatical, syntax or spelling errors. Electronically signed by: Juan Jose Boss M.D. 12/18/2023 3:55 PM Pelvis X-Ray 12/18/23 15:30 XR pelvis 1-2V routine, XR femur RT 2V routine HISTORY: 88 years-old Female fall acute pain of the pelvis and right hip status post fall COMPARISON: None TECHNIQUE: AP view the pelvis with one view of the right femur FINDINGS: PELVIS: Moderate osteoarthritis of the hips. Demineralized appearance of the bones. Arterial calcifications. Acute proximal right femoral fracture as below. FEMUR: There is an acute and impacted fracture of the right femoral neck which appears transcervical demonstrating superior displacement of approximately 1.6 cm. No dislocation. Moderate soft tissue swelling. IMPRESSION: Acute impacted and displaced transcervical right femoral fracture. ACT 112: Negative or not required by law. The above report was generated using voice recognition software. It may contain grammatical, syntax or spelling errors. Electronically signed by: Juan Jose Boss M.D. 12/18/2023 3:55 PM Abdomen/Pelvis CT 12/18/23 15:[address] WITH IV CONTRAST HISTORY: Acute abdominal trauma status post fall fall TECHNIQUE: Multiaxial CT images of the abdomen and pelvis were performed following the IV administration of 91 cc of Optiray, A dose lowering technique was utilized adhering to the principles of ALARA. COMPARISON STUDY: Right femur radiographs of same day. FINDINGS: Cardiomegaly with dense mitral annular and annular calcifications. Mild bibasilar atelectasis. No free air. Unremarkable spleen, moderately atrophic pancreas and liver. Patent hepatic and portal veins. Thickening of the adrenal glands suggestive of hyperplasia. Filling defects in the gallbladder lumen suggestive of tumefactive sludge versus cholelithiasis. There are a few cysts noted within the kidneys. 4 mm nonobstructing right renal calculus. 4 mm calculus at the interpolar left kidney. No ureteral calculi or hydronephrosis. Pelvic basin phleboliths. Decompressed urinary bladder. Ather osclerosis of the aorta. No lymphadenopathy. No retroperitoneal hemorrhage identified. Mild distal esophageal wall thickening. Duodenal diverticulum. No bowel obstruction or bowel wall thickening. No free fluid. Colonic diverticulosis. The appendix is not well visualized. Degenerative changes of the spine, pelvis and hips. Chronic right-sided rib fractures. Nondisplaced left sacral insufficiency fracture with marginal sclerosis. Acute comminuted, impacted and mildly displaced right femoral neck fracture. Healing subacute left pelvic ring fractures with healing sclerosis. IMPRESSION: 1. Acute, comminuted, mildly angulated, displaced and impacted right femoral neck fracture. 2. Healing subacute nondisplaced left sacral and pelvic ring fracture deformities. 3. No evidence of acute solid organ injury. 4. Nonobstructing bilateral nephrolithiasis. 5. Gallbladder sludge versus cholelithiasis. 6. Additional findings as above. ACT 112: Negative or not required by law. The above report was generated using voice recognition software. It may contain grammatical, syntax or spelling errors. Electronically signed by: Juan Jose Boss M.D. 12/18/2023 4:[address] 12/18/23 15:38 CT cervical spine wo con CLINICAL HISTORY: 88 years-old Female with fall. Acute neck injury status post fall COMPARISON: Head CT of same day, CT cervical spine 08/30/2023 TECHNIQUE: Multiple axial CT images of the cervical spine were obtained without contrast. A dose lowering technique was utilized adhering to the principles of ALARA. FINDINGS: Demineralized appearance of the bones with multilevel degenerative changes redemonstrated. No acute fracture or subluxation is identified. Thyroid goiter. Intralobular septal thickening of the lungs. Small right mastoid effusion. No pneumothorax. IMPRESSION: No acute cervical spine fracture or subluxation identified. ACT 112: Negative or not required by law. The above report was generated using voice recognition software. It may contain grammatical, syntax or spelling errors. Electronically signed by: Juan Jose Boss M.D. 12/18/2023 4:[address] 12/18/23 15:38 CT head/brain wo con CLINICAL HISTORY: 88 years-old Female with fall. Acute head trauma status post fall TECHNIQUE: Multiple axial CT images of the head were obtained without contrast. A dose lowering technique was utilized adhering to the principles of ALARA. CT DOSE: 1466.24 mGy.cm COMPARISON: None. FINDINGS: No acute intracranial hemorrhage, midline shift, intra-axial mass, hyd rocephalus, territorial ischemia or abnormal extra-axial collection. Involutional changes with chronic microvascular ischemic disease. Cerebral vascular calcifications. Unchanged 7 mm ossification adjacent to the posterior right superior cerebrum on image 25 series 2. The calvarium is intact. The paranasal sinuses, mastoid air cells, and middle ear cavities are clear. IMPRESSION: No acute intracranial abnormality. ACT 112: Negative or not required by law. The above report was generated using voice recognition software. It may contain grammatical, syntax or spelling errors. Electronically signed by: Juan Jose Boss M.D. 12/18/2023 4:28 PM (1) Closed right hip fracture Encounter type: initial encounter Qualified Code(s): S72.001A - Fracture of unspecified part of neck of right femur, initial encounter for closed fracture
[2023-12-19] MEDS: DIGOXIN 0.125 MG TAB PO SCH (09:30)
[2023-12-19] MEDS: ATORVASTATIN 10 MG TAB PO SCH (09:31)
[2023-12-19] MEDS: dilTIAZem HCL 240 MG CAPCR PO SCH (09:31)
[2023-12-19] MEDS: MAGNESIUM OXIDE 400 MG TAB PO SCH (09:36)
[2023-12-19] MEDS: ENOXAPARIN INJ 40 MG/0.4 ML SYR SQ ONE (09:37)
[2023-12-19] MEDS: AMIODARONE 200 MG TAB PO SCH (09:48)
[2023-12-19] MEDS: LACTATED RINGER'S 1,000 ML IV SCH (14:25)
--- NOTE | 2023-12-19 15:50 | Hospitalist Progress Note ---
Date of Service December 19, 2023 Assessment & Plan (1) Closed right hip fracture: Plan: following mechanical fall (2) Atrial fibrillation: (3) Diabetes: Plan 88 y/o with afib/flutter, moderate aortic stenosis, diabetes who fell when her partially locked wheelchair rolled away, sustaining right hip fracture Recently she was admitted for L humerus fracture and pelvic fracture after a fall and was found to have afib/flutter Her family reports she was admitted at [facility] 3 weeks ago and was cardioverted, had medication adjustments Osteoporotic right hip fracture - consulted Dr. Benavides. Pain control with IV morphine and acetaminophen. Plan for hip repair tomorrow morning She has asymptomatic moderate , no hx chest pain CHF or syncope. Anesthesiologist should be aware and caution with fluid shifts and vasodilators. no medical contraindications to proceeding with surgery. apixaban has held and will be 48 hours from last dose as of tomorrow morning. n.p.o. after midnight. Afib/flutter -holding apixaban -[id number] is 4. I gave a prophylaxis level dose of enoxaparin this morning. resume apixaban postop when okay with Dr. Benavides -continue rate control meds: digoxin, amiodarone - diltiazem and metoprolol were held today for low blood pressure she is mildly hypotensive today with systolic in low 90s, ordered gentle IV LR timesx 500 mL diabetes - A1c was 9.9 in August. she was started on semaglutide - continue blood glucose checks before every meal and at bedtime, not on long- acting insulin, continue Premeal aspart CF 50 - blood glucose has been well-controlled since admission, at goal CKD stage III creatinine was mildly elevated above baseline at 1.3 yesterday consistent with volume depletion. Improved to 0.95 today which is baseline. Avoid NSAIDs osteoporosiscalcium/vitamin D replacement DVT prophylaxissee anticoagulation discussion above disposition: Anticipate she will need a SNF stay for rehab, PT and OT following surgery Admission and Anticipated Discharge Date Admission Date: December 18, 2023 Subjective doing well, she does not have any severe right hip pain when she is at rest, she has had a few doses of morphine but not this morning no shortness of breath no chest pain, no problems with tachycardia Physical Exam 2 Physical Exam: PHYSICAL EXAMINATION Last 24h vital signs reviewed, see documentation in flowsheet General: comfortable appearing, no distress HEENT: Normocephalic, atraumatic, pupils round and equal, sclerae anicteric, no conjunctival injection, moist mucus membranes Lungs: Normal respiratory effort. Clear to auscultation bilaterally. No RRW Heart: Regular rate and rhythm, systolic crescendo/decrescendo murmur. No JVD Abdomen: Soft, nontender, nondistended. Bowel sounds present. Extremities: Warm, dry, well-perfused. No extremity edema. right lower extremity is externally rotated and foreshortened. DP pulses intact foot is warm and well-perfused Neuro: Alert and oriented x 4, face symmetric, moves 4 extremities well Psych: Normal affect and behavior Results & Data Results & Data Vital Signs (Past 12 Hours) Vital Signs Temp Pulse Pulse Pulse Resp BP Pulse Ox 12/19/23 15:07 91/59 L 12/19/23 13:57 36.3 C L 71 16 88/57 L 95 12/19/23 10:54 12/19/23 10:25 36.5 C 93 H 18 108/70 95 12/19/23 09:30 88 12/19/23 09:29 81 20 94/68 L 96 12/19/23 07:00 68 20 104/66 98 12/19/23 06:00 68 21 93/73 L 98 12/19/23 05:00 69 17 100/63 95 12/19/23 04:00 75 18 101/57 L 94 O2 Del Method 12/19/23 15:07 12/19/23 13:57 Room Air 12/19/23 10:54 Room Air 12/19/23 10:25 Room Air 12/19/23 09:30 12/19/23 09:29 Room Air 12/19/23 07:00 Room Air 12/19/23 06:00 Room Air 12/19/23 05:00 Room Air 12/19/23 04:00 Room Air Laboratory Results 12/19/23 04:49 12/19/23 04:49 PG Care Time/CCT Total # of Minutes Spent Total Time Spent with Patient: Total time spent is greater than 50% in coordination of care (as documented) at patient's floor/unit and/or counseling patient: Coding Level of Care Code 79956 SUB INP/OBS CARE 2/35MIN Diagnoses Closed right hip fracture S72.001A Encounter type: initial encounter Atrial fibrillation I48.91 Diabetes E11.9 (1) Closed right hip fracture Encounter type: initial encounter Qualified Code(s): S72.001A - Fracture of unspecified part of neck of right femur, initial encounter for closed fracture
[2023-12-19] MEDS ORDERED: MoRPHine SULFATE 2 MG/ML CARP IV PRN (17:07)
--- NOTE | 2023-12-19 20:52 | Electrocardiogram Report ---
Test Reason : Blood Pressure : / mmHG Vent. Rate : 081 BPM Atrial Rate : 000 BPM P-R Int : 000 ms QRS Dur : 094 ms QT Int : 388 ms P-R-T Axes : 000 057 -49 degrees QTc Int : 450 ms Atrial fibrillation Abnormal ECG When compared with ECG of 30-AUG-2023 14:03, Inverted T waves have replaced nonspecific T wave abnormality in Lateral leads Confirmed by Reilly Bro ([id number]) on 12/19/2023 8:52:09 PM Referred By: REFERRED SELF Confirmed By:Reilly Bro
[2023-12-19] MEDS: oxyCODONE HCL IR 5 MG TAB (IMMEDIATE RELEASE) PO PRN (21:48)
[2023-12-20] MEDS ORDERED: Nursing to Pharmacy Communication SCH ×2 (05:00→20:30)
[2023-12-20] MEDS: INSULIN ASPART PER UNIT CHARGE SC SCH ×2 (05:27→21:36)
[2023-12-20] MEDS ORDERED: ceFAZolin 2000MG 2,000 MG/15 ML SYR IV ONE (08:40)
[2023-12-20 08:47] LABS: Basophils # (auto) 0.02 K/uL (0.00-0.20); Basophils % (auto) 0.3 %; Eosinophils % (auto) 1.4 %; Hematocrit (blood only) 31.6 % (37.0-47.0); Hemoglobin 10.6 g/dl (12.0-16.0); Immature Granulocytes # (auto) 0.03 K/uL (0.01-0.20); Immature Granulocytes % (auto) 0.4 %; Lymphocytes # (auto) 0.72 K/uL (1.20-3.40); Lymphocytes % (auto) 10.2 %; Mean Corpuscular Hemoglobin 30.7 pg (25.0-34.0); Mean Corpuscular Hgb Conc 33.5 g/dL (32.0-36.0); Mean Corpuscular Volume 91.6 fL (80.0-100.0); Mean Platelet Volume 11.2 fL (9.4-12.4); Monocytes # (auto) 0.59 K/uL (0.11-0.59); Monocytes % (auto) 8.3 %; Neutrophils # (auto) 5.62 K/uL (1.40-6.50); Neutrophils % (auto) 79.4 %; Platelet Count 192 K/uL (130-400); RDW Coefficient of Variation 13.5 % (11.5-14.5); RDW Standard Deviation 45.6 fL (36.4-46.3); Red Blood Count 3.45 M/uL (4.20-5.40); White Blood Count 7.08 K/ul (4.8-10.8)
[2023-12-20 09:08] LABS: BUN Creatinine Ratio 18.4 (10-20); Calcium 8.4 mg/dl (8.6-10.3); Creatinine Clr Calc Pharmacy 43.4 ml/min; Est GFR (African American) 82.3 ml/min; Potassium 3.9 mmol/L (3.5-5.1)
--- NOTE | 2023-12-20 09:30 | Orthopedic Progress Note ---
Date of Service December 20, 2023 Assessment & Plan (1) Closed right hip fracture: Plan: The patient is a 88 year old female who sustained a right hip fracture from a ground level fall attempting to sit in a wheel [place] a [place] in [place]. The patients treatment options of conservative versus surgical intervention were discussed. Since the patient is in significant pain and wants to avoid the risks of bed sores, pulmonary complications, and to give the best chance for any mobility, she wished to proceed with surgery. The patient understands the risks of surgery, which include but are not limited to: bleeding, infection, re-operation, damage to nerves and arteries, continued pain, failure of the hardware, mal-union, non-union, DVT, and . In addition the patient is aware of the 20-30% morbidity associated with hip fracture for up to 1 year following a hip fracture. The patient has elected to proceed with surgery and the informed consent was signed 12/19/23. The patient understands all of these instructions and explanations, all of their questions have been satisfactorily addressed. Placed on the add-on schedule Wednesday due to last dose of Eliquis was 12/18/23 AM, and will proceed if medically stable. Patient has been NPO after midnight. RLE NWB. TEDs and foot pumps to LLE. Antibiotics and TXA database administration project manager to OR. Admission and Anticipated Discharge Date Admission Date: December 18, 2023 Subjective Right hip pain Physical Exam Physical Exam: RLE: Sensation to light touch intact distally. Wiggling toes and ankle. 1+ PT pulse. + Log Roll hip Results & Data Vital Signs (Past 12 Hours) Vital Signs Temp Pulse Resp BP Pulse Ox O2 Del Method 12/20/23 08:50 Room Air 12/20/23 07:09 36.4 C L 53 L 16 127/85 96 Room Air Laboratory Results 12/20/23 12/20/23 12/20/23 Range/Units 08:29 06:01 05:27 WBC 7.08 (4.8-10.8) K/ul RBC 3.45 L (4.20-5.40) M/uL Hgb 10.6 L (12.0-16.0) g/dl Hct 31.6 L (37.0-47.0) % MCV 91.6 (80.0-100.0) fL MCH 30.7 (25.0-34.0) pg MCHC 33.5 (32.0-36.0) g/dL RDW Std Deviation 45.6 (36.4-46.3) fL RDW Coeff of Joshua 13.5 (11.5-14.5) % Plt Count 192 (130-400) K/uL MPV 11.2 (9.4-12.4) fL Immature Gran % (Auto) 0.4 % Neut % (Auto) 79.4 % Lymph % (Auto) 10.2 % Nash % (Auto) 8.3 % Eos % (Auto) 1.4 % Baso % (Auto) 0.3 % Neut # (Auto) 5.62 (1.40-6.50) K/uL Lymph # (Auto) 0.72 L (1.20-3.40) K/uL Nash # (Auto) 0.59 (0.11-0.59) K/uL Eos # (Auto) 0.10 (0.00-0.50) K/uL Baso # (Auto) 0.02 (0.00-0.20) K/uL Immature Gran # (Auto) 0.03 (0.01-0.20) K/uL Sodium 135 L (136-145) mmol/L Potassium 3.9 (3.5-5.1) mmol/L Chloride 99 (98-107) mmol/L Carbon Dioxide 29 (21-32) mmol/L Anion Gap 7 (3-11) BUN 14 (6-23) mg/dl Creatinine 0.76 (0.6-1.2) mg/dl Est Cr Clr Drug Dosing 43.4 ml/min Est GFR ( Amer) 82.3 ml/min Est GFR (Non-Af Amer) 71.0 ml/min BUN/Creatinine Ratio 18.4 (10-20) Glucose 118 H (70-99(Fasting)) mg/dl POC Glucose 120 H 137 H (70-99) mg/dl Calcium 8.4 L (8.6-10.3) mg/dl 12/19/23 12/19/23 12/19/23 Range/Units 20:23 16:40 11:25 WBC (4.8-10.8) K/ul RBC (4.20-5.40) M/uL Hgb (12.0-16.0) g/dl Hct (37.0-47.0) % MCV (80.0-100.0) fL MCH (25.0-34.0) pg MCHC (32.0-36.0) g/dL RDW Std Deviation (36.4-46.3) fL RDW Coeff of Joshua (11.5-14.5) % Plt Count (130-400) K/uL MPV (9.4-12.4) fL Immature Gran % (Auto) % Neut % (Auto) % Lymph % (Auto) % Nash % (Auto) % Eos % (Auto) % Baso % (Auto) % Neut # (Auto) (1.40-6.50) K/uL Lymph # (Auto) (1.20-3.40) K/uL Nash # (Auto) (0.11-0.59) K/uL Eos # (Auto) (0.00-0.50) K/uL Baso # (Auto) (0.00-0.20) K/uL Immature Gran # (Auto) (0.01-0.20) K/uL Sodium (136-145) mmol/L Potassium (3.5-5.1) mmol/L Chloride (98-107) mmol/L Carbon Dioxide (21-32) mmol/L Anion Gap (3-11) BUN (6-23) mg/dl Creatinine (0.6-1.2) mg/dl Est Cr Clr Drug Dosing ml/min Est GFR ( Amer) ml/min Est GFR (Non-Af Amer) ml/min BUN/Creatinine Ratio (10-20) Glucose (70-99(Fasting)) mg/dl POC Glucose 193 H 159 H 135 H (70-99) mg/dl Calcium (8.6-10.3) mg/dl Diagnostic Findings XR pelvis 1-2V routine, XR femur RT 2V routine HISTORY: 88 years-old Female fall acute pain of the pelvis and right hip status post fall COMPARISON: None TECHNIQUE: AP view the pelvis with one view of the right femur FINDINGS: PELVIS: Moderate osteoarthritis of the hips. Demineralized appearance of the bones. Arterial calcifications. Acute proximal right femoral fracture as below. FEMUR: There is an acute and impacted fracture of the right femoral neck which appears transcervical demonstrating superior displacement of approximately 1.6 cm. No dislocation. Moderate soft tissue swelling. IMPRESSION: Acute impacted and displaced transcervical right femoral fracture. ACT 112: Negative or not required by law. The above report was generated using voice recognition software. It may contain grammatical, syntax or spelling errors. (1) Closed right hip fracture Encounter type: initial encounter Qualified Code(s): S72.001A - Fracture of unspecified part of neck of right femur, initial encounter for closed fracture
[2023-12-20] MEDS ORDERED: fentaNYL citrate PF 100 MCG/2 ML VIAL ONE (10:05)
[2023-12-20] MEDS: LACTATED RINGER'S 1,000 ML IV SCH (10:41)
[2023-12-20] MEDS ORDERED: ONDANSETRON INJ 2 MG/ML 2 ML VIAL IV PRN ×2 (10:51→15:45)
[2023-12-20] MEDS ORDERED: fentaNYL citrate PF 100 MCG/2 ML VIAL IV PRN (10:51)
[2023-12-20] MEDS ORDERED: ATROPINE SULFATE 0.1 MG/ML 10ML SYR IV PRN (10:51)
[2023-12-20] MEDS ORDERED: ePHEDrine sulfate 50 MG/ML AMP IV PRN (10:51)
[2023-12-20] MEDS ORDERED: HYDROmorphone INJ 1 MG/ML SYRINGE IV PRN (10:51)
--- NOTE | 2023-12-20 10:51 | Anesthesiology Consultation ---
Date of Service December 20, 2023 Assessment & Plan Chart Review Chart Review: Acceptable Risk for Surgery and Patient NOT seen in Pre Admission Testing History Surgery Operation Date: 12/20/23 07:00 Proposed Procedures p Bipolar Hip Prosthesis - Humberto Eva Benavides MD Height/Weight Height: 5 ft 7 in Weight: 51.7 kg Allergies Allergy/AdvReac Type Severity Reaction Status Date / Time No Known Allergies Allergy Unverified 12/18/23 17:51 Medications Home Medications Medication Instructions Recorded Confirmed Last Taken apixaban 2.5 mg tablet (Eliquis) 2.5 mg PO BID 08/30/23 12/18/23 12/18/23 08:00 atorvastatin 10 mg tablet 10 mg PO QAM 08/30/23 12/18/23 12/18/23 08:00 diltiazem HCl 240 mg 240 mg PO QAM 08/30/23 12/18/23 12/18/23 08:00 capsule,extended release 24 hr, controlled (DILT-XR) omeprazole 20 mg capsule,delayed 20 mg PO DAILYBB 08/30/23 12/18/23 12/18/23 08:00 release acetaminophen 500 mg tablet 1,000 mg (2 x 500 mg) PO Q8H PRN 09/06/23 12/18/23 Unknown (Tylenol Extra Strength) pain #10 tabs cholecalciferol (vitamin D3) 125 125 mcg PO QAM #30 tabs 09/06/23 12/18/23 12/18/23 08:00 mcg (5,000 unit) tablet cyanocobalamin (vitamin B-12) 500 1,000 mcg (2 x 500 mcg) PO QAM #30 09/06/23 12/18/23 12/18/23 08:00 mcg tablet tabs amiodarone 200 mg tablet See Rx Instructions .Route .COMPLEX 12/18/23 12/18/23 12/18/23 08:00 digoxin 125 mcg (0.125 mg) tablet 125 mcg PO Q OTHER DAY 12/18/23 12/18/23 12/17/23 08:00 magnesium oxide 400 mg (241.3 mg 800 mg PO QAM 12/18/23 12/18/23 12/18/23 08:00 magnesium) tablet metoprolol tartrate 25 mg tablet 25 mg PO TID 12/18/23 12/18/23 12/18/23 08:00 needs 2pm dose & hs semaglutide 3 mg tablet (Rybelsus) 3 mg PO QAM 12/18/23 12/18/23 12/18/23 08:00 Active Medications Generic Name Dose Route Start Last Admin Trade Name Randolph PRN Reason Stop Dose Admin Acetaminophen 650 mg 12/19/23 00:00 12/20/23 05:28 Acetaminophen 325 Mg Tab PO 01/18/24 00:00 650 mg Q6H JOSE Administration Amiodarone HCl 200 mg 12/19/23 08:00 12/20/23 09:34 Amiodarone 200 Mg Tab PO 01/18/24 07:59 200 mg BIDM JOSE Administration Atorvastatin Calcium 10 mg 12/19/23 09:00 12/20/23 08:09 Atorvastatin 10 Mg Tab PO 01/18/24 08:59 10 mg QAM JOSE Administration Digoxin 0.125 mg 12/19/23 09:00 12/19/23 09:30 Digoxin 0.125 Mg Tab PO 01/18/24 08:59 0.125 mg Q48H JOSE Administration Diltiazem HCl 240 mg 12/19/23 09:00 12/19/23 09:31 Diltiazem Hcl 240 Mg Capcr PO 01/18/24 08:59 Not Given QAM JOSE Lactated Ringer's 1,000 mls @ 15 mls/hr 12/20/23 10:45 12/20/23 10:41 Lr IV 01/19/24 10:44 15 mls/hr .Q24H JOSE Administration Insulin Aspart 0 units 12/20/23 06:00 12/20/23 05:27 Insulin Aspart Per Unit Charge SC 01/19/24 05:59 Not Given Q6 JOSE Magnesium Oxide 800 mg 12/19/23 09:30 12/20/23 08:09 Magnesium Oxide 400 Mg Tab PO 01/18/24 09:29 800 mg QAM JOSE Administration Metoprolol Tartrate 25 mg 12/18/23 21:00 12/20/23 09:35 Metoprolol Tartrate 25 Mg Tab PO 01/17/24 20:59 25 mg TID JOSE Administration Oxycodone HCl 5 mg 12/19/23 16:51 12/19/23 21:48 Oxycodone Hcl Ir 5 Mg Tab (Immediate Release) PO 01/02/24 16:50 5 mg Q6H PRN Administration Moderate Pain (Scale 4, 5, 6) Pantoprazole Sodium 40 mg 12/19/23 06:30 12/20/23 05:28 Pantoprazole 40 Mg Tab PO 01/18/24 06:29 40 mg DAILYBB JOSE Administration Protocol NPO Date Last Intake of Fluids: 12/19/23 Time Last Intake of Fluids: 23:00 Last Intake of Fluids Comment: 0900 sip water for meds. did NOT take Digoxin Date Last Intake of Solids: 12/19/23 Time Last Intake of Solids: 17:00 Past Medical History Medical History Atrial fibrillation Atrial flutter Past Surgical History Surgical History H/O: hysterectomy Social History Smoking Status: Never smoker Hx Alcohol Use: No Hx Substance Use: No substance use type: does not use Physical Exam Vital Signs Last Vital Signs Temp 36.7 C 12/20/23 10:34 Pulse 85 12/20/23 10:34 Resp 20 12/20/23 10:34 BP 126/86 12/20/23 10:34 Pulse Ox 95 12/20/23 10:34 O2 Del Method Room Air 12/20/23 10:34 O2 Flow Rate 94 12/18/23 15:29 Testing Laboratory Results 12/20/23 08:29 12/20/23 08:29 PT 11.8 Seconds (9.0-12.0) 12/19/23 04:49 INR 1.1 (0.9-1.1) 12/19/23 04:49 APTT 24 Seconds (21-31) 12/18/23 15:22 Urine Color Yellow 12/18/23 18:15 Urine Appearance Clear (Clear) 12/18/23 18:15 Urine pH 5.0 (4.5-7.5) 12/18/23 18:15 Ur Specific [place] > 1.045 (1.000-1.030) H 12/18/23 18:15 Urine Protein Trace (Negative) H 12/18/23 18:15 Urine Glucose (UA) Negative (Negative) 12/18/23 18:15 Urine Ketones 1+ (Negative) H 12/18/23 18:15 Urine Nitrite Negative (Negative) 12/18/23 18:15 Ur Leukocyte Esterase Negative (Negative) 12/18/23 18:15 Urine WBC (Auto) 0-5 /hpf (0-5) 12/18/23 18:15 Urine RBC (Auto) 0-2 /hpf (0-2) 12/18/23 18:15 U Hyaline Cast (Auto) 11-20 /lpf (0-2) H 12/18/23 18:15 U Epithel Cells (Auto) 0-2 /hpf (0-2) 12/18/23 18:15 Urine Bacteria (Auto) None Seen (None Seen) 12/18/23 18:15 12/20/23 12/20/23 12/20/23 10:46 06:01 05:27 POC Glucose 108 H 120 H 137 H
[2023-12-20] MEDS: ceFAZolin 2000MG 2,000 MG/15 ML SYR IV SCH ×2 (11:44→20:23)
[2023-12-20] MEDS: TRANEXAMIC ACID / 0.7% NACL 1,000 MG/100 ML BAG IV ONE ×2 (11:44→13:14)
[2023-12-20] MEDS ORDERED: ePHEDrine sulfate 50 MG/5 ML SYR ONE (12:23)
[2023-12-20] MEDS ORDERED: PHENYLEPHRINE HCL 10 MG/ML VIAL ONE (12:23)
[2023-12-20] MEDS ORDERED: DEXAMETHASONE SOD INJ 4 MG/ML VIAL ONE (12:23)
[2023-12-20] MEDS ORDERED: PROPOFOL IV EMULSION 10 MG/ML 20 ML VIAL IV ONE (12:23)
[2023-12-20] MEDS ORDERED: ROCURONIUM BROMIDE 10 MG/ML 5 ML VIAL IV ONE (12:23)
[2023-12-20] MEDS ORDERED: LIDOCAINE 2% 20 MG/ML 5 ML SYR IV ONE (12:23)
[2023-12-20] MEDS ORDERED: ONDANSETRON INJ 2 MG/ML 2 ML VIAL ONE (12:23)
[2023-12-20] MEDS ORDERED: ALBUMIN HUMAN 5% 12.5 GM/250 ML VIAL IV ONE (13:20)
[2023-12-20] MEDS ORDERED: SUGAMMADEX SODIUM 200 MG/2 ML VIAL IV ONE (13:38)
[2023-12-20] MEDS: LIDOCAINE 1%/EPINEPHRINE 1:100,000 50 ML VIAL ONE (13:45)
[2023-12-20] MEDS: BUPIVACAINE 0.5 % 5 MG/1 ML MPF 30ML VIAL ONE (13:45)
--- NOTE | 2023-12-20 14:12 | Post Operative Brief Note ---
Immediate Post Op Note Date of Surgery December 20, 2023 Pre & Post Diagnosis Operation Date: 12/20/23 07:00 Pre-Op Diagnosis: Right hip fracture Post-Op Diagnosis: Right hip fracture I identified the patient and participated in the time-out.: Yes Procedure Operation Date: 12/20/23 07:00 Actual Procedures p Right hip hemiarthroplasty(Right) - Humberto Benavides MD Surgeon Humberto Benavides MD Senior Quality Control Technician Jazzmine Salguero PA-C & Raymond Gates PA-C Estimated Blood Loss 50 Findings Consistent with Post-Op Diagnosis Fluids 1000 cc Specimens Right femoral Head Drains Wheatley Catheter Anesthesia Type General Complications none
--- NOTE | 2023-12-20 14:13 | Operative Report ---
Post Operative Report Pre & Post Diagnosis Operation Date: 12/20/23 07:00 Pre-Op Diagnosis: Right hip fracture Post-Op Diagnosis: Right hip fracture I identified the patient and participated in the time-out.: Yes Procedure Operation Date: 12/20/23 07:00 Actual Procedures p Right hip hemiarthroplasty(Right) - Humberto Benavides MD Surgeon Humberto Benavides MD Trailer Park Manager Jazzmine Salguero PA-C & Raymond Gates PA-C Estimated Blood Loss 50 Findings See Below Displaced, comminuted right femoral neck fracture Fluids 1000 cc Specimens Right femoral Head Drains [place] Anesthesia Type General Complications none Indications The patient is a 88 year old female who sustained a Traumatic Osteoporotic fracture of right femoral neck in setting of ground level fall. After orthopedic consult discussing the patients treatment options of conservative versus surgical intervention, she agreed for a planned hemiarthroplasty. Since the patient was ambulatory prior to the injury and to avoid the risks of bed sores, pulmonary complications, and to give the patient the best chance for ambulation, I recommended surgery. The patient understands the risks of surgery, which include but are not limited to: bleeding, infection, re- operation, damage to nerves and arteries, continued pain, failure of the hardware, dislocation, DVT, and . In addition the patient is aware of the 20-30% morbidity associated with hip fracture for up to 1 year following a hip fracture. The patient understands all of these instructions and explanations, all of their questions have been satisfactorily addressed. The patient has elected to proceed with surgery and the informed consent was signed. Description of Procedure Jazzmine Salguero PA-C is assisting with positioning, retraction, until with femoral stem was preformed. Raymond Gates PA-C scrubbed Siobhan out and assisted with retraction and closure due to fellow not available. IMPLANTS: 1) LD/Fx, Size 12 Cemented (Gayla/Biomet). 2) Femoral Head 28mm Diameter, + 0 mm Neck Length. 3) 49 mm Multipolar Bipolar Cup. 4) 28 mm ID Liner, Multipolar Bipolar Cup. 5) Distal Centralizer 11 mm. 6) Palacos cement x 2 PROCEDURE: The patient was taken to the Operating Room and placed in the lateral position with Stulberg following general anesthesia administration. A multidisciplinary time-out was performed identifying my initials on the left lower limb as the correct and operative limb. Prior to the incision being made, 2 grams of intravenous Ancef were given. The left lower extremity was prepped in the standard fashion. The trochanter was marked as was the planned incision 1/3 proximal and 2/3 distal to the tip of the greater trochanter. The incision was injected with a 50:50 mixture of 1% Lidocaine epi and 0.5% Bupivacaine plain for a total of 10cc. A standard posterior approach was made. The planned incision was carried down through the Tensor Fascia Aminta, which was then split in-line with its fibers. The Gluteus Yuan was bluntly dissected. The Piriformis and short external rotators were dissected off the capsule and femur and tagged for later repair. The capsule was incised and freed off the fracture fragments. The Neck cut was made to allow removal of the femoral head and comminuted fragments. The femoral canal was prepared with Box osteotome, followed by a canal finder. The femur was sequentially broached in the standard fashion, and trial heads were placed. Fluoroscopy was brought in to ensure adequate proper alignment, fill of the canal, head size, and leg length. Fluoroscopy showed canal fill and good position. The trial components were removed and the wound and femoral canal were copiously irrigated and dried. The femur was cemented using 3rd generation technique followed by placement of the components in the standard fashion and the hip reduced. There was excellent stability with no sense of dislocation with 30 degrees adduction, flexion 90 degrees, and internal rotation to 55 degrees. The wounds were copiously irrigated. The External rotators and capsule were closed over bone bridges with #2 FiberWire. The Tensor Fascia Aminta was closed with #1 and 0 Vicryl. The subcutaneous fat had a few stay sutures placed using 2-0 Vicryl. The subcutaneous tissue was closed with 3-0 Vicryl. The skin was closed with Ziplin e and shield. The incisions were covered with 4 x 4's, ABD, and foam tape. The patient was transferred to her hospital bed and taken to the PACU in stable condition. The sponge and needle counts were correct. Post-op Instructions: The patient was admitted to back to the Med/Surg floor. Final x-rays will be obtained in the PACU. The patient will be WBAT with a walker. The patient will be seen by PT/OT. Total hip precautions will be followed. The patient's labs will be checked in the am. DVT prophylaxis will be with TEDs, mechanical devices and re-start her Eliquis in the AM. I attest to the content of the Intraoperative Record and any orders documented therein. Any exceptions are noted below.
--- NOTE | 2023-12-20 14:24 | XRay Report ---
XR hip RT 1V HISTORY: 88 years-old Female RT HIP HEMIARTHROPLASTY COMPARISON: 12/18/2023 TECHNIQUE: AP view of the right hip FINDINGS: Right hip arthroplasty demonstrates satisfactory alignment. Expected postoperative soft tissue swelli ng with deep tissue air. No acute fracture or unexpected opaque foreign body. Arterial calcifications . IMPRESSION: Satisfactory alignment of the right hip arthroplasty. ACT 112: Negative or not required by law. The above report was generated using voice recognition software. It may contain grammatical, syntax o r spelling errors. Electronically signed by: Juan Jose Boss M.D. 12/20/2023 2:23 PM
--- NOTE | 2023-12-20 14:56 | Operative Report ---
Post Operative Report Pre & Post Diagnosis Operation Date: 12/20/23 07:00 Pre-Op Diagnosis: Right hip fracture Post-Op Diagnosis: Right hip fracture I identified the patient and participated in the time-out.: Yes Procedure Operation Date: 12/20/23 07:00 Actual Procedures p Right hip hemiarthroplasty(Right) - Humberto Benavides MD Surgeon Ramiro Benavides MD Slot Machine Floor Person Jazzmine Salguero PA-C & Raymond Gates PA-C Estimated Blood Loss 50 Findings Consistent with Post-Op Diagnosis see operative report Specimens see operative report Drains none Complications none Disposition Accompanied Patient To Recovery: Yes Indications This 88 year old female presented through the ED with complaints of right hip pain [place] She was found to have a right hip fracture. The patient elected to proceed with surgical intervention after being educated about potential risks and outcomes. Preoperative imaging was obtained. Description of Procedure The patient was taken to the operating room where she was administered a general anesthetic. She was prepped and draped in the usual sterile fashion. Please see Dr. Benavides's operative report for specifics of the procedure. I was present for the second half of the case, including prosthesis placement, hip reduction, tissue retraction, and final wound closure. The patient was taken to the recovery room in satisfactory condition. I attest to the content of the Intraoperative Record and any orders documented therein. Any exceptions are noted below.
--- NOTE | 2023-12-20 15:04 | Anesthesiology Progress Note ---
Date of Service December 20, 2023 Anesthesia Post Procedure Vital Signs Vital Signs: Temp Pulse Pulse Resp BP BP Pulse Ox 12/20/23 14:55 97.3 F L 90 16 110/81 98 12/20/23 14:45 94 H 14 117/72 91 12/20/23 14:35 79 18 114/78 93 12/20/23 14:25 96.8 F L 85 16 121/79 99 12/20/23 10:34 98.1 F 85 20 126/86 95 12/20/23 09:32 93 H 16 122/78 98 12/20/23 08:50 12/20/23 07:09 97.5 F L 53 L 16 127/85 96 12/19/23 20:19 97.7 F 98 H 16 109/73 96 12/19/23 18:29 99/68 L 12/19/23 17:00 94/59 L 12/19/23 15:07 91/59 L O2 Del Method O2 Flow Rate 12/20/23 14:55 Nasal Cannula 2 12/20/23 14:45 Room Air 12/20/23 14:35 Room Air 12/20/23 14:25 Oxymask 6 12/20/23 10:34 Room Air 12/20/23 09:32 Room Air 12/20/23 08:50 Room Air 12/20/23 07:09 Room Air 12/19/23 20:19 Room Air 12/19/23 18:29 12/19/23 17:00 12/19/23 15:07 Transfer of Care Handoff Completed per policy Notes Mental Status: alert / awake / arousable and participated in evaluation Patient Amnestic to Procedure: Yes Nausea / Vomiting: adequately controlled Pain: adequately controlled Airway Patency, RR, SpO2: stable & adequate BP & HR: stable & adequate Hydration State: stable & adequate Anesthetic Complications: no major complications apparent and Pt Satisfied with anesthetic care
[2023-12-20] MEDS ORDERED: diphenhydrAMINE 50 MG/ML VIAL IV PRN (15:45)
[2023-12-20] MEDS ORDERED: ALUMINUM/MAGNESIUM SUSP 30 ML UDC PO PRN (15:45)
[2023-12-20] MEDS ORDERED: HYDROmorphone INJ 0.5 MG/0.5 ML SYR IV PRN (15:45)
[2023-12-20] MEDS ORDERED: METOCLOPRAMIDE HCL INJ 5 MG/ML 2 ML VIAL IV PRN ×2 (15:45→16:43)
--- NOTE | 2023-12-20 15:51 | XRay Report ---
XR pelvis 1-2V routine CLINICAL HISTORY: In PACU - Post Surgical TECHNIQUE: A single frontal view of the pelvis was obtained. Comparison: Comparison is made to CT abdomen pelvis 12/18/2023 FINDINGS: Postsurgical changes of right hip arthroplasty are seen. Degenerative changes are seen in the left hi p. IMPRESSION: Postsurgical changes of right hip arthroplasty. ACT 112: Negative or not required by law. Electronically signed by: Kulwinder Blake M.D. 12/20/2023 3:50 PM
[2023-12-20] MEDS: SODIUM CHLORIDE 0.9% 1,000 ML IV SCH (16:01)
--- NOTE | 2023-12-20 16:46 | Hospitalist Progress Note ---
Date of Service December 20, 2023 Assessment & Plan (1) Closed right hip fracture: Plan: following mechanical fall (2) Atrial fibrillation: (3) Diabetes: Plan 88 y/o with afib/flutter, moderate aortic stenosis, diabetes who fell when her partially locked wheelchair rolled away, sustaining right hip fracture Recently she was admitted for L humerus fracture and pelvic fracture after a fall and was found to have afib/flutter Her family reports she was admitted at [facility] 3 weeks ago and was cardioverted, had medication adjustments Osteoporotic right hip fracture - consulted Dr. Benavides. Underwent hip repair 12/19 -doing great postop, BPs have been low side since yesterday -Has IVF at 100/h. Had albumin bolus in OR. Continue same fluids since hypotensive but caution for fluid overload given -pain control APAP, low dose hydromorphone and oxycodone prn -PT/OT -DVT ppx - resuming apixaban in am (ordered) - discussed and ok with ortho She has asymptomatic moderate , no hx chest pain CHF or syncope. -caution with fluid shifts Afib/flutter -holding apixaban, resume in am -continue rate control meds: digoxin, amiodarone - diltiazem and metoprolol were held today for low blood pressure -continue holding diltiazem (not currently ordered), reduce metoprolol to 12.5 mg tid with hold parameters -continue amiodarone and digoxin. amio dose should be decreased to 200 mg daily in about a week. diabetes - A1c was 9.9 in August. she was started on semaglutide - continue blood glucose checks before every meal and at bedtime, not on long- acting insulin, continue Premeal aspart CF 50 - blood glucose has been well-controlled since admission, at goal CKD stage III creatinine was mildly elevated above baseline at 1.3. Improved to 0.76 which is baseline. Avoid NSAIDs -AM BMP osteoporosiscalcium/vitamin D replacement DVT prophylaxis apixaban starting AM 12/20 disposition: she will need a SNF stay for rehab, discussed with care coord, referral made, PT and OT following surgery updated her daughter at bedside today Admission and Anticipated Discharge Date Admission Date: December 18, 2023 Subjective seen postop. doing well. no shortness of breath, CP or nausea. R hip pain controlled. BPs have been low 90s/40s had albumin bolus in OR. we double checked her medlist and its correct. Physical Exam 2 Physical Exam: PHYSICAL EXAMINATION Last 24h vital signs reviewed, see documentation in flowsheet General: comfortable appearing, no distress, lying in bed with warming blanket on HEENT: Normocephalic, atraumatic, pupils round and equal, sclerae anicteric, no conjunctival injection, moist mucus membranes Lungs: Normal respiratory effort. Clear to auscultation bilaterally. No RRW Heart: Regular rate and rhythm, systolic crescendo/decrescendo murmur. No JVD Abdomen: Soft, nontender, nondistended. Bowel sounds present. Extremities: Warm, dry, well-perfused. No extremity edema. R hip dressed and with ice pack. R foot wwp Neuro: Alert and oriented x 4, face symmetric Psych: Normal affect and behavior Results & Data Results & Data Vital Signs (Past 12 Hours) Vital Signs Temp Pulse Pulse Resp BP BP Pulse Ox 12/20/23 16:16 36.3 C L 100 H 16 93/65 L 100 12/20/23 15:45 35.5 C L 89 16 113/78 99 12/20/23 15:30 36.3 C L 82 19 110/72 98 12/20/23 15:15 97 H 16 121/74 93 12/20/23 15:04 91 H 16 112/75 98 12/20/23 14:55 36.3 C L 90 16 110/81 98 12/20/23 14:45 94 H 14 117/72 91 12/20/23 14:35 79 18 114/78 93 12/20/23 14:25 36.0 C L 85 16 121/79 99 12/20/23 10:34 36.7 C 85 20 126/86 95 12/20/23 09:32 93 H 16 122/78 98 12/20/23 08:50 12/20/23 07:09 36.4 C L 53 L 16 127/85 96 O2 Del Method O2 Flow Rate 12/20/23 16:16 Nasal Cannula 2 12/20/23 15:45 Nasal Cannula 2 12/20/23 15:30 Nasal Cannula 2 12/20/23 15:15 Room Air 12/20/23 15:04 Nasal Cannula 2 12/20/23 14:55 Nasal Cannula 2 12/20/23 14:45 Room Air 12/20/23 14:35 Room Air 12/20/23 14:25 Oxymask 6 12/20/23 10:34 Room Air 12/20/23 09:32 Room Air 12/20/23 08:50 Room Air 12/20/23 07:09 Room Air Laboratory Results 12/20/23 08:29 12/20/23 08:29 PG Care Time/CCT Total # of Minutes Spent Total Time Spent with Patient: Total time spent is greater than 50% in coordination of care (as documented) at patient's floor/unit and/or counseling patient: Coding Level of Care Code 46469 SUB INP/OBS CARE 2MIN Diagnoses Closed right hip fracture S72.001A Encounter type: initial encounter Atrial fibrillation I48.91 Diabetes E11.9 (1) Closed right hip fracture Encounter type: initial encounter Qualified Code(s): S72.001A - Fracture of unspecified part of neck of right femur, initial encounter for closed fracture
[2023-12-20] MEDS: FERROUS GLUCONATE 324 MG TAB PO SCH (17:57)
[2023-12-20] MEDS: ASCORBIC ACID 500 MG TAB PO SCH (17:57)
--- NOTE | 2023-12-20 18:07 | Communication Note ---
Date of Service: December 20, 2023 remaining mildly hypotensive moderate IVF at 100 metoprolol and dilt po held continue amio, dig albumin 25g x1 check H/H
[2023-12-20] MEDS: ALBUMIN 25% 25 GM/100 ML VIAL IV ONE (18:18)
[2023-12-20 18:33] LABS: Hematocrit (blood only) 30.3 % (37.0-47.0); Hemoglobin 9.7 g/dl (12.0-16.0)
--- NOTE | 2023-12-20 18:34 | Operative Report ---
Post Operative Report Pre & Post Diagnosis Operation Date: 12/20/23 07:00 Pre-Op Diagnosis: Right hip fracture Post-Op Diagnosis: Right hip fracture I identified the patient and participated in the time-out.: Yes Procedure Operation Date: 12/20/23 07:00 Actual Procedures p Right hip hemiarthroplasty(Right) - Humberto Benavides MD Surgeon Humberto Benavides M.D. [employer] Helper Jazzmine Salguero PA-C & Raymond Gates PA-C Estimated Blood Loss 50 Findings Consistent with Post-Op Diagnosis Specimens right femoral head Anesthesia Type General Description of Procedure Patient was taken to the operating room placed under general anesthesia. She was placed in the left lateral decubitus position. She was given 1 g of IV TXA preoperatively for surgical bleeding prophylaxis. She was also given 2 g of IV Ancef for surgical prophylaxis. I was present during the entire case except for closure and assisted with positioning, tissue retraction, hemostasis, trialing of implants, implantation of hardware, cementing and irrigation of joint. Emmanuel Gates PA-C then relieved me for closure of the surgical incision. Please see Dr. Benavides's operative report for further details regarding today's procedure. Patient was awakened and transferred to the recovery room in stable condition. I attest to the content of the Intraoperative Record and any orders documented therein. Any exceptions are noted below.
[2023-12-20] MEDS: DOCUSATE SODIUM 100 MG CAP PO SCH (20:24)
[2023-12-20] MEDS: METOPROLOL TARTRATE 25 MG TAB PO SCH (20:24)
[2023-12-20] MEDS: SENNA 8.6 MG TAB PO SCH (20:24)
[2023-12-21] MEDS: APIXABAN 2.5 MG TAB PO SCH (08:16)
[2023-12-21] MEDS: MULTIVITAMIN TAB PO SCH (08:16)
[2023-12-21 08:19] LABS: Basophils # (auto) 0.01 K/uL (0.00-0.20); Basophils % (auto) 0.1 %; Hematocrit (blood only) 27.3 % (37.0-47.0); Hemoglobin 8.9 g/dl (12.0-16.0); Immature Granulocytes # (auto) 0.09 K/uL (0.01-0.20); Immature Granulocytes % (auto) 0.8 %; Lymphocytes # (auto) 0.48 K/uL (1.20-3.40); Lymphocytes % (auto) 4.1 %; Mean Corpuscular Hemoglobin 30.4 pg (25.0-34.0); Mean Corpuscular Hgb Conc 32.6 g/dL (32.0-36.0); Mean Corpuscular Volume 93.2 fL (80.0-100.0); Mean Platelet Volume 11.8 fL (9.4-12.4); Monocytes # (auto) 0.65 K/uL (0.11-0.59); Monocytes % (auto) 5.6 %; Neutrophils # (auto) 10.46 K/uL (1.40-6.50); Neutrophils % (auto) 89.4 %; Platelet Count 184 K/uL (130-400); RDW Coefficient of Variation 13.6 % (11.5-14.5); RDW Standard Deviation 46.5 fL (36.4-46.3); Red Blood Count 2.93 M/uL (4.20-5.40); White Blood Count 11.69 K/ul (4.8-10.8)
[2023-12-21 08:43] LABS: BUN Creatinine Ratio 17.7 (10-20); Calcium 8.5 mg/dl (8.6-10.3); Creatinine Clr Calc Pharmacy 41.7 ml/min; Est GFR (African American) 78.6 ml/min; Est GFR (Non-African American) 67.8 ml/min; Potassium 4.3 mmol/L (3.5-5.1)
[2023-12-21] MEDS: POLYETHYLENE (MIRALAX) 17 GM PACK PO SCH (09:26)
[2023-12-21] MEDS: INSULIN ASPART PER UNIT CHARGE SC SCH (17:51)
--- NOTE | 2023-12-21 17:54 | Orthopedic Progress Note ---
Date of Service December 21, 2023 Assessment & Plan (1) Closed right hip fracture: Plan: POD #1 s/p Right hip ford-arthroplasty, doing as well as expected. Resume diet. WBAT with walker. OOB to chair. Continue pain control. Check labs tomorrow. DVT prophylaxis: TEDs 3 weeks, mechanical devices while in hospital, Resume Eliquis. PT/OT. D/C planning. Continue care per primary service Admission and Anticipated Discharge Date Admission Date: December 18, 2023 Subjective Feeling good Physical Exam Physical Exam: Sitting comfortably in a chair. RLE: Sensation to light touch intact distally. Wiggling toes and ankle. 1+ PT pulse. Dressing clean, dry, intact. Results & Data Vital Signs (Past 12 Hours) Vital Signs Temp Pulse Pulse Resp BP Pulse Ox O2 Del Method 12/21/23 14:31 36.4 C L 84 16 101/64 98 Room Air 12/21/23 08:14 89 12/21/23 07:36 36.3 C L 89 16 121/70 96 Room Air 12/21/23 07:25 Room Air Laboratory Results 12/21/23 12/21/23 12/21/23 Range/Units 16:35 11:25 07:58 WBC (4.8-10.8) K/ul RBC (4.20-5.40) M/uL Hgb (12.0-16.0) g/dl Hct (37.0-47.0) % MCV (80.0-100.0) fL MCH (25.0-34.0) pg MCHC (32.0-36.0) g/dL RDW Std Deviation (36.4-46.3) fL RDW Coeff of Joshua (11.5-14.5) % Plt Count (130-400) K/uL MPV (9.4-12.4) fL Immature Gran % (Auto) % Neut % (Auto) % Lymph % (Auto) % [place] % (Auto) % Eos % (Auto) % Baso % (Auto) % Neut # (Auto) (1.40-6.50) K/uL Lymph # (Auto) (1.20-3.40) K/uL [place] # (Auto) (0.11-0.59) K/uL Eos # (Auto) (0.00-0.50) K/uL Baso # (Auto) (0.00-0.20) K/uL Immature Gran # (Auto) (0.01-0.20) K/uL Sodium (136-145) mmol/L Potassium (3.5-5.1) mmol/L Chloride (98-107) mmol/L Carbon Dioxide (21-32) mmol/L Anion Gap (3-11) BUN (6-23) mg/dl Creatinine (0.6-1.2) mg/dl Est Cr Clr Drug Dosing ml/min Est GFR ( Amer) ml/min Est GFR (Non-Af Amer) ml/min BUN/Creatinine Ratio (10-20) Glucose (70-99(Fasting)) mg/dl POC Glucose 224 H 258 H 157 H (70-99) mg/dl Calcium (8.6-10.3) mg/dl 12/21/23 12/20/23 12/20/23 Range/Units 07:43 21:10 18:20 WBC 11.69 H (4.8-10.8) K/ul RBC 2.93 L (4.20-5.40) M/uL Hgb 8.9 L 9.7 L (12.0-16.0) g/dl Hct 27.3 L 30.3 L (37.0-47.0) % MCV 93.2 (80.0-100.0) fL MCH 30.4 (25.0-34.0) pg MCHC 32.6 (32.0-36.0) g/dL RDW Std Deviation 46.5 H (36.4-46.3) fL RDW Coeff of Joshua 13.6 (11.5-14.5) % Plt Count 184 (130-400) K/uL MPV 11.8 (9.4-12.4) fL Immature Gran % (Auto) 0.8 % Neut % (Auto) 89.4 % Lymph % (Auto) 4.1 % [place] % (Auto) 5.6 % Eos % (Auto) 0.0 % Baso % (Auto) 0.1 % Neut # (Auto) 10.46 H (1.40-6.50) K/uL Lymph # (Auto) 0.48 L (1.20-3.40) K/uL [place] # (Auto) 0.65 H (0.11-0.59) K/uL Eos # (Auto) 0.00 (0.00-0.50) K/uL Baso # (Auto) 0.01 (0.00-0.20) K/uL Immature Gran # (Auto) 0.09 (0.01-0.20) K/uL Sodium 138 (136-145) mmol/L Potassium 4.3 (3.5-5.1) mmol/L Chloride 104 (98-107) mmol/L Carbon Dioxide 25 (21-32) mmol/L Anion Gap 9 (3-11) BUN 14 (6-23) mg/dl Creatinine 0.79 (0.6-1.2) mg/dl Est Cr Clr Drug Dosing 41.7 ml/min Est GFR ( Amer) 78.6 ml/min Est GFR (Non-Af Amer) 67.8 ml/min BUN/Creatinine Ratio 17.7 (10-20) Glucose 147 H (70-99(Fasting)) mg/dl POC Glucose 220 H (70-99) mg/dl Calcium 8.5 L (8.6-10.3) mg/dl Diagnostic Findings XR pelvis 1-2V routine CLINICAL HISTORY: In PACU - Post Surgical TECHNIQUE: A single frontal view of the pelvis was obtained. Comparison: Comparison is made to CT abdomen pelvis 12/18/2023 FINDINGS: Postsurgical changes of right hip arthroplasty are seen. Degenerative changes are seen in the left hip. IMPRESSION: Postsurgical changes of right hip arthroplasty. ACT 112: Negative or not required by law. Electronically signed by: Kulwinder Blake M.D. 12/20/2023 3:50 PM (1) Closed right hip fracture Encounter type: initial encounter Qualified Code(s): S72.001A - Fracture of unspecified part of neck of right femur, initial encounter for closed fracture
--- NOTE | 2023-12-21 18:47 | Hospitalist Progress Note ---
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: Plan: RIGHT hip POD #1 s/p ORIF by Dr Benavides, [facility] Appreciate orthopedic assistance DVT Proph - Eliquis 2.5mg BID Check 25-OH vit D level am Pain control Bowel regimen PT, OT as tolerated Dispo - [facility] for rehab after discharge (2) Acute blood loss anemia: Plan: Presenting Hb 12.6 Now <9 today Repeat CBC in am Will start ferrous gluconate (3) Severe protein-calorie malnutrition: Plan: 20+ pounds of weight loss last 6+ months per patient TSH wnl in August 2023 Having some upper GI symptoms - would benefit from EGD when able Add boost Cont MVI (4) Atrial fibrillation: Plan: Uncontrolled yesterday Improved today Cont amiodarone 200mg BID (being used for rate control?? --- she reports that recent cardioversion attempt at [facility] was not successful) Cont metoprolol Cont digoxin Check a dig level while here Cont Eliquis 2.5mg BID (5) Diabetes: Plan: last a1c 9.9% in August 2023 repeat while here add novolog SSI likely needs basal as well (6) FAWN (acute kidney injury): Plan: Peak Cr 1.3 now 0.79 today (7) Dysphagia: Plan: will ask speech therapy for swallow eval in light of weight loss will send to GI for consideration of EGD cont PPI Plan Other chronic issues - * moderate - no issues at this time * CKD stage III - repeat BMP in am for stability * osteoporosiscalcium/vitamin D replacement; check 25-OH vit D level am; would benefit from outpatient DEXA DVT prophylaxis - Eliquis cont PT, OT updated pt's niece by phone this evening Admission and Anticipated Discharge Date Admission Date: December 18, 2023 Subjective patient resting comfortably in bed minimal pain R hip at rest "I feel good" eating well here in the hospital, but mentions a significant amount of weight loss over the last 6 months (20+ pounds) has had trouble swallowing - no pain with such, but things "get stuck" remembers having had an EGD years ago with dilatation done did have a stool today Review of Systems Review of Systems: gen - weight loss as noted above cv - no chest pain, no orthopnea pulm - no dyspnea or [facility] - no N/V; some heartburn symptoms neuro - denies balance issues - recent falls were accidental; no prodromal dizziness, etc Physical Exam Physical Exam: gen - thin, but NAD, pleasant neck - no JVD mouth - MMM heart - RRR, s1 s2, 2-3/6 holosystolic murmur loudest RUSB lungs - CTA b/l abd - soft NT ND BS+ musculo - right thigh with mild swelling, dressings intact R lateral thigh/hip ext - no ankle edema, pulses 2+ b/l psych - a/o x 3 Results & Data Results & Data Vital Signs (Past 12 Hours) Vital Signs Temp Pulse Pulse Resp BP Pulse Ox O2 Del Method 12/21/23 14:31 36.4 C L 84 16 101/64 98 Room Air 12/21/23 08:14 89 12/21/23 07:36 36.3 C L 89 16 121/70 96 Room Air 12/21/23 07:25 Room Air Laboratory Results Laboratory Results - last 48 hr 12/20/23 12/20/23 12/20/23 08:29 10:46 16:54 WBC 7.08 RBC 3.45 L Hgb 10.6 L Hct 31.6 L MCV 91.6 MCH 30.7 MCHC 33.5 RDW Std Deviation 45.6 RDW Coeff of Joshua 13.5 Plt Count 192 MPV 11.2 Immature Gran % (Auto) 0.4 Neut % (Auto) 79.4 Lymph % (Auto) 10.2 [place] % (Auto) 8.3 Eos % (Auto) 1.4 Baso % (Auto) 0.3 Neut # (Auto) 5.62 Lymph # (Auto) 0.72 L [place] # (Auto) 0.59 Eos # (Auto) 0.10 Baso # (Auto) 0.02 Immature Gran # (Auto) 0.03 Sodium 135 L Potassium 3.9 Chloride 99 Carbon Dioxide 29 Anion Gap 7 BUN 14 Creatinine 0.76 Est Cr Clr Drug Dosing 43.4 Est GFR ( Amer) 82.3 Est GFR (Non-Af Amer) 71.0 BUN/Creatinine Ratio 18.4 Glucose 118 H POC Glucose 108 H 181 H Calcium 8.4 L 12/20/23 12/20/23 12/21/23 18:20 21:10 07:43 WBC 11.69 H RBC 2.93 L Hgb 9.7 L 8.9 L Hct 30.3 L 27.3 L MCV 93.2 MCH 30.4 MCHC 32.6 RDW Std Deviation 46.5 H RDW Coeff of Joshua 13.6 Plt Count 184 MPV 11.8 Immature Gran % (Auto) 0.8 Neut % (Auto) 89.4 Lymph % (Auto) 4.1 [place] % (Auto) 5.6 Eos % (Auto) 0.0 Baso % (Auto) 0.1 Neut # (Auto) 10.46 H Lymph # (Auto) 0.48 L [place] # (Auto) 0.65 H Eos # (Auto) 0.00 Baso # (Auto) 0.01 Immature Gran # (Auto) 0.09 Sodium 138 Potassium 4.3 Chloride 104 Carbon Dioxide 25 Anion Gap 9 BUN 14 Creatinine 0.79 Est Cr Clr Drug Dosing 41.7 Est GFR ( Amer) 78.6 Est GFR (Non-Af Amer) 67.8 BUN/Creatinine Ratio 17.7 Glucose 147 H POC Glucose 220 H Calcium 8.5 L 12/21/23 12/21/23 12/21/23 07:58 11:25 16:35 WBC RBC Hgb Hct MCV MCH MCHC RDW Std Deviation RDW Coeff of Joshua Plt Count MPV Immature Gran % (Auto) Neut % (Auto) Lymph % (Auto) [place] % (Auto) Eos % (Auto) Baso % (Auto) Neut # (Auto) Lymph # (Auto) [place] # (Auto) Eos # (Auto) Baso # (Auto) Immature Gran # (Auto) Sodium Potassium Chloride Carbon Dioxide Anion Gap BUN Creatinine Est Cr Clr Drug Dosing Est GFR ( Amer) Est GFR (Non-Af Amer) BUN/Creatinine Ratio Glucose POC Glucose 157 H 258 H 224 H Calcium PG Care Time/CCT Total # of Minutes Spent Total Time Spent with Patient: Total time spent is greater than 50% in coordination of care (as documented) at patient's floor/unit and/or counseling patient: Coding Level of Care Code 77238 SUB INP/OBS CARE 3/50MIN Diagnoses 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
[2023-12-21] MEDS ORDERED: INSULIN ASPART PER UNIT CHARGE SC SCH (21:00)
[2023-12-22 08:39] LABS: Basophils # (auto) 0.01 K/uL (0.00-0.20); Basophils % (auto) 0.1 %; Eosinophils # (auto) 0.08 K/uL (0.00-0.50); Eosinophils % (auto) 0.9 %; Hematocrit (blood only) 29.3 % (37.0-47.0); Hemoglobin 9.5 g/dl (12.0-16.0); Immature Granulocytes # (auto) 0.06 K/uL (0.01-0.20); Immature Granulocytes % (auto) 0.7 %; Lymphocytes # (auto) 0.93 K/uL (1.20-3.40); Lymphocytes % (auto) 10.5 %; Mean Corpuscular Hemoglobin 30.4 pg (25.0-34.0); Mean Corpuscular Hgb Conc 32.4 g/dL (32.0-36.0); Mean Corpuscular Volume 93.6 fL (80.0-100.0); Mean Platelet Volume 11.8 fL (9.4-12.4); Monocytes # (auto) 0.56 K/uL (0.11-0.59); Monocytes % (auto) 6.3 %; Neutrophils # (auto) 7.21 K/uL (1.40-6.50); Neutrophils % (auto) 81.5 %; Platelet Count 203 K/uL (130-400); RDW Coefficient of Variation 13.8 % (11.5-14.5); RDW Standard Deviation 47.2 fL (36.4-46.3); Red Blood Count 3.13 M/uL (4.20-5.40); White Blood Count 8.85 K/ul (4.8-10.8)
[2023-12-22 08:55] LABS: BUN Creatinine Ratio 17.4 (10-20); Calcium 8.8 mg/dl (8.6-10.3); Creatinine Clr Calc Pharmacy 47.8 ml/min; Est GFR (African American) 91.4 ml/min; Est GFR (Non-African American) 78.8 ml/min
--- NOTE | 2023-12-22 08:56 | Orthopedic Progress Note ---
Date of Service December 22, 2023 Assessment & Plan (1) Closed right hip fracture: Plan: POD #2 s/p Right hip ford-arthroplasty, doing as well as expected. Resume diet. WBAT with walker. OOB to chair. Continue pain control. Total hip precautions. Will change dressing to Silverlon later today. DVT prophylaxis: TEDs 3 weeks, mechanical devices while in hospital, Resume Eliquis. PT/OT. D/C planning. Continue care per primary service Admission and Anticipated Discharge Date Admission Date: December 18, 2023 Subjective Doing well, without complaints. Physical Exam Physical Exam: Resting comfortably in bed with pillow between legs. RLE: Sensation to light touch intact distally. Wiggling toes and ankle. 1+ PT pulse. Dressing clean, dry, intact. Results & Data Vital Signs (Past 12 Hours) Vital Signs Temp Pulse Resp BP Pulse Ox O2 Del Method 12/22/23 07:20 Room Air 12/22/23 07:10 36.6 C 91 H 18 109/74 96 Room Air Laboratory Results 12/22/23 12/22/23 12/21/23 Range/Units 08:05 07:26 20:52 WBC 8.85 (4.8-10.8) K/ul RBC 3.13 L (4.20-5.40) M/uL Hgb 9.5 L (12.0-16.0) g/dl Hct 29.3 L (37.0-47.0) % MCV 93.6 (80.0-100.0) fL MCH 30.4 (25.0-34.0) pg MCHC 32.4 (32.0-36.0) g/dL RDW Std Deviation 47.2 H (36.4-46.3) fL RDW Coeff of Joshua 13.8 (11.5-14.5) % Plt Count 203 (130-400) K/uL MPV 11.8 (9.4-12.4) fL Immature Gran % (Auto) 0.7 % Neut % (Auto) 81.5 % Lymph % (Auto) 10.5 % [place] % (Auto) 6.3 % Eos % (Auto) 0.9 % Baso % (Auto) 0.1 % Neut # (Auto) 7.21 H (1.40-6.50) K/uL Lymph # (Auto) 0.93 L (1.20-3.40) K/uL [place] # (Auto) 0.56 (0.11-0.59) K/uL Eos # (Auto) 0.08 (0.00-0.50) K/uL Baso # (Auto) 0.01 (0.00-0.20) K/uL Immature Gran # (Auto) 0.06 (0.01-0.20) K/uL Sodium 141 (136-145) mmol/L Potassium 4.0 (3.5-5.1) mmol/L Chloride 105 (98-107) mmol/L Carbon Dioxide 31 (21-32) mmol/L Anion Gap 5 (3-11) BUN 12 (6-23) mg/dl Creatinine 0.69 (0.6-1.2) mg/dl Est Cr Clr Drug Dosing 47.8 ml/min Est GFR ( Amer) 91.4 ml/min Est GFR (Non-Af Amer) 78.8 ml/min BUN/Creatinine Ratio 17.4 (10-20) Glucose 113 H (70-99(Fasting)) mg/dl POC Glucose 124 H 185 H (70-99) mg/dl Calcium 8.8 (8.6-10.3) mg/dl Vitamin B12 Pending 25-OH Vitamin D Total Pending 12/21/23 12/21/23 Range/Units 16:35 11:25 WBC (4.8-10.8) K/ul RBC (4.20-5.40) M/uL Hgb (12.0-16.0) g/dl Hct (37.0-47.0) % MCV (80.0-100.0) fL MCH (25.0-34.0) pg MCHC (32.0-36.0) g/dL RDW Std Deviation (36.4-46.3) fL RDW Coeff of Joshua (11.5-14.5) % Plt Count (130-400) K/uL MPV (9.4-12.4) fL Immature Gran % (Auto) % Neut % (Auto) % Lymph % (Auto) % [place] % (Auto) % Eos % (Auto) % Baso % (Auto) % Neut # (Auto) (1.40-6.50) K/uL Lymph # (Auto) (1.20-3.40) K/uL [place] # (Auto) (0.11-0.59) K/uL Eos # (Auto) (0.00-0.50) K/uL Baso # (Auto) (0.00-0.20) K/uL Immature Gran # (Auto) (0.01-0.20) K/uL Sodium (136-145) mmol/L Potassium (3.5-5.1) mmol/L Chloride (98-107) mmol/L Carbon Dioxide (21-32) mmol/L Anion Gap (3-11) BUN (6-23) mg/dl Creatinine (0.6-1.2) mg/dl Est Cr Clr Drug Dosing ml/min Est GFR ( Amer) ml/min Est GFR (Non-Af Amer) ml/min BUN/Creatinine Ratio (10-20) Glucose (70-99(Fasting)) mg/dl POC Glucose 224 H 258 H (70-99) mg/dl Calcium (8.6-10.3) mg/dl Vitamin B12 25-OH Vitamin D Total (1) Closed right hip fracture Encounter type: initial encounter Qualified Code(s): S72.001A - Fracture of unspecified part of neck of right femur, initial encounter for closed fracture
--- NOTE | 2023-12-22 21:45 | Hospitalist Progress Note ---
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: Plan: RIGHT hip POD #2 s/p ORIF by Dr Benavides, [facility] Appreciate orthopedic assistance DVT Proph - Eliquis 2.5mg BID 25-OH vit D level - 44 Pain control prn Bowel regimen Cont PT/OT -- doing very well, can likely return home at d/c with home PT/OT/nursing and caregivers from various family members (2) Acute blood loss anemia: Plan: Presenting Hb 12.6 Now 9.5 today Cont ferrous gluconate 325mg BID Check nutritional labs in am tomorrow (3) Severe protein-calorie malnutrition: Plan: 20+ pounds of weight loss last 6+ months per patient TSH wnl in August 2023 Having some upper GI symptoms - would benefit from EGD when able Cont MVI (4) Atrial fibrillation: Plan: Adequate control Cont amiodarone 200mg BID (being used for rate control?? --- she reports that recent cardioversion attempt at [facility] was not successful) Cont metoprolol Cont digoxin ; check dig level tomorrow am Cont Eliquis 2.5mg BID (5) Diabetes: Plan: last a1c 9.9% in August 2023 repeat a1c tomorrow am novolog SSI (6) FAWN (acute kidney injury): Plan: Peak Cr 1.3 resolved (7) Dysphagia: Plan: appreciate speech therapy consult diet consistency changed to soft/bite sized in light of weight loss will send to GI for consideration of EGD post-discharge cont PPI Plan Other chronic issues - * moderate - no issues at this time * CKD stage III - repeat BMP today stable * osteoporosiscalcium/vitamin D replacement; 25-OH vit D level today wnl; would benefit from outpatient DEXA DVT prophylaxis - Eliquis cont PT, OT updated pt's niece by phone yesterday evening dispo - home with services on 12/23 Admission and Anticipated Discharge Date Admission Date: December 18, 2023 Subjective uneventful day today worked with PT and did very well PT reported she could return home with caregivers as opposed to going to rehab minimal right hip pain eating ok saw speech; diet modification made (soft bite sized recommended) moving bowels Review of Systems Review of Systems: cv - no chest pain pulm - no dyspnea or [facility] - no nausea/emesis or abd pain Physical Exam Physical Exam: gen - thin, NAD, looks well neck - no JVD mouth - MMM heart - irregular, rate <100, s1 s2, 2-3/6 holosystolic murmur loudest RUSB lungs - CTA b/l abd - soft NT ND BS+ musculo - right thigh with mild swelling, dressings intact R lateral thigh/hip ext - no ankle edema, pulses 2+ b/l psych - a/o x 3 Results & Data Results & Data Vital Signs (Past 12 Hours) Vital Signs Temp Pulse Resp BP BP Pulse Ox O2 Del Method 12/22/23 19:58 36.5 C 97 H 14 94/60 L 94 Room Air 12/22/23 14:13 36.5 C 88 16 101/63 95 Room Air Laboratory Results Laboratory Results - last 24 hr 12/22/23 12/22/23 12/22/23 07:26 08:05 11:25 WBC 8.85 RBC 3.13 L Hgb 9.5 L Hct 29.3 L MCV 93.6 MCH 30.4 MCHC 32.4 RDW Std Deviation 47.2 H RDW Coeff of Joshua 13.8 Plt Count 203 MPV 11.8 Immature Gran % (Auto) 0.7 Neut % (Auto) 81.5 Lymph % (Auto) 10.5 [place] % (Auto) 6.3 Eos % (Auto) 0.9 Baso % (Auto) 0.1 Neut # (Auto) 7.21 H Lymph # (Auto) 0.93 L [place] # (Auto) 0.56 Eos # (Auto) 0.08 Baso # (Auto) 0.01 Immature Gran # (Auto) 0.06 Sodium 141 Potassium 4.0 Chloride 105 Carbon Dioxide 31 Anion Gap 5 BUN 12 Creatinine 0.69 Est Cr Clr Drug Dosing 47.8 Est GFR ( Amer) 91.4 Est GFR (Non-Af Amer) 78.8 BUN/Creatinine Ratio 17.4 Glucose 113 H POC Glucose 124 H 145 H Calcium 8.8 Vitamin B12 1436 H 25-OH Vitamin D Total 44.0 12/22/23 12/22/23 16:30 20:23 WBC RBC Hgb Hct MCV MCH MCHC RDW Std Deviation RDW Coeff of Joshua Plt Count MPV Immature Gran % (Auto) Neut % (Auto) Lymph % (Auto) [place] % (Auto) Eos % (Auto) Baso % (Auto) Neut # (Auto) Lymph # (Auto) [place] # (Auto) Eos # (Auto) Baso # (Auto) Immature Gran # (Auto) Sodium Potassium Chloride Carbon Dioxide Anion Gap BUN Creatinine Est Cr Clr Drug Dosing Est GFR ( Amer) Est GFR (Non-Af Amer) BUN/Creatinine Ratio Glucose POC Glucose 125 H 150 H Calcium Vitamin B12 25-OH Vitamin D Total PG Care Time/CCT Total # of Minutes Spent Total Time Spent with Patient: Total time spent is greater than 50% in coordination of care (as documented) at patient's floor/unit and/or counseling patient: Coding Level of Care Code 75633 SUB INP/OBS CARE 235MIN Diagnoses 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
[2023-12-23 07:44] LABS: Ferritin 353.7 ng/ml (8-388)
--- NOTE | 2023-12-23 08:01 | Hospitalist Progress Note ---
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-related osteoporosis: Plan: RIGHT hip POD #3 s/p ORIF by Dr Benavides, [facility] Appreciate orthopedic assistance DVT Proph - Eliquis 2.5mg BID 25-OH vit D level - 44 Pain control prn Bowel regimen Cont PT/OT Dispo - returning home with family at d/c with home PT/OT/nursing and caregivers from various family members (2) Acute blood loss anemia: Plan: Presenting Hb 12.6 9.5 on 12/22/23 Fe studies noted - transferrin sat is <20%, but ferritin is 353 (likely high due to acute phase) Cont ferrous gluconate 325mg BID Has folate deficiency - see below (3) Severe protein-calorie malnutrition: Plan: 20+ pounds of weight loss last 6+ months per patient TSH wnl in August 2023 Having some upper GI symptoms - would benefit from EGD when able I spoke with pt's family by phone this evening - last EGD was performed in [place] several years ago Refer back to GI after her hip recovers Cont MVI (4) Atrial fibrillation: Plan: Rates modestly fast at times Cont amiodarone 200mg BID for now, but clearly it is not controlling the rhythm (being used for rate control?? --- she reports that recent cardioversion attempt at [facility] was not successful) Cont metoprolol but increase dose from 12.5mg TID to 25mg TID Cont digoxin ; dig level acceptable today Hold on restarting diltiazem CD Cont Eliquis 2.5mg BID (5) Diabetes: Plan: last a1c 9.9% in August 2023 a1c 7.5% today - likely due to significant weight loss over the last few weeks loose novolog SSI (6) FAWN (acute kidney injury): Plan: Peak Cr 1.3 resolved (7) Dysphagia: Plan: appreciate speech therapy consult diet consistency changed to soft/bite sized in light of weight loss will send to GI for consideration of EGD post-discharge cont PPI (8) Pressure ulcer of sacral region, stage 2: Plan: appreciate wound care assistance (9) Folate deficiency: Plan: level is 4.3 start folic acid 1mg daily x 30 days Plan Other chronic issues - * moderate - no issues at this time * CKD stage III - no issues today * osteoporosiscalcium/vitamin D replacement; 25-OH vit D level wnl; would benefit from outpatient DEXA DVT prophylaxis - Genoveva finch PT, OT dispo - home with HH services on 12/23 updated Genoveva Ash - pt's niece - this evening [phone] Admission and Anticipated Discharge Date Admission Date: December 18, 2023 Subjective walked very well with PT today no dizziness, lightheadedness, or dyspnea good energy eating decently no dysphagia happy about going home tomorrow denies any R hip pain Review of Systems Review of Systems: cv - no chest pain, no palpitations pulm - no dyspnea or [facility] - no abd pain or N/V Physical Exam Physical Exam: gen - thin, NAD, looks well neck - no JVD mouth - MMM heart - irregular, rate ~100 BPM, s1 s2, 2-3/6 holosystolic murmur loudest RUSB lungs - CTA b/l abd - soft NT ND BS+ ext - no ankle edema, pulses 2+ b/l psych - a/o x 3 Results & Data Results & Data Vital Signs (Past 12 Hours) Vital Signs Temp Pulse Resp BP Pulse Ox O2 Del Method 12/23/23 07:50 36.4 C L 104 H 18 127/74 97 Room Air 12/22/23 22:24 78 12/22/23 22:20 105/70 12/22/23 20:06 Room Air Laboratory Results Laboratory Results - last 24 hr 12/23/23 12/23/23 12/23/23 05:31 07:48 11:36 POC Glucose 132 H 141 H Estimat Average Glucose 169 Hemoglobin A1c 7.5 H Iron 18 L TIBC 189 L Unsaturated IBC 171 Transferrin % Sat 10 L Ferritin 353.7 Vitamin B1 Pending Folate 4.32 L Digoxin 0.9 12/23/23 12/23/23 16:26 20:27 POC Glucose 126 H 193 H Estimat Average Glucose Hemoglobin A1c Iron TIBC Unsaturated IBC Transferrin % Sat Ferritin Vitamin B1 Folate Digoxin PG Care Time/CCT Total # of Minutes Spent Total Time Spent with Patient: Total time spent is greater than 50% in coordination of care (as documented) at patient's floor/unit and/or counseling patient: Coding Level of Care Code 12787 SUB INP/OBS CARE 2/35MIN Diagnoses 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
[2023-12-23 08:14] LABS: Estimated Average Glucose 169 mg/dl; Hemoglobin A1C 7.5 % (4.5-5.6)
--- NOTE | 2023-12-23 08:59 | Orthopedic Progress Note ---
Date of Service December 23, 2023 Assessment & Plan (1) Closed right hip fracture: Plan: POD #3 s/p Right hip ford-arthroplasty, doing as well as expected. Resume diet. WBAT with walker. OOB to chair. Continue pain control. Total hip precautions. DVT prophylaxis: TEDs 3 weeks, mechanical devices while in hospital, Resume Eliquis. PT/OT. D/C planning. Ok for discharge from Orthopedic standpoint when medically cleared. Continue care per primary service Admission and Anticipated Discharge Date Admission Date: December 18, 2023 Supervising Physician Co-Signing Physician Notes I, Dr. Benavides, saw and examined the patient this am and agree with the above findings and plan of care I discussed with my PA. Subjective Doing well. No pain in right hip. Eating breakfast. States that she is please with how well she is doing. Physical Exam Musculoskeletal: Right hip silverlon intact. Mild edema of right thigh, nontender to palpation. no distal edema. Distal pulses 1+, tolerates gentle log rolling of right leg. Results & Data Vital Signs (Past 12 Hours) Vital Signs Temp Pulse Pulse Resp BP Pulse Ox O2 Del Method 12/23/23 08:46 100 H 12/23/23 07:50 36.4 C L 104 H 18 127/74 97 Room Air 12/22/23 22:24 78 12/22/23 22:20 105/70 Laboratory Results 12/23/23 12/23/23 12/22/23 Range/Units 07:48 05:31 20:23 POC Glucose 132 H 150 H (70-99) mg/dl Estimat Average Glucose 169 mg/dl Hemoglobin A1c 7.5 H (4.5-5.6) % Iron 18 L (35-150) mcg/dl TIBC 189 L (250-450) mcg/dl Unsaturated IBC 171 (155-355) mcg/dl Transferrin % Sat 10 L (15-50) % Ferritin 353.7 (8-388) ng/ml Vitamin B1 Pending Vitamin B12 (180-914) pg/ml 25-OH Vitamin D Total (30-100) ng/ml Folate 4.32 L (>5.38) ng/ml Digoxin 0.9 (0.8-2.0) ng/ml 12/22/23 12/22/23 12/22/23 Range/Units 16:30 11:25 08:05 POC Glucose 125 H 145 H (70-99) mg/dl Estimat Average Glucose mg/dl Hemoglobin A1c (4.5-5.6) % Iron (35-150) mcg/dl TIBC (250-450) mcg/dl Unsaturated IBC (155-355) mcg/dl Transferrin % Sat (15-50) % Ferritin (8-388) ng/ml Vitamin B1 Vitamin B12 1436 H (180-914) pg/ml 25-OH Vitamin D Total 44.0 (30-100) ng/ml Folate (>5.38) ng/ml Digoxin (0.8-2.0) ng/ml (1) Closed right hip fracture Encounter type: initial encounter Qualified Code(s): S72.001A - Fracture of unspecified part of neck of right femur, initial encounter for closed fracture
[2023-12-23] MEDS ORDERED: dilTIAZem HCL 120 MG CAPCR PO SCH (19:15)
[2023-12-23] MEDS: dilTIAZem HCL 30 MG TAB PO SCH (19:57)
[2023-12-23] MEDS: FOLIC ACID 1 MG TAB PO SCH (20:10)
[2023-12-23] MEDS: METOPROLOL TARTRATE 25 MG TAB PO SCH (20:49)
[2023-12-23] MEDS: THIAMINE HCL 100 MG TAB PO SCH (20:50)
[2023-12-24 07:53] VITALS: RESP 16; TEMP 97.3
[2023-12-24 08:52] LABS: Hematocrit (blood only) 29.4 % (37.0-47.0); Hemoglobin 9.6 g/dl (12.0-16.0); Mean Corpuscular Hemoglobin 30.7 pg (25.0-34.0); Mean Corpuscular Hgb Conc 32.7 g/dL (32.0-36.0); Mean Corpuscular Volume 93.9 fL (80.0-100.0); Mean Platelet Volume 11.3 fL (9.4-12.4); Platelet Count 209 K/uL (130-400); RDW Coefficient of Variation 13.8 % (11.5-14.5); RDW Standard Deviation 47.1 fL (36.4-46.3); Red Blood Count 3.13 M/uL (4.20-5.40)
[2023-12-24 09:07] LABS: BUN Creatinine Ratio 19.4 (10-20); Calcium 8.6 mg/dl (8.6-10.3); Creatinine Clr Calc Pharmacy 49.2 ml/min; Est GFR (African American) 92.2 ml/min; Est GFR (Non-African American) 79.6 ml/min; Potassium 3.9 mmol/L (3.5-5.1)
--- NOTE | 2023-12-24 09:10 | Orthopedic Progress Note ---
Date of Service December 24, 2023 Assessment & Plan (1) Closed right hip fracture: Plan: POD #5 s/p Right hip ford-arthroplasty, doing as well as expected. Continue normal diet. WBAT with walker. OOB to chair. Continue pain control. Total hip precautions. DVT prophylaxis: TEDs 3 weeks, mechanical devices while in hospital, Resume Eliquis. PT/OT. D/C planning. Ok for discharge from Orthopedic standpoint when medically cleared. Continue care per primary service She may shower directly over the Silverlon. Keep it in place until seen in the office on 06 January. Admission and Anticipated Discharge Date Admission Date: December 18, 2023 Subjective This 88-year-old female is seen today in her room. She is 6-day status post right hip hemiarthroplasty. She states she is doing well. She has minimal pain. She is only using Tylenol for pain control. She states she has been participating in physical therapy. She anticipates going home today with her family and having home health. No other complaints. Physical Exam Physical Exam: General: Well-developed, well-nourished, elderly female, in no acute distress. Laying in bed. Alert and oriented. She has just finished her breakfast. Skin: Warm and dry with good turgor. No rashes. Expected postoperative edema and mild ecchymosis present around the right hip. Silverlon dressing is in place. There is no bleeding through the dressing. Musculoskeletal: The patient has intact motor function of the right hip, knee, and ankle. Hip motion does cause an increase in her discomfort. Supple motion passively for flexion as well as rotation. She is able to do a straight leg raise with minimal assistance. Neurologic: Gross sensation is intact across the right leg and hip by soft touch. Peripheral pulses are 2+. Results & Data Vital Signs (Past 12 Hours) Vital Signs Temp Pulse Resp BP Pulse Ox O2 Del Method 12/24/23 07:52 36.3 C L 101 H 16 151/82 H 97 Room Air 12/24/23 07:25 Room Air Laboratory Results CBC obtained today shows a white count of 5.6. Hemoglobin of 6.6 and hematocrit 29.4. Platelets 209,000. (1) Closed right hip fracture Encounter type: initial encounter Qualified Code(s): S72.001A - Fracture of unspecified part of neck of right femur, initial encounter for closed fracture
[2023-12-24] MEDS: METOPROLOL TARTRATE 25 MG TAB PO STA (12:33)
[2023-12-24 15:24] VITALS: BP 109/73; PULSE 86; O2SAT 98
--- NOTE | 2023-12-24 17:16 | Discharge Summary ---
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: RIGHT hip POD #3 s/p ORIF by Dr Benavides, [facility] Appreciate orthopedic assistance DVT Proph - Eliquis 2.5mg BID 25-OH vit D level - 44 Pain control prn Bowel regimen Cont PT/OT Dispo - returning home with family at d/c with home PT/OT/nursing and caregivers from various family members (2) Acute blood loss anemia: Presenting Hb 12.6 9.5 on 12/22/23 Fe studies noted - transferrin sat is <20%, but ferritin is 353 (likely high due to acute phase) Cont ferrous gluconate 325mg BID Has folate deficiency - see below (3) Severe protein-calorie malnutrition: 20+ pounds of weight loss last 6+ months per patient TSH wnl in August 2023 Having some upper GI symptoms - would benefit from EGD when able I spoke with pt's family by phone this evening - last EGD was performed in [place] several years ago Refer back to GI after her hip recovers Cont MVI (4) Atrial fibrillation: Rates modestly fast at times Cont amiodarone 200mg BID for now, but clearly it is not controlling the rhythm (being used for rate control?? --- she reports that recent cardioversion attempt at [facility] was not successful) Cont metoprolol but increase dose from 12.5mg TID to 25mg TID Cont digoxin ; dig level acceptable today Hold on restarting diltiazem CD Cont Eliquis 2.5mg BID (5) Diabetes: last a1c 9.9% in August 2023 a1c 7.5% today - likely due to significant weight loss over the last few weeks loose novolog SSI (6) FAWN (acute kidney injury): Peak Cr 1.3 resolved (7) Dysphagia: appreciate speech therapy consult diet consistency changed to soft/bite sized in light of weight loss will send to GI for consideration of EGD post-discharge cont PPI (8) Pressure ulcer of sacral region, stage 2: appreciate wound care assistance (9) Folate deficiency: level is 4.3 start folic acid 1mg daily x 30 days Plan Other chronic issues - * moderate - no issues at this time * CKD stage III - no issues today * osteoporosiscalcium/vitamin D replacement; 25-OH vit D level wnl; would benefit from outpatient DEXA DVT prophylaxis - Eliquis cont PT, OT dispo - home with HH services on 12/23 emre Ash - pt's niece - this evening [phone] Admission HPI Per Admitting Provider Alicia is an 88-year-old female with a past medical history significant for atrial fibrillation (on Eliquis), DMII, recurrent falls, GERD, anemia, and osteoporosis who presented to [facility] ED on 12/18/2023 due to right hip pain after falling off a chair at home. On arrival to the ED she was noted to be tachycardic with heart rate of 104 but otherwise stable. Labs were significant for leukocytosis of 10 with neutrophil predominance of 8, creatinine of 1.30 (baseline is near 1.0). CT of the head and brain without contrast, cervical spine CT, and chest x-ray were read as negative for acute findings. CT of the abdomen pelvis with IV contrast showed an acute comminuted, mildly angulated, displaced and impacted right femoral neck fracture. Healing subacute nondisplaced left sacral and pelvic ring fracture deformities. Gallbladder sludge versus cholelithiasis but otherwise without acute findings. X-ray of the pelvis and right femur confirmed findings of the CT of the abdomen pelvis with contrast. Orthopedics was consulted and will follow with eventual plans for OR but patient will need to be off Eliquis for approximately 48 hours. Prior to admission the patient was given 4 mg IV morphine. Patient was lying in bed in no acute distress at the time exam with her nephew (Phani Salomon) and his (Sade Salomon) sitting bedside, history is obtained from all. The patient states that she was at a casino earlier today at a slot machine. She attempted to transition herself from the slot machine chair to her wheelchair but states that she must have forgotten to put one of the brakes on her wheelchair on. As she stood and put weight on her wheelchair it gave way causing her to fall to the ground, landing on her right side. She denies hitting her head or losing consciousness. Denies symptoms prior to her fall such as lightheadedness, dizziness, chest pain, shortness of breath, palpitations, paresthesias, or unilateral weakness. Her only pain at this time is right hip pain with any movement. She confirms that she had her a.m. dose of Eliquis, Sade explains that the patient is due for her afternoon dose of metoprolol. Patient denies recent fever, chills, chest pain, shortness of breath, cough, abdominal pain, nausea/vomiting, dysuria, hematuria, increased urinary frequency, diarrhea, or lower extremity swelling. We discussed CODE STATUS, the patient has a living will and is a DNR/DNI. If the patient cannot make decisions herself she clearly stated that she would want Phani Salomon and his Sade Salomon, who are bedside, to make medical decisions for her as they know her wishes. Please refer to Dr. House's attestation for any changes to the treatment plan. Discharge Exam gen - thin, NAD, looks well neck - no JVD mouth - MMM heart - irregular, rate ~100 BPM, s1 s2, 2-3/6 holosystolic murmur loudest RUSB lungs - CTA b/l abd - soft NT ND BS+ ext - no ankle edema, pulses 2+ b/l psych - a/o x 3 Updated Medication List Medication Instructions Recorded Confirmed Type apixaban 2.5 mg tablet (Eliquis) 2.5 mg PO BID 08/30/23 12/18/23 History atorvastatin 10 mg tablet 10 mg PO QAM 08/30/23 12/18/23 History cholecalciferol (vitamin D3) 125 125 mcg PO QAM #30 tabs 09/06/23 12/18/23 Rx mcg (5,000 unit) tablet cyanocobalamin (vitamin B-12) 500 1,000 mcg (2 x 500 mcg) PO QAM #30 09/06/23 12/18/23 Rx mcg tablet tabs digoxin 125 mcg (0.125 mg) tablet 125 mcg PO Q OTHER DAY 12/18/23 12/18/23 History magnesium oxide 400 mg (241.3 mg 800 mg PO QAM 12/18/23 12/18/23 History magnesium) tablet acetaminophen 500 mg tablet 1,000 mg (2 x 500 mg) PO Q8H PRN 12/24/23 12/18/23 Rx (Tylenol Extra Strength) pain #10 tabs ferrous sulfate 325 mg (65 mg 325 mg PO DAILY #30 tabs 12/24/23 Rx iron) tablet folic acid 1 mg tablet 1 mg PO QAM #30 tabs 12/24/23 Rx metoprolol tartrate 50 mg tablet 50 mg PO TID #90 tabs 12/24/23 Rx pantoprazole 40 mg tablet,delayed 40 mg PO BID #60 tabs 12/24/23 Rx release (Protonix) thiamine HCl (vitamin B1) 100 mg 200 mg (2 x 100 mg) PO BID 30 days 12/24/23 Rx tablet #120 tabs Hospital Stay Data Consultations 12/18/23 17:18 ED Decision to Admit Stat 12/18/23 17:58 Consult Orthopedic Surgery Routine Procedures Performed Operation Date: 12/20/23 07:00 Actual Procedures p Right hip hemiarthroplasty(Right) - Humberto Eva Benavides MD Diagnostic Imagining Performed 12/18/23 15:38 CT abd pelvis IV con only Stat CT cervical spine wo con Stat CT head/brain wo con Stat Pending Results Patient Have Any Pending Studies at Discharge: No Discharge Instructions Given to Patient (Per Discharging Provider) Ms Burden, [place] were hospitalized after suffering a fall which led to a right hip fracture. Your hip was repaired by Dr Benavides, [facility], on 12/20/23. You overall have done very well since your surgery. PT/OT saw you and your walking was excellent. PT/OT both felt you could return home with your family. We have set you up with home PT/OT/nursing. During the stay you had a moderate amount of blood loss in and around the time of your surgery. This is fairly normal. The blood loss leads to anemia. We also discovered that you are low on folic acid, an essential vitamin that allows your body to make red cells. You mentioned to the doctors at [facility] as well as your providers here that you have had weight loss over the last 6 months as well as upper gastrointestinal (GI) symptoms. There are times that you have trouble swallowing. It is possible that some of your weight loss and GI symptoms came from your diabetes medicine called Red. I cannot rule out an esophagus or stomach problem causing the weight loss. Speech therapy saw you in consult and recommended a "SOFT & BITE-SIZED" diet. Please see handout. This diet will allow for easier swallowing. Finally, your atrial fibrillation at times was uncontrolled as evidenced by heart rates over 100. We made several adjustments to your medicines while here. On day of discharge your heart rate was in the 80s/90s at rest and 100-120 with walking. These numbers are very acceptable. I spoke with [facility] several times regarding your atrial fibrillation medicines and we are stopping your amiodarone and your diltiazem XR. Recommendations - 1. Diet - please follow the "soft & bite-sized" diet. Again - please see handout. 2. STOP your Rybelsus. Your blood sugars here have been controlled without it. Nearly all of your sugars have been less than 200 during your stay. 3. Nutritional deficiencies - take the following - * ferrous sulfate (iron) 325mg once daily; this is [id number]; take for 2- 3 months. This medicine will make your stools dark in color and possibly cause constipation. * folic acid 1mg daily x 30 days (prescription sent) * thiamine (vitamin B1) - 200mg twice daily x 30 days (prescription sent) * continue your vitamin D and vitamin B12 as previous 4. Acid rn transfer - * STOP your omeprazole and change to - * PANTOPRAZOLE 40mg twice daily every day (prescription sent) 5. Atrial fibrillation medicines - * STOP the following - * amiodarone * diltiazem XR * INCREASE your metoprolol tartrate to 50mg three times daily (prescription sent) * CONTINUE as previous - * digoxin 125mcg every other day (your next dose is due on 12/25/23) * Eliquis 2.5mg twice d aily 6. Check your blood pressure and heart rate twice daily until you see your family doctor. Write these numbers down in a notebook and show them to your family doctor. 7. Check your blood sugars twice daily if possible and write these numbers down in a notebook as well. Show these to your family doctor. 8. If you suffer from any constipation issues you can take 1 or both of the following [id number] medicines - * miralax 1 serving daily and/or * senna 2 tablets daily Follow-up - * In addition to the appointments in the appointment section, please ask Dr Younger to set you up with your [facility] pol[facility] (GI) doctor in [place] due to the recent weight loss, swallowing difficulty, occasional vomiting, etc. Return to [facility] or any other hospital if - * you have fever over 100 degrees * you have worsening shortness of breath * you have chest pains * your heart rate is consistently greater than 100 (while at rest) * you feel dizzy or lightheaded * you have uncontrolled right hip pain * you have any concerns about your right hip dressings * any other concerns It was our pleasure to care for you! 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
== END 2023-12-24 17:52 | disposition home health service (06) | DRG 521 ==
LOC: SUATTDRO → ED 15:02 → SUATTDRO 17:41 → EDINP 17:41 → 3N 18:51
DX: E11.22 Type 2 diabetes mellitus with diabetic chronic kidney disease; I48.92 Unspecified atrial flutter; E43 Unspecified severe protein-calorie malnutrition; Y92.59 Other trade areas as the place of occurrence of the external cause; E53.8 Deficiency of other specified B group vitamins; R13.10 Dysphagia, unspecified; I48.91 Unspecified atrial fibrillation; Z79.01 Long term (current) use of anticoagulants; D62 Acute posthemorrhagic anemia; W07.XXXA Fall from chair, initial encounter; L89.152 Pressure ulcer of sacral region, stage 2; N18.30 Chronic kidney disease, stage 3 unspecified; M84.451A Pathological fracture, right femur, initial encounter for fracture; N17.9 Acute kidney failure, unspecified; Z66 Do not resuscitate